=== PATIENT | male | born 1945 | race Caucasian/White ===

== ENCOUNTER 2016-10-10 10:36 | Emergency (ER) | payer OTHER, MEDICARE ==
--- NOTE | 2016-10-10 10:57 | CPEKG ---
Heart Rate: 65 RR Interval: 923 P-R Interval: 152 QRSD Interval: 86 QT Interval: 428 QTC Interval: 445 P [place]: 33 QRS [place]: -43 T Wave [place]: 15 EKG Severity - ABNORMAL ECG - EKG Impression: SINUS RHYTHM EKG Impression: LEFT ANTERIOR FASCICULAR BLOCK Electronically Signed By: Kirk Esparza 10-Oct-2016 15:49:13
--- NOTE | 2016-10-10 11:36 | DX ---
PA and Lateral Chest Clinical Indications: Dyspnea, sleep apnea, history of prostate cancer Comparison: July 08, 2016 January 21, 2014 Findings: There appears to be a destructive lytic process involving the posterior right second rib wh ere there may be a pathological fracture present. This is associated with some localized convex pleur al thickening The lungs are clear, and no lung mass or adenopathy are found. The heart and pulmonary vessels are normal. There are no pneumonia , pleural effusions or pneumothorax. No other lytic bon e lesion is identified. There is possibly some subtle new sclerosis in the T9 vertebral body. EKG chris ds overlie the chest. Impression: 1. Suspicious for bony metastatic disease. Consider chest CT and/or nuclear medicine who le-body bone scan for further evaluation. 2. No pneumonia identified. Results called to Dr. Kirk Esparza.
[2016-10-10 11:38] VITALS: RESP 16
--- NOTE | 2016-10-10 11:46 | UCPHY ---
H & P Patient Type: Established Chief Complaint Nursing Narrative: cough and chest congestion started on monday , chest discomfort with cough, left arm "nerve pain." denies fevers. shortness of breath Time Seen by Provider: 10/10/16 10:59 HPI/ROS: This patient with a history of metastatic prostate cancer presents with a cough and feeling of chest congestion that started over the weekend. He reports 2 days of symptoms. He has associated low-grade subjective fevers and nasal congestion. He also has noticed over the past month some left arm pain that feels like "nerve pain". He notices this primarily around the elbow area but reports that migrates up and down the arm a bit. This seems to be worse with movement of the arm and of the neck. He reports the pain is moderate intensity. ROS: constitutional: No headache Neuro: No numbness tingling or focal weakness Pulmonary: No pleuritic pain cardiovascular: No heart palpitations. No lower extremity swelling. Integumentary: No new skin rash. musculoskeletal: He has chronic neck pain and reports having some radicular symptoms in the past from his neck. 7 point ROS is otherwise negative Source: Patient Exam Limitations: No limitations - Medical/Surgical History Hx Asthma: No Hx Chronic Respiratory Disease: No Hx Diabetes: No Hx Cardiac Disease: No Hx Renal Disease: No Hx Cirrhosis: No Hx Alcoholism: No Hx HIV/AIDS: No Hx Splenectomy or Spleen Trauma: No Other PMH: Prostate cancer - Metastatic including bony Mets., knee replacements - Family History Significant Family History: No pertinent family hx - Social History Smoking Status: Former smoker Alcohol Use: Occasionally Drug Use: None - Physical Exam Exam: General Appearance: Alert, no distress. Eyes: Pupils equal and round no pallor or injection. ENT, Mouth: Mucous membranes moist. Neck: Supple. He has mild left lateral paraspinous muscular tenderness. With lateral flexion of the neck toward the left side seems to have more left arm symptoms Respiratory: Mild rhonchi bilaterally. No significant wheezing. No rales appreciated. Cardiovascular: Regular rate and rhythm. No murmur gallop rub. He has 2+ symmetric radialis pulses bilaterally. No lower extremity calf swelling or tenderness. Gastrointestinal: Abdomen is soft and nontender, no masses, bowel sounds normal. Neurological: alert. Patient maintains normal light touch sensory exam bilateral upper extremities and 5/5 strength bilateral upper extremities. He has weak but symmetric DTRs in biceps, triceps and brachioradialis bilaterally Skin: Warm and dry, no rashes. Extremities are symmetrical, full range of motion. Psychiatric: mood and affect are normal DIFFERENTIAL DIAGNOSIS: After history and physical exam differential diagnosis was considered for viral URI with cough, bronchitis, pneumonia, cervical radiculopathy, doubt cardiac ischemia, new bony Mets Constitutional: Initial Vital Signs Temperature (C) 36.9 C 10/10/16 10:44 Heart Rate 70 10/10/16 10:44 Respiratory Rate 18 10/10/16 10:44 Blood Pressure 133/86 H 10/10/16 10:44 O2 Sat (%) 95 10/10/16 10:44 O2 Delivery Mode Room Air Allergies/Adverse Reactions: morphine Allergy (Intermediate, Verified 10/10/16 11:02) HALLUCINATIONS, AGGRESSION Home Medications: Medication Instructions Recorded Hydrocodone/Acetaminophen 1 each PO Q4H PRN #90 tablet 01/16/16 [Hydrocodon-Acetaminophn 10-325] Doxycycline Hyclate 07/08/16 Effexor 07/08/16 Gabapentin 07/08/16 Lupron 07/08/16 Pravastatin Sodium 07/08/16 Xanax 07/08/16 Xtandi 07/08/16 Zometa 07/08/16 Albuterol Hfa Anes Only [Proair 2 puffs IH Q4 PRN #1 mdi 10/10/16 Hfa Icu (*)] Fluticasone Nasal [Flonase Nasal 2 sprays NASAL DAILY #1 mdi 10/10/16 [facility] (RX)] Gabapentin 200 mg PO BID #60 tablet 10/10/16 Medical Decision Making - Diagnostics EKG Interpretation: 12 lead EKG performed shortly after arrival at 10:55 a.m. reveals normal sinus rhythm at 65 his left anterior fascicular block. No acute ischemic changes. For complete read please see trace master Imaging: chest x-ray: Dr. Paul -radiologist called before I was read this x-ray noting that appears to be metastatic erosion of the right 2nd rib. He also has findings consistent with bronchitis but no focal infiltrates. ED Course/Re-evaluation: patient was initially placed on a monitor remained stable through his stay. I have counseled him regarding his bronchitis. Not think he is having a cardiac event. I think that his left arm pain is musculoskeletal will -likely a cervical radiculopathy without heart neuro deficits verses bony Mets. I counseled him regarding the evidence of any new bony mets to the right 2nd rib. He reports that he had a bone scan a couple weeks ago that was negative for that region at that time. I left a message with Dr. Maldonado regarding this finding -his oncologist. Their office was closed the day of the phone call. Encouraged patient follow up with Dr. Maldonado Despite the patient's bronchitis he appears clinically well without evidence of respiratory compromise or other concerning findings. Departure - Departure Disposition: Home, Routine, Self-Care Clinical Impression: Bronchitis, Left arm pain, Right 2nd rib bony erosion -possible met Condition: Good Instructions: Acute Bronchitis (ED) Additional Instructions: Diagnoses: 1. Bronchitis 2. Left arm pain Plan: humidifier Albuterol inhaler with spacer for cough, wheeze or shortness of breath Flonase steroid nasal spray for nasal congestion Follow up with primary care physician for any ongoing symptoms Good the emergency department for any significant worsening despite treatment plan Referrals: NONE *PRIMARY CARE P,. [Primary Care Provider] - As per Instructions Prescriptions: Fluticasone Nasal [Flonase Nasal [facility] (RX)] 2 sprays NASAL DAILY #1 mdi Gabapentin 200 mg PO BID #60 tablet Albuterol Hfa Anes Only [Proair Hfa Icu (*)] 2 puffs IH Q4 PRN #1 mdi PRN Reason: Wheezing - PQRS PQRS Measurement: 134: Depression screening and followup, PRIME MD-PHQ2 (12 years and older) Over the last 2 weeks, how often have you been bothered by any of the following problems? 1. Feeling down, depressed, or hopeless? 2. Little interest or pleasure in doing things? Patient answered no to both 1 and 2 130: Documentation of medications. Reviewed all patient medications, doses, route and frequency. 226: Do you smoke? [No.] 47: 65 and older: Advanced care planning. Patient designates surrogate decision maker as [Patient has advanced directive.] 51: 18 years old and older with diagnosis of COPD, spirometry performance. NA 52: 18 years old and older with COPD and symptoms of COPD or FEV1<60% predicted prescribed a B Agonist. NA
[2016-10-10 12:00] VITALS: BP 118/73; PULSE 59; TEMP 98.6; O2SAT 91
== END 2016-10-10 12:00 | disposition home or self-care (01) ==
LOC: CED 10:36
DX: J20.9 Acute bronchitis, unspecified (principal); Z85.46 Personal history of malignant neoplasm of prostate; C79.51 Secondary malignant neoplasm of bone; Z87.891 Personal history of nicotine dependence; Z96.653 Presence of artificial knee joint, bilateral
CPT/HCPCS: 71020; 93005; G0463; 87400-PO; 93010-PO; 99214-PO

== ENCOUNTER 2016-10-20 12:18 | Inpatient (IN) | payer OTHER, MEDICARE ==
[2016-10-20] MEDS ORDERED: HYDROmorphONE/DILAUDID 1 MG/ML SYR IVP ONE ×2 (13:21→17:30)
--- NOTE | 2016-10-20 13:28 | EDPHY ---
[id number]/12/17 12:50 HPI/ROS: CHIEF COMPLAINT: Increasing thoracic back pain HISTORY OF PRESENT ILLNESS: The patient has a history of aggressive metastatic prostate cancer. He has a history of known metastases in his thoracolumbar spine. He has undergone spinal radiation. Over the past 3 weeks he has had increasing pain in his thoracic spine without the development of acute lower extremity weakness or numbness. The patient reports his t pain is somewhat left -sided The patient has been taking oral narcotics at home without improvement. The patient contacted his regular oncologist who referred him to the hospital for admission and further evaluation of his back pain. REVIEW OF SYSTEMS: A comprehensive 10 point review of systems is otherwise negative aside from elements mentioned in the history of present illness. Source: Patient Exam Limitations: No limitations - Personal History Current Tetanus/Diphtheria Vaccine: Yes - Medical/Surgical History Hx Asthma: No Hx Chronic Respiratory Disease: No Hx Diabetes: No Hx Cardiac Disease: No Hx Renal Disease: No Hx Cirrhosis: No Hx Alcoholism: No Hx HIV/AIDS: No Hx Splenectomy or Spleen Trauma: No Other PMH: Prostate cancer - Metastatic including bony Mets., knee replacements - Social History Smoking Status: Former smoker - Physical Exam Exam: General Appearance: Alert, mild discomfort Eyes: Pupils equal and round no pallor or injection ENT, Mouth: Mucous membranes moist Respiratory: There are no retractions, lungs are clear to auscultation Cardiovascular: Regular rate and rhythm Gastrointestinal: Abdomen is soft and nontender, no masses, bowel sounds normal Neurological: A&O, normal motor function, normal sensory exam, normal cranial nerves Skin: Warm and dry, no rashes Musculoskeletal: Neck is supple nontender Extremities: symmetrical, full range of motion Constitutional: Initial Vital Signs Temperature (C) 36.6 C 10/20/16 12:24 Heart Rate 76 10/20/16 12:24 Respiratory Rate 18 10/20/16 12:24 Blood Pressure 137/52 H 10/20/16 12:24 O2 Sat (%) 95 10/20/16 12:24 O2 Delivery Mode Room Air Allergies/Adverse Reactions: morphine Allergy (Intermediate, Verified 10/20/16 12:23) HALLUCINATIONS, AGGRESSION Home Medications: Medication Instructions Recorded Hydrocodone/Acetaminophen 1 each PO Q4H PRN #90 tablet 01/16/16 [Hydrocodon-Acetaminophn 10-325] Doxycycline Hyclate 07/08/16 Effexor 07/08/16 Gabapentin 07/08/16 Lupron 07/08/16 Pravastatin Sodium 07/08/16 Xanax 07/08/16 Xtandi 07/08/16 Zometa 07/08/16 Albuterol Hfa Anes Only [Proair 2 puffs IH Q4 PRN #1 mdi 10/10/16 H[facility] (*)] Fluticasone Nasal [Flonase Nasal 2 sprays NASAL DAILY #1 mdi 10/10/16 [facility] (RX)] Gabapentin 200 mg PO BID #60 tablet 10/10/16 Medical Decision Making ED Course/Re-evaluation: The patient presents to the emergency department with intractable pain. The patient will require admission to the hospital. The patient is noted to be neurologically intact. The patient had an IV established. He received IV Dilaudid. The patient will be admitted to the hospital for further evaluation of his thoracic pain which is unmanageable. An MRI of his brain cervical spine and thoracic spine have been ordered at the request of his regular oncologist Dr. Maldonado. Consultation is made with Dr. Sebastián Estrada from the hospitalist service who will admit the patient. Differential Diagnosis: Differential diagnosis worsening spinal metastatic disease, worsening central metastatic disease, thoracic radiculopathy - Data Points Medications Given: Discontinued Medications Hydromorphone HCl (Dilaudid) 1 mg IVP EDNOW ONE Stop: 10/20/16 13:22 Last Admin: 10/20/16 13:27 Dose: 1 mg Departure - Departure Disposition: [facility] In[facility] Acute Clinical Impression: Prostate cancer metastatic to bone, Intractable back pain Condition: Fair
[2016-10-20] MEDS ORDERED: ONDANSETRON 4 MG/2 ML VIAL IVP PRN (14:23)
[2016-10-20] MEDS ORDERED: PROMETHAZINE HCL 25 MG/ML VIAL IVP PRN (14:23)
[2016-10-20] MEDS ORDERED: BISACODYL 10 MG SUPP PR PRN (14:24)
[2016-10-20] MEDS ORDERED: LACTULOSE 20 GM/30 ML UDCUP PO PRN (14:24)
[2016-10-20] MEDS ORDERED: POLYETHYLENE GLYCOL 3350 17 GM PKT PO PRN (14:24)
[2016-10-20] MEDS ORDERED: MAGNESIUM HYDROXIDE 30 ML UDCUP PO PRN (14:24)
[2016-10-20] MEDS ORDERED: HYDROmorphONE/DILAUDID 2 MG TAB ONE (14:31)
[2016-10-20] MEDS: HYDROmorphONE/DILAUDID 2 MG TAB PO PRN ×2 (14:34→18:08)
[2016-10-20] MEDS ORDERED: GADOBUTROL 10 ML VIAL IVP ONE (14:55)
--- NOTE | 2016-10-20 14:56 | GHP ---
[f rep st] HISTORY AND PHYSICAL DATE OF ADMISSION: 10/20/2016 CHIEF COMPLAINT: Back, neck and left arm pain. HISTORY OF PRESENT ILLNESS: This is a 71-year-old male with history of metastatic prostate cancer wi th metastases to bone and liver. He was directly admitted from his oncologist's office today due to worsening back, neck and left arm pain. The patient states that the pain is an 8/10, sharp, constant pain in his left midback, neck and left arm. He states his midthoracic back is numb, but has been s o since he has undergone radiation therapy for metastasis. He has been taking hydrocodone around the clock which decreases his pain to a 2-3, but the pain has been escalating to the point where it has not been as effective. The patient denies any recent trauma. He did notice a correlation with some pain that he described a s a muscle pain in his upper back that occurred at the end of August, early September after shohussain ruiz. PAST MEDICAL HISTORY: 1. Prostate cancer with metastases to liver and bone. 2. Pulmonary embolism on anticoagulation. PAST SURGICAL HISTORY: 1. Bilateral total knee replacements. 2. Appendectomy. 3. Hernia repair. 4. Eye surgery due to a detached retina. 5. Radiation therapy. HOME MEDICATIONS: Reviewed, refer to [facility] for details. ALLERGIES: Morphine has caused hallucinations. SOCIAL HISTORY: The patient is and lives with his . He is a former smoker. He denies a ny alcohol or illicit drug use. FAMILY HISTORY: Reviewed and is significant for coronary artery disease in his father as well as sharyn g cancer. REVIEW OF SYSTEMS: A comprehensive 10-point review of systems was done and is negative except for wh at was mentioned in the HPI and below. CONSTITUTIONAL: The patient reports some hot flashes which h e contributes to his Lupron therapy for which he takes Effexor which helps with the vasomotor symptom s. GI: The patient reports problems with constipation, but did have a bowel movement today. PHYSICAL EXAMINATION: VITAL SIGNS: Blood pressure 137/52, pulse of 76, respiratory rate 18, O2 satu ration 95% on room air, temperature afebrile. GENERAL: In no acute distress. HEAD: Normocephalic, atraumatic. EYES: PERRLA. Sclerae anicteric. MOUTH: Moist mucous membranes. NECK: Supple. No lymphadenopathy. CARDIOVASCULAR: S1, S2 no JVD. No lower extremity edema. PULMONARY: Lungs are clear. No wheezes, rales, or rhonchi. ABDOMEN: Soft, nontender, nondistended. No guarding or rebo und tenderness. Normoactive bowel sounds. EXTREMITIES: No clubbing or cyanosis. NEURO: Cranial n erves 2-12 grossly intact. Muscle strength 5/5 bilateral upper extremity flexion and extension, musc le strength 5/5 mems engineer bilaterally. No gross sensory deficits. BACK: There is tenderness in the midt horacic region in the paraspinal musculature adjacent T7 through T10, with no obvious deformities or step-offs. DIAGNOSTICS: None have been done at the time of my exam. ASSESSMENT AND PLAN: This is a 71-year-old male with history of metastatic prostate cancer presentin g with: 1. Severe intractable thoracic, neck, and left arm pain without any focal neurologic deficits, yokasta rning for a pathologic fracture. Plan: I discussed the case with Dr. Anthony Maldonado who is his [facility] oncologist and will proceed with an MRI of the brain, C-spine, T-spine, and L-spine. For now we will treat his pain supportively with both IV and oral Dilaudid. He will be placed on a bowel tamy col. His home dose of Neurontin will be continued and we may consider up-titrating the dose as indic ated as well as possibly adding a steroid. 2. History of pulmonary embolism. Plan: We will continue his home dose of warfarin and monitor his INR daily. The patient will be admitted to the hospital under observation status at this time pending further w orkup. /[id number]/MODL
[2016-10-20] MEDS ORDERED: WARFARIN SODIUM 5 MG TAB PO SCH (16:00)
[2016-10-20] MEDS ORDERED: LEUPROLIDE ACETATE SQ SCH (16:15)
[2016-10-20] MEDS: HYDROmorphONE/DILAUDID 2 MG/ML SYR IVP PRN (16:34)
[2016-10-20] MEDS ORDERED: HYDROmorphONE/DILAUDID 1 MG/ML SYR ONE (16:36)
--- NOTE | 2016-10-20 17:06 | MR ---
MRI of the Brain (Without and With Contrast) Clinical Indication: Severe brain pain in a 71-year-old male with metastatic prostate cancer; evalua te for intracranial extension. Technique: T1-weighted images were acquired axially and sagittally from the foramen magnum to the ve rtex. Axial T1-weighted, susceptibility-weighted, fast inversion-recovery, fast T2-weighted, and dif fusion-weighted axial images were obtained, without contrast. Following uneventful intravenous admin istration of 10 mL Gadavist contrast, axial T1-weighted images were performed. This contrast dose wa s employed for evaluation of the head, cervical and thoracic spinal regions. Findings: Multiple expansile osseous lesions are identified. There are two in the left parietal and temporoparietal regions. The more superior lesion measures 4 cm AP x 1.5 cm transverse. This tumor impinges on the adjacent subarachnoid space. The left temporal region osseous tumor measures 3 cm A P x 1 cm transverse. This lesion also impinges on subarachnoid space. A 3rd osseous lesion anterior ly in the frontal region measures 3 cm transverse x 1.5 cm AP. This also impinges on subarachnoid sp joseph. There is prominent asymmetric meningeal enhancement on the left side worrisome for carcinomatous involvement versus bland meningitis secondary to the adjacent tumor. No parenchymal mass lesion is identified. No hemorrhage is seen. Midline structures are in normal p ositions. Scattered areas of white matter T2 hyperintensity are seen, which do not demonstrate abnor mal enhancement and presumably are related to small vessel vascular change. Vascular structures appea r normal. Paranasal sinuses are clear. Impression: 1. 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 2. Asymmetric meningeal enhancement is worrisome for carcinomatous involvement versus gland meningiti s. 3. See above report for additional findings.
--- NOTE | 2016-10-20 17:29 | MR ---
MRI Cervical Spine (Without and With Contrast) History: Prostate cancer, with osseous metastasis, neck pain, back pain, and left-sided pain. Technique: Sagittal T1, T2, and axial T1, T2 MR sequences of the cervical spine, without contrast. Postcontrast sagittal and axial T1-weighted sequences obtained, with the uneventful intravenous admin istration of 10 mL Gadavist contrast utilized for the MRI of the brain, cervical spine, and thoracic spine. Findings: Multiple osseous metastases involving the vertebral bodies, most prominent at C5, C6, C7, T1, and T2, as well as the spinous processes of C6, C7, and T1. No pathologic compression fractures. C7 spinous process osseous metastases, with a dorsal epidural extension of metastasis and osseous met astasis, measuring 14 x 6 mm in sagittal dimension and 22 x 6 mm in axial dimension, extending into t he dorsal epidural space resulting in severe central canal stenosis, with cord compression, flattenin g and deformity, as well as cord edema from C6 through C7. Cerebellar tonsils are in normal positio n. C2-C3: Mild bilateral facet arthropathy resulting in mild to moderate right neural foraminal stenosi s, without central canal stenosis. C3-C4: Mild bilateral facet arthropathy resulting in mild to moderate bilateral neural foraminal boris nosis, without central canal stenosis. C4-C5: Moderate degenerative disk disease, with dorsal disk/osteophyte complex, mild bilateral facet arthropathy, and bilateral uncovertebral osteophytes, resulting in moderate central canal stenosis, with slight cord compression, and moderate to severe bilateral neural foraminal stenosis. C5-C6: Moderate degenerative disk disease, with dorsal disk/osteophyte complex, bilateral uncoverteb ral osteophytes, and mild bilateral facet arthropathy, resulting in moderate central canal stenosis, with partial effacement of the subarachnoid space, and moderate to severe bilateral neural foraminal stenosis. C6-C7: Severe degenerative disk disease, with degenerative grade 1 anterolisthesis, dorsal disk/oste ophyte complex, asymmetrically more prominent towards the left, bilateral uncovertebral osteophytes, and dorsal metastasis from the C6-C7 disk space level through C7, resulting in severe central canal s tenosis, with cord compression, flattening, and cord edema. C7-T1: Moderate degenerative disk disease, with dorsal disk/osteophyte complex, bilateral uncoverteb ral osteophytes, resulting in mild central canal stenosis and mild left neural foraminal stenosis. Impressions 1. Severe central canal stenosis and cord compression and deformity at C6-C7 secondary to dorsal epi dural metastasis, with cord edema. Recommend Neurosurgery Consult. 2. Multiple osseous metastases involving the vertebral bodies and posterior elements, most prominen t involving the spinous process of C7 and T1, and vertebral bodies of C5, C7, and T2. 3. Multilevel moderate to severe degenerative disk disease from C4-C5 through C7-T1, with dorsal dis k/osteophyte complexes and bilateral uncovertebral osteophytes, also resulting in moderate central ca nal stenosis at C4-C5 and C5-C6, and moderate to severe bilateral neural foraminal stenosis, as descr ibed above, worse at C4-C5, C5-C6, and C6-C7. 4. Please see above findings at specific disk levels. Findings and recommendations discussed with hospitalist, Dr. Sebastián Estrada, at 1656 hours, on October. A test result has been communicated to licensed care providers and documented in [facility]: 5:40:12 PM, 10/20/2016, Pansieve Message ID [id number]. 5:40:13 PM, 10/20/2016, [facility]ieve Message ID [id number].
--- NOTE | 2016-10-20 17:34 | MR ---
MRI Thoracic Spine Without and With Contrast 1603 hours History: Metastatic prostate carcinoma, worsening back and left pain. Technique: Sagittal T1/T2/STIR and axial T1/T2-weighted and post-contrast sagittal and axial t1-weigh gonzalez MR series of the thoracic spine prior to and following the uneventful intravenous administration of 10 mL of Gadavist contrast for the MRI of the brain, cervical spine thoracic spine. Findings: Multiple osseous metastasis throughout the thoracic vertebral bodies, most prominent at T3, T5, T7, T8, T9, and T12 vertebra with greater than 80% involvement of T9. Mild compression deformity of T9 vertebral body with 10% loss of height and minimal retropulsion. However, no evidence of cord compression. No cord compression or edema. Enhancement of multiple osseous vertebral bodies, especially T2, T5, T8 , T9, and T12. No evidence of enhancing cord lesions. Multilevel mild to moderate degenerative disk disease and mild to moderate bilateral facet arthropath y in the thoracic spine without evidence of thoracic disk herniations. Mild to moderate bilateral khloe ral foraminal stenosis at several levels secondary to degenerative disk disease and facet arthropathy . However, no significant central canal stenosis. Impression: 1. Multiple osseous metastasis involving the thoracic spine most prominent at T8, T9 and T12 vertebra l bodies with mild compression deformity of T9 and minimal retropulsion. 2. However, no evidence of cord compression in the thoracic spine.
[2016-10-20] MEDS ORDERED: NALOXONE HCL 0.4 MG/ML INJ IVP PRN (19:30)
[2016-10-20] MEDS: HYDROmorphONE/DILAUDID 6 MG/30 ML PCA IV PRN (19:52)
[2016-10-20] MEDS: SENNOSIDES/DOCUSATE SODIUM TAB PO SCH (20:09)
[2016-10-20] MEDS: ALPRAZolam 0.5 MG TAB PO SCH (20:09)
[2016-10-20] MEDS: GABAPENTIN 100 MG CAP PO SCH (20:09)
[2016-10-20] MEDS: PRAVASTATIN SODIUM 40 MG TAB PO SCH (20:09)
[2016-10-20] MEDS: DOXYCYCLINE HYCLATE 100 MG CAP/TAB PO SCH (20:10)
--- NOTE | 2016-10-20 23:52 | GCON ---
[f rep st] CONSULTATION NEUROSURGICAL CONSULTATION NOTE. DATE OF CONSULTATION: 10/20/2016 CONSULTING SERVICE: Hospitalist, Medicine, and Medical Oncology, Dr. Maldonado. REASON FOR CONSULTATION: Cervical epidural metastatic deposit with cord compression. HISTORY OF PRESENT ILLNESS: The patient is a pleasant 71-year-old gentleman who was diagnosed with p rostate cancer back in 2011. He has known metastatic disease to the liver and bony skeleton, includi ng the thoracolumbar spine. He has had brachytherapy to his liver mets and has also had radiation tr eatment to his thoracic spinal column, as well as to his calvarium where he has known mets as well. He has just completed calvarial radiation. He is also on maintenance chemotherapy with Dr. Maldonado. His radiation oncologist is Dr. Ben Dowd. 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 The intensity of his symptoms has increased during this time period. He was seen in Dr. Maldonado's office today and MRIs were ordered, and he was found to have a new juliette jessica epidural metastatic deposit at the C7 level, with significant cord compression likely explaining his new symptoms. The patient was admitted to the [facility], and I was consulted fo r surgical considerations. He has been taking hydrocodone and this does help with his pain control, but its effects are short-lived. Of note, he does have a history of pulmonary embolus and is anticoa gulated, and did take his Coumadin dose today. PAST MEDICAL AND SURGICAL HISTORY: As per HPI. Bilateral total knee replacements, appendectomy, her bebo repair, eye surgery due to a detached retina. ALLERGIES: Morphine. FAMILY HISTORY: Significant for coronary artery disease in his father, and lung cancer. SOCIAL HISTORY: Patient is , lives with his . He is a former smoker. He denies alcohol or illicit drug use or abuse. REVIEW OF SYSTEMS: Negative other than HPI. A 10-point review of system was done. PHYSICAL EXAMINATION: VITALS: T current 36.8, blood pressure 140/79, heart rate 70, respiratory rat e 18, saturating 98% on 2 L nasal cannula, saturating 93% on room air. NEUROLOGICAL: The patient is awake, alert, oriented x3, and appears stated age. He is in no acute d istress, but he is in obvious discomfort, and he has to occasionally stand and walk to relieve his ne ck and back pain. He has normal cranial nerve findings. He has a normal neurological exam. He has full strength in his upper extremities, except his left triceps is a 4 out of 5 in terms of power. Lili cm has a normal sensory exam. He has a normal reflex exam. He has a normal gait without balance issu es. He localizes his neck pain to approximately the C7 level posteriorly. LABS: There are no laboratory studies for review at this time. REVIEW OF IMAGING: The patient has an MRI of the brain, cervical and thoracic spine with and without contrast for review. To my read, he has known calvarial metastases, largest on the left side. He h as metastatic disease to his thoracic spinal column, but no epidural component and no obvious progres beata either. He has a dorsal epidural metastatic deposit at C7 with cord compression and neural fora seth narrowing bilaterally. ASSESSMENT AND PLAN: The patient is a 71-year-old male with history of pulmonary embolus, who is ful ly anticoagulated on warfarin, and a history of widely metastatic prostate cancer originally diagnose d in 2011, now with known mets to the liver, bony skeleton, spinal column, and calvarium, who has had 3 weeks of progressive neck and left scapular and left arm symptoms, including pain and numbness ezra n to his hand and some mild triceps weakness, with a C7 dorsal epidural metastatic deposit with cord compression. The patient's neurological exam is surprisingly good, and his main complaint is pain at this time. He is fully anticoagulated for pulmonary embolus, so it is important to hold his anticoa gulation and allow his INR to drift down to normal. I did discuss the case with Dr. Maldonado, his on cologist, and we decided that C6-7 laminectomy for resection of his epidural metastatic lesion is the best course of action at this time. I have discussed the timing of this with the operating room, an d tentatively have it planned for Monday, allowing us enough time for his INR to normalize. In terms of pain control, IV Decadron 4 mg q.6 hours, and also consider the addition of Neurontin and Toradol IV as needed to assist with pain control in the meantime. His neurological exam is being monitored, and I should be contacted with any changes. Following very closely. Thank you for this consult. /[id number]/MODL
[2016-10-21] MEDS: HYDROmorphONE/DILAUDID 6 MG/30 ML PCA IV PRN ×3 (02:45→21:28)
[2016-10-21 05:38] LABS: % IMMATURE GRANULYOCYTES 0.3 % (0.0-1.1); ABSOLUTE IMMATURE GRANULOCYTES 0.01 10^3/uL (0.00-0.10); ADD DIFF? NO; ADD MORPH? NO; ADD SCAN? NO; ATYPICAL LYMPHOCYTE FLAG 40 (0-99); FRAGMENT RBC FLAG 0 (0-99); HEMATOCRIT 37.5 % (40.0-51.0); HEMOGLOBIN 12.9 g/dL (13.7-17.5); LEFT SHIFT FLG 0 (0-99); LIPEMIA HEMOLYSIS FLAG 90 (0-99); MEAN CELL HEMOGLOBIN 33.9 pg (27.9-34.1); MEAN CELL HEMOGLOBIN CONCENTR. 34.4 g/dL (32.4-36.7); MEAN CELL VOLUME 98.7 fL (81.5-99.8); MEAN PLATELET VOLUME 9.2 fL (8.7-11.7); PLATELET CLUMPS FLAG 0 (0-99); PLATELET COUNT 186 10^3/uL (150-400); RED CELL DISTRIBUTION WIDTH 12.2 % (11.5-15.2)
[2016-10-21 05:46] LABS: INR 1.69 (0.83-1.16); PROTIME(PATIENT) 19.9 SEC (12.0-15.0)
[2016-10-21 05:54] LABS: ALANINE AMINOTRANSFERASE 32 IU/L (21-72); ALBUMIN 3.3 g/dL (3.5-5.0); ALKALINE PHOSPHATASE 118 IU/L (38-126); ANION GAP 8 mEq/L (8-16); ASPARTATE AMINOTRANSFERASE 37 IU/L (17-59); BILIRUBIN,TOTAL 0.9 mg/dL (0.1-1.4); CALCIUM 8.2 mg/dL (8.5-10.4); CARBON DIOXIDE 27 mEq/l (22-31); CHLORIDE 104 mEq/L (97-110); CREATININE 0.8 mg/dL (0.7-1.3); GLOMERULAR FILTRATION RATE > 60; GLUCOSE 94 mg/dL (70-100); POTASSIUM 4.6 mEq/L (3.5-5.2); SODIUM 139 mEq/L (134-144)
[2016-10-21] MEDS: HYDROmorphONE/DILAUDID 2 MG TAB PO PRN (06:06)
[2016-10-21] MEDS: DOXYCYCLINE HYCLATE 100 MG CAP/TAB PO SCH ×2 (08:17→21:33)
[2016-10-21] MEDS: SENNOSIDES/DOCUSATE SODIUM TAB PO SCH ×2 (08:17→21:33)
[2016-10-21] MEDS: GABAPENTIN 100 MG CAP PO SCH ×4 (08:17→21:33)
[2016-10-21] MEDS: VENLAFAXINE XR 75 MG CAP PO SCH (08:18)
[2016-10-21] MEDS ORDERED: ENZALUTAMIDE 160 MG PO SCH (09:00)
--- NOTE | 2016-10-21 09:07 | NEUSURGPN ---
Assessment/Plan: 71 yo male with metastatic prostate CA and brachytherapy to liver, radiation to thoracic column and calvarium. 3 weeks of neck, scapular and left arm pain, numbness and dorsal epidural met at C7. Hx PEs and fully anticoagulated on coumadin (now held) Plan: Hold Coumadin and let INR drift down May consider use of Toradol or Gabapentin for additional pain control if needed. C6/7 on Monday10/24/[address] Gabriel Discussed plan with Dr. Rios this AM. Subjective: in bed, pain is getting under better control. 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 He has persistent tingling in left arm Denies LE symptoms Objective: NEURO: CUMMINS, sens decreases in entire left arm strength in left arm limited by pain Alert and oriented x 4, speech clear INR 1.69 today (coumadin is held) Urinary Catheter in Place: No Neurosurgery Physical Exam - Vitals, I&O, Labs I and O 10/20/16 10/21/16 10/22/16 05:59 05:59 05:59 Intake Total 1600 Balance 1600 Weight 111.584 kg Intake: Oral (ml) 300 IV Intake (ml) 300 IV Infused (ml) 1000 Other: Number of Voids Toilet 2 Vital Signs Temp Pulse Resp BP Pulse Ox 36.5 C 75 17 125/74 H 96 10/21/16 08:32 10/21/16 08:32 10/21/16 08:32 10/21/16 08:32 10/21/16 08:32 Laboratory Results 10/21/16 05:02 10/21/16 05:02 ICD10 Worksheet Patient Problems: Problems Problem Status Diagnosed Intractable back pain Acute Prostate cancer metastatic to bone Acute Bronchitis Acute Left arm pain Acute Post procedure discomfort Acute Primary osteoarthritis of left knee Acute Primary osteoarthritis of right knee Acute Prostate cancer metastatic to liver Acute
[2016-10-21] MEDS ORDERED: HYDROmorphONE/DILAUDID 6 MG/30 ML PCA IV STA (10:13)
--- NOTE | 2016-10-21 10:22 | SOAPPROG ---
SOAP Progress Note Assessment/Plan: Assessment: 1.) Metastatic Prostate Carcinoma with newly developing/diagnosed cord compression seen in C-Spine MRI 10/20/16. Appreciate Neurosurgery evaluation and planned Laminectomy. Georgina Score 4+5 = 9 Prostate Carcinoma, diagnosed 2011. First line Tx External beam XRT - finished 10/21+ ADT until 06/2014 ( 2 years) Local (prostate) recurrence early 2014, S/P Prostate Cryotherapy and Biclutamide added to Lupron Liver met ( 9 cm) mass, S/P Docetaxel x 6 cycles, followed by Y90 embolization to Liver met. Complicated by PE- 01/2016. Due to disease progression in RP LN, started on Xtandi mid-2015 Rad TX. to T spine T9-T12 Rad. Tx to local skull lesion Most recent PSA 36. Received Zolendronic acid on 10/18/16. Due for Lupron next week. 2.) PE- see above. 3.) Pain control- will increase Dilaudid in HAIRCUTTER to include basal infusion rate of 2 mg/hour and to allow PRN dosing. Plan: 1.) See above. 2.) Neurosurgery planning C spine laminectomy as soon as feasible. 3.) With INR down, pt. can receive therapeutic enoxaparin which would allow neurosurgery, as planned. 10/21/16 10:22 Subjective: Pain in LUE is most prominent, in addition to upper spine pain when he sits upright. On Dilaudid HAIRCUTTER his pain this AM is 6-7 down from 9-10 last night. No N/V/C/D. No difficulty with Urine output. Objective: Avebrile, VSS as noted here. HEENT- anicteric, no oral thrush, No facial assymetry Neck- supple Chest- clear anteriorly and posteriorly CVS- RSR, no extra HS ABD- soft, NT , no mass or HSM, BS+ EXT- 1+ symmetric leg edema, skin intact Neuro- intact to light touch over chest and UE. Labs as noted here Hgb 12.9, PLT 186. INR 1.69 this AM. Vital Signs Temp Pulse Resp BP Pulse Ox 36.5 C 75 17 125/74 H 96 10/21/16 08:32 10/21/16 08:32 10/21/16 08:32 10/21/16 08:32 10/21/16 08:32 Laboratory Results 10/21/16 05:02 10/21/16 05:02 10/20/16 10/21/16 10/22/16 05:59 05:59 05:59 Intake Total 1600 Balance 1600 PT 19.9 SEC (12.0-15.0) H 10/21/16 05:02 INR 1.69 (0.83-1.16) H 10/21/16 05:02 ICD10 Worksheet Patient Problems: Problems Problem Status Diagnosed Intractable back pain Acute Prostate cancer metastatic to bone Acute Bronchitis Acute Left arm pain Acute Post procedure discomfort Acute Primary osteoarthritis of left knee Acute Primary osteoarthritis of right knee Acute Prostate cancer metastatic to liver Acute
[2016-10-21] MEDS: ENZALUTAMIDE 160 MG PO SCH ×2 (11:18→17:54)
[2016-10-21] MEDS: ENOXAPARIN 120 MG/0.8 ML SYR SC SCH ×2 (11:30→22:56)
[2016-10-21] MEDS: oxyCODONE CR 30 MG TAB PO SCH ×2 (12:33→21:33)
[2016-10-21] MEDS ORDERED: NALOXONE HCL 0.4 MG/ML INJ IVP PRN (14:45)
--- NOTE | 2016-10-21 16:09 | HOSPPROG ---
Hospitalist Progress Note Assessment/Plan: Assessment: 71-year-old male presents with acute pain in the setting of acute spinal cord compression from metastatic prostate cancer Plan: 1. Acute pain. Secondary to osseous metastases and spinal cord compression causing an element of neuropathic pain in his left upper extremity -placed on Dilaudid EMERGENCY CARE ATTENDANT, placed on a basal rate plus p.r.n. boluses -introducing sustained release pain control as outlined below -up titrated on his gabapentin to 200 mg 3 times daily -he will most likely experienced an element of pain control following surgery 2. Acute spinal cord edema and cord compression. Occurring at C6-C7 in the setting of metastatic prostate cancer, resulting in local swelling, edema, vascular congestion in the aforementioned area. -neurologic symptoms currently consist of left upper extremity and left lower extremity paresthesia without any paresis -initiate frequent neuro checks -discussed with Adams Conley from Neurosurgery, Neurosurgery consultation appreciated, I would recommend surgery as soon as the neurosurgical service is comfortable with the patient's INR level -I believe the patient's INR will be nearing 1.3 tomorrow a.m. now that we have held his Coumadin and his INR is demonstrating that it is downtrending -I will make the patient NPO after midnight tonight and hold his bridging dosage of Lovenox tonight so that he is able to be a surgical candidate if this is determined to be safe by the neurosurgical service (last dosage early afternoon 10/21) -he is an RCRI score of 0, conferring 0.5% perioperative cardiovascular risk of morbidity and mortality -consequently he is low risk patient for a high risk surgery, achieving good METs prior to this hospitalization 3. Pulmonary embolism. Chronic, the patient has been systemically anticoagulated with Coumadin and he is not currently demonstrating any evidence of bleeding on his MRIs -discussed with Dr. Rios, he has recommended bridging Lovenox therapy, 1 milligram/kg q.12 hours perioperatively -continue to hold Coumadin -continue to monitor INR -as mentioned above, will hold tonight's dosage so that he would be appropriate for surgery tomorrow -recommend we initiating Lovenox bridging therapy if it is determined that he will not receive surgery tomorrow 4. Chronic pain with continuous opiate dependency. Patient reports that he has been taking hydrocodone at home with a daily requirement of approximately 90 mg -utilizing EMERGENCY CARE ATTENDANT for breakthrough pain at this time -introducing oxycodone sustained release 30 mg twice daily beginning today -bowel regimen ordered 5. Metastatic prostate cancer. Patient is currently receiving Lupron and most recent PSA is 36 -appreciate ongoing oncology consultation -evidence of brain metastases as well as osseous metastases and those in the spinal cord Diet. Regular diet, NPO after midnight Prophylaxis. High risk patient, Lovenox bridging therapy Code. Full Disposition. Anticipated discharge is uncertain this time, anticipated length stay is greater than 48 hours warranting inpatient admission status for acute spinal cord edema and cord compression from metastatic prostate cancer requiring urgent neurosurgery, complicated by chronic pulmonary embolism requiring systemic anti coagulation. The patient's original inpatient admission date should be 10/20/2016 as he met all requirements for inpatient level of care. Subjective: Patient is ongoing pain, is amenable to initiating oxycodone sustained release Objective: Vital Signs Temp Pulse Resp BP Pulse Ox 36.8 C 69 12 132/77 H 93 10/21/16 12:16 10/21/16 12:16 10/21/16 12:16 10/21/16 12:16 10/21/16 12:16 Laboratory Results 10/21/16 05:02 10/21/16 05:02 10/20/16 10/21/16 10/22/16 05:59 05:59 05:59 Intake Total 1600 Balance 1600 PT 19.9 SEC (12.0-15.0) H 10/21/16 05:02 INR 1.69 (0.83-1.16) H 10/21/16 05:02 - Time Spent With Patient Time Spent with Patient: greater than 35 minutes Time Spent with Patient: Greater than 35 minutes spent on this patients care, greater than 50% of time spent counseling, educating, and coordinating care regarding the above mentioned plan. - Physical Exam Constitutional: uncomfortable, No not in pain Eyes: other (Left pupillary defect secondary to previous eye surgery) Cardiovascular: regular rate and rhythym, no murmur, rub, or gallop Respiratory: no respiratory distress, no rales or rhonchi, clear to auscultation Gastrointestinal: normoactive bowel sounds, soft, non-tender abdomen, no palpable masses Neurologic: AAOx3, CN II-XII Intact, No sensation intact bilaterally ( Paresthesias in the left upper and left lower extremity), No weakness (Motor strength 5/5 bilateral upper and lower extremities) Psychiatric: interacting appropriately, not anxious, not encephalopathic, thought process linear ICD10 Worksheet Patient Problems: Problems Problem Status Diagnosed Intractable back pain Acute Prostate cancer metastatic to bone Acute Bronchitis Acute Left arm pain Acute Post procedure discomfort Acute Primary osteoarthritis of left knee Acute Primary osteoarthritis of right knee Acute Prostate cancer metastatic to liver Acute
[2016-10-21] MEDS: DEXAMETHASONE 4 MG TAB PO SCH (17:56)
[2016-10-21] MEDS: PRAVASTATIN SODIUM 40 MG TAB PO SCH (21:33)
[2016-10-21] MEDS: ALPRAZolam 0.5 MG TAB PO SCH (21:33)
[2016-10-22] MEDS: DEXAMETHASONE 4 MG TAB PO SCH ×4 (00:13→17:51)
[2016-10-22] MEDS: HYDROmorphONE/DILAUDID 6 MG/30 ML PCA IV PRN ×5 (02:43→23:12)
[2016-10-22 05:41] LABS: % IMMATURE GRANULYOCYTES 0.4 % (0.0-1.1); ABSOLUTE IMMATURE GRANULOCYTES 0.02 10^3/uL (0.00-0.10); ADD DIFF? NO; ADD MORPH? NO; ADD SCAN? NO; ATYPICAL LYMPHOCYTE FLAG 0 (0-99); FRAGMENT RBC FLAG 0 (0-99); HEMATOCRIT 38.7 % (40.0-51.0); LEFT SHIFT FLG 0 (0-99); LIPEMIA HEMOLYSIS FLAG 80 (0-99); MEAN CELL HEMOGLOBIN 33.7 pg (27.9-34.1); MEAN CELL HEMOGLOBIN CONCENTR. 33.6 g/dL (32.4-36.7); MEAN CELL VOLUME 100.3 fL (81.5-99.8); MEAN PLATELET VOLUME 9.3 fL (8.7-11.7); PLATELET CLUMPS FLAG 0 (0-99); PLATELET COUNT 212 10^3/uL (150-400); RED BLOOD CELL COUNT 3.86 10^6/uL (4.40-6.38)
[2016-10-22 05:58] LABS: INR 1.78 (0.83-1.16); PROTIME(PATIENT) 20.8 SEC (12.0-15.0)
[2016-10-22 05:59] LABS: ANION GAP 7 mEq/L (8-16); CALCIUM 8.2 mg/dL (8.5-10.4); CARBON DIOXIDE 27 mEq/l (22-31); CHLORIDE 103 mEq/L (97-110); CREATININE 0.7 mg/dL (0.7-1.3); GLOMERULAR FILTRATION RATE > 60; GLUCOSE 106 mg/dL (70-100); POTASSIUM 5.6 mEq/L (3.5-5.2); SODIUM 137 mEq/L (134-144)
--- NOTE | 2016-10-22 08:53 | NEUSURGPN ---
Assessment/Plan: 71 yo male with metastatic prostate CA and brachytherapy to liver, radiation to thoracic column and calvarium. 3 weeks of neck, scapular and left arm pain, numbness and dorsal epidural met at C7. Hx PEs and fully anticoagulated on coumadin (now held) Plan: Hold Coumadin and let INR drift down, elevated this morning at 1.78 from 1.69 yesterday Possibly surgery tomorrow Monday10/23/[address] Gabriel with posterior C6/7 laminectomy if INR normalized. Could give 5mg of Vit K to lower INR, will defer to medicine. Will make NPO after midnight in case. If unable to do surgery Monday will proceed on Monday10/24/[address] Gabriel this AM. Subjective: Feeling better this morning with pain control. Pain at neck to left UE associated with numbness/tingling. No right UE symptoms. Objective: Awake. Alert. PERRL. EOMI Following commands Strength full Sensation intact - Physician Discussed Patient with Dr.: Other (Dr. Gabriel) Neurosurgery Physical Exam - Vitals, I&O, Labs I and O 10/21/16 10/22/16 10/23/16 05:59 05:59 05:59 Intake Total 1600 1500 Balance 1600 1500 Weight 111.584 kg 113.4 kg Intake: Oral (ml) 300 1500 IV Intake (ml) 300 IV Infused (ml) 1000 Other: Intake Quantity Yes Sufficient Number of Voids Toilet 2 1 Vital Signs Temp Pulse Resp BP Pulse Ox 36.8 C 66 16 109/53 L 97 10/22/16 07:46 10/22/16 07:46 10/22/16 07:46 10/22/16 07:46 10/22/16 07:46 Laboratory Results 10/22/16 04:43 10/22/16 04:43 ICD10 Worksheet Patient Problems: Problems Problem Status Diagnosed Intractable back pain Acute Prostate cancer metastatic to bone Acute Bronchitis Acute Left arm pain Acute Post procedure discomfort Acute Primary osteoarthritis of left knee Acute Primary osteoarthritis of right knee Acute Prostate cancer metastatic to liver Acute
[2016-10-22] MEDS: DOXYCYCLINE HYCLATE 100 MG CAP/TAB PO SCH ×2 (09:03→22:39)
[2016-10-22] MEDS: GABAPENTIN 100 MG CAP PO SCH ×3 (09:03→22:39)
[2016-10-22] MEDS: VENLAFAXINE XR 75 MG CAP PO SCH (09:03)
[2016-10-22] MEDS: oxyCODONE CR 30 MG TAB PO SCH ×2 (09:03→22:40)
[2016-10-22] MEDS: SENNOSIDES/DOCUSATE SODIUM TAB PO SCH ×2 (09:03→22:39)
[2016-10-22] MEDS: ENZALUTAMIDE 160 MG PO SCH (09:05)
[2016-10-22] MEDS ORDERED: PHYTONADIONE 2.5 MG/2.5 ML ORAL UDL PO ONE (09:26)
--- NOTE | 2016-10-22 09:29 | SOAPPROG ---
SOAP Progress Note Assessment/Plan: Assessment: 1. Castrate-resistant prostate cancer 2. Bone mets, progressive on Xtandi 3. C7 cord compression 4. h/o PE Plan: - will give vit K to lower INR in case he can go to OR tomorrow - hold lovenox prior to procedure; resume lovenox and coumadin afterwards when safe - after he has recovered from surgery, he will need a change in his therapy. We discussed Xofigo (radium 223) and Zytiga (antiandrogen) 10/22/16 09:27 Subjective: pain well controlled. Objective: exam: chronically ill, NAD Lungs: CTAB CV RRR no MGR Abd: +BS NT ND Ext: no edema Neuro; a+ox3. pain upon raising L arm. strength and sensation intact. Vital Signs Temp Pulse Resp BP Pulse Ox 36.8 C 66 16 109/53 L 97 10/22/16 07:46 10/22/16 07:46 10/22/16 07:46 10/22/16 07:46 10/22/16 07:46 Laboratory Results 10/22/16 04:43 10/22/16 04:43 10/21/16 10/22/16 10/23/16 05:59 05:59 05:59 Intake Total 1600 1500 Balance 1600 1500 PT 20.8 SEC (12.0-15.0) H 10/22/16 04:43 INR 1.78 (0.83-1.16) H 10/22/16 04:43 ICD10 Worksheet Patient Problems: Problems Problem Status Diagnosed Intractable back pain Acute Prostate cancer metastatic to bone Acute Bronchitis Acute Left arm pain Acute Post procedure discomfort Acute Primary osteoarthritis of left knee Acute Primary osteoarthritis of right knee Acute Prostate cancer metastatic to liver Acute
--- NOTE | 2016-10-22 15:28 | HOSPPROG ---
Hospitalist Progress Note Assessment/Plan: 71-year-old male admitted with acute left arm and neck pain. He was found to have a C7 dorsal epidural compression on the spinal: Secondary to metastatic lesion. Today's pain is in better control. Neurosurgery has evaluated and is planning surgery in 1-2 days when the INR falls to a therapeutic range. -C7 epidural compression secondary to metastatic lesion. Plan is for surgical decompression in 1-2 days when the INR is within a therapeutic range - anticoagulation with Coumadin secondary to a pulmonary embolus in February 2016. We are now holding the Coumadin and he has received vitamin K 5 mg p.o. today. The INR will be recheck in the a.m. and if it is therapeutic it is possible to do surgery tomorrow or in 1 more day. - Chronic pain with continuous opioid dependency. Pain at this time is well controlled. -metastatic prostatic cancer. 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 He is being followed by Oncology -medical clearance for surgery: Patient is currently medically cleared for surgery. Plan: Vitamin K 5 mg p. O. today and follow the INR when the INR is therapeutic neurosurgery will perform a C7 laminectomy and decompression. -Diet. Regular diet, NPO after midnight -Prophylaxis. High risk patient. Coumadin is being held in preparation for surgery. Anticoagulation will be restarted post surgery when it is safe probably within 1-2 days post surgery. -Code. Full Subjective: Patient reports his pain is in good control now. Denies chest pain shortness of breath orthopnea PND or sore throat. He is currently eating well. I have advised him to be NPO after midnight in preparation for possible surgery. Objective: Vital Signs Temp Pulse Resp BP Pulse Ox 36.9 C 68 18 134/67 H 96 10/22/16 12:04 10/22/16 12:04 10/22/16 12:04 10/22/16 12:04 10/22/16 12:04 Laboratory Results 10/22/16 04:43 10/22/16 04:43 10/21/16 10/22/16 10/23/16 05:59 05:59 05:59 Intake Total 1600 1500 Balance 1600 1500 PT 20.8 SEC (12.0-15.0) H 10/22/16 04:43 INR 1.78 (0.83-1.16) H 10/22/16 04:43 - Time Spent With Patient Time Spent with Patient: greater than 35 minutes Time Spent with Patient: Greater than 35 minutes spent on this patients care, greater than 50% of time spent counseling, educating, and coordinating care regarding the above mentioned plan. - Physical Exam Constitutional: no apparent distress Eyes: PERRL, anicteric sclera Ears, Nose, Mouth, Throat: moist mucous membranes, hearing normal Cardiovascular: regular rate and rhythym, no murmur, rub, or gallop Respiratory: no respiratory distress, no rales or rhonchi, reduced air movement Gastrointestinal: normoactive bowel sounds, soft, non-tender abdomen Skin: warm, normal color Musculoskeletal: other (Left hand shows that there is some abnormal sensation and ache in the for little finger and about the left elbow. Patient reports this is this is improved from yesterday.) Neurologic: AAOx3, CN II-XII Intact Psychiatric: interacting appropriately ICD10 Worksheet Patient Problems: Problems Problem Status Diagnosed Intractable back pain Acute Prostate cancer metastatic to bone Acute Bronchitis Acute Left arm pain Acute Post procedure discomfort Acute Primary osteoarthritis of left knee Acute Primary osteoarthritis of right knee Acute Prostate cancer metastatic to liver Acute
[2016-10-22 15:38] LABS: INR 1.56 (0.83-1.16); PROTIME(PATIENT) 18.7 SEC (12.0-15.0)
[2016-10-22 15:53] LABS: POTASSIUM 4.7 mEq/L (3.5-5.2)
[2016-10-22] MEDS: PRAVASTATIN SODIUM 40 MG TAB PO SCH (22:39)
[2016-10-22] MEDS: ALPRAZolam 0.5 MG TAB PO SCH (22:39)
[2016-10-23] MEDS: DEXAMETHASONE 4 MG TAB PO SCH ×3 (00:31→17:31)
[2016-10-23] MEDS: HYDROmorphONE/DILAUDID 2 MG TAB PO PRN ×3 (02:20→19:32)
[2016-10-23] MEDS: HYDROmorphONE/DILAUDID 6 MG/30 ML PCA IV PRN ×3 (03:29→21:31)
[2016-10-23 05:13] LABS: % IMMATURE GRANULYOCYTES 0.2 % (0.0-1.1); ABSOLUTE IMMATURE GRANULOCYTES 0.01 10^3/uL (0.00-0.10); ADD DIFF? NO; ADD MORPH? NO; ADD SCAN? NO; ATYPICAL LYMPHOCYTE FLAG 10 (0-99); FRAGMENT RBC FLAG 0 (0-99); HEMOGLOBIN 11.9 g/dL (13.7-17.5); LEFT SHIFT FLG 0 (0-99); LIPEMIA HEMOLYSIS FLAG 90 (0-99); MEAN CELL HEMOGLOBIN 34.3 pg (27.9-34.1); MEAN PLATELET VOLUME 9.4 fL (8.7-11.7); PLATELET CLUMPS FLAG 0 (0-99); PLATELET COUNT 199 10^3/uL (150-400); RED BLOOD CELL COUNT 3.47 10^6/uL (4.40-6.38); RED CELL DISTRIBUTION WIDTH 11.8 % (11.5-15.2)
[2016-10-23 05:25] LABS: ANION GAP 8 mEq/L (8-16); CALCIUM 8.5 mg/dL (8.5-10.4); CARBON DIOXIDE 27 mEq/l (22-31); CHLORIDE 103 mEq/L (97-110); CREATININE 0.7 mg/dL (0.7-1.3); GLOMERULAR FILTRATION RATE > 60; GLUCOSE 120 mg/dL (70-100); POTASSIUM 4.4 mEq/L (3.5-5.2); SODIUM 138 mEq/L (134-144)
[2016-10-23 05:33] LABS: INR 1.25 (0.83-1.16); PROTIME(PATIENT) 15.7 SEC (12.0-15.0)
--- NOTE | 2016-10-23 10:53 | NEUSURGPN ---
Assessment/Plan: 71 yo male with metastatic prostate CA and brachytherapy to liver, radiation to thoracic column and calvarium. 3 weeks of neck, scapular and left arm pain, numbness and dorsal epidural met at C7. Hx PEs and fully anticoagulated on coumadin (now held) Plan: Hold Coumadin and let INR drift down, given 5 mg of Vit K yesterday morning. INR now 1.25 Plan for surgery today Monday10/23/[address] Gabriel with posterior C6/7 laminectomy Consents signed NPO Discussed plan with Dr. Gabriel this AM. Subjective: Continues to have right scapular pain to right posterior arm pain. Objective: Awake. Alert. PERRL. EOMI Following commands Left triceps weakness at 4+/5 - Physician Discussed Patient with Dr.: Other (Nery) Neurosurgery Physical Exam - Vitals, I&O, Labs I and O 10/22/16 10/23/16 10/24/16 05:59 05:59 05:59 Intake Total 1500 863 Balance 1500 863 Weight 113.4 kg Intake: Oral (ml) 1500 400 IV Intake (ml) 450 IV Infused (ml) 13 HYDROmorphone HCL 6 mg ( 13 See Protocol) IV PRN PRN Rx#:[id number] Other: Intake Quantity Yes Yes Sufficient Number of Voids Toilet 1 3 1 Vital Signs Temp Pulse Resp BP Pulse Ox 36.4 C 70 18 145/85 H 96 10/23/16 10:00 10/23/16 10:00 10/23/16 10:00 10/23/16 10:00 10/23/16 10:00 Laboratory Results 10/23/16 04:37 10/23/16 04:37 ICD10 Worksheet Patient Problems: Problems Problem Status Diagnosed Intractable back pain Acute Prostate cancer metastatic to bone Acute Bronchitis Acute Left arm pain Acute Post procedure discomfort Acute Primary osteoarthritis of left knee Acute Primary osteoarthritis of right knee Acute Prostate cancer metastatic to liver Acute
[2016-10-23] MEDS ORDERED: ceFAZolin 2 GM/DEXTROSE 100 ML IV ONE (10:54)
[2016-10-23] MEDS ORDERED: SURGIFLO MATRIX KIT WITH THROMBIN TP ONE (11:00)
[2016-10-23] MEDS ORDERED: TRIAMCINOLONE ACETONIDE 40 MG/ML VIAL ONE (11:01)
[2016-10-23] MEDS ORDERED: BUPIVACAINE/EPI 0.25% 30 ML SDV ONE (11:01)
[2016-10-23] MEDS ORDERED: THROMBIN (RECOMBINANT) 5,000 UNIT VIAL TP ONE (11:01)
[2016-10-23] MEDS ORDERED: SKIN ADHESIVE (DERMABOND) 1 EACH TP ONE (11:01)
[2016-10-23] MEDS: DOXYCYCLINE HYCLATE 100 MG CAP/TAB PO SCH ×2 (11:02→19:35)
[2016-10-23] MEDS ORDERED: BACITRACIN 50,000 UNITS/10 ML SYR IRR ONE (11:02)
[2016-10-23] MEDS: ENZALUTAMIDE 160 MG PO SCH (11:03)
[2016-10-23] MEDS: VENLAFAXINE XR 75 MG CAP PO SCH (11:03)
[2016-10-23] MEDS: SENNOSIDES/DOCUSATE SODIUM TAB PO SCH ×2 (11:03→20:30)
[2016-10-23] MEDS: GABAPENTIN 100 MG CAP PO SCH ×3 (11:03→20:31)
[2016-10-23] MEDS: oxyCODONE CR 30 MG TAB PO SCH ×2 (11:03→19:32)
--- NOTE | 2016-10-23 11:16 | SOAPPROG ---
SOAP Progress Note Assessment/Plan: Assessment: 1. Castrate-resistant prostate cancer 2. Bone mets, progressive on Xtandi 3. C7 cord compression 4. h/o PE Plan: - to OR this afternoon - resume anticoagulation when feasible after surgery - after pt has recovered from surgery, will discuss next steps in cancer treatment (eg Zytiga, Xofigo) Subjective: pain well controlled. Objective: exam unchanged Vital Signs Temp Pulse Resp BP Pulse Ox 36.4 C 70 18 145/85 H 96 10/23/16 10:00 10/23/16 10:00 10/23/16 10:00 10/23/16 10:00 10/23/16 10:00 Laboratory Results 10/23/16 04:37 10/23/16 04:37 10/22/16 10/23/16 10/24/16 05:59 05:59 05:59 Intake Total 1500 863 Balance 1500 863 PT 15.7 SEC (12.0-15.0) H 10/23/16 04:37 INR 1.25 (0.83-1.16) H 10/23/16 04:37 ICD10 Worksheet Patient Problems: Problems Problem Status Diagnosed Intractable back pain Acute Prostate cancer metastatic to bone Acute Bronchitis Acute Left arm pain Acute Post procedure discomfort Acute Primary osteoarthritis of left knee Acute Primary osteoarthritis of right knee Acute Prostate cancer metastatic to liver Acute
[2016-10-23] MEDS ORDERED: HYDROmorphONE/DILAUDID 1 MG/ML SYR IVP ONE (12:00)
[2016-10-23] MEDS ORDERED: MIDAZOLAM 2 MG/2 ML VIAL ONE (12:05)
[2016-10-23] MEDS ORDERED: CEFAZOLIN 2 GM/DEXTROSE/100 ML BAG IV ONE (12:09)
[2016-10-23] MEDS ORDERED: fentaNYL 100 MCG/2 ML INJ ONE (12:13)
[2016-10-23] MEDS ORDERED: PROPOFOL 200 MG/20 ML VIAL ONE (12:14)
[2016-10-23] MEDS ORDERED: ROCURONIUM 50 MG/5 ML VIAL ONE (12:15)
[2016-10-23] MEDS ORDERED: METOCLOPRAMIDE 10 MG/2 ML VIAL ONE (12:15)
[2016-10-23] MEDS ORDERED: ONDANSETRON 4 MG/2 ML VIAL ONE (12:15)
[2016-10-23] MEDS ORDERED: DIAZEPAM 10 MG/2 ML SYR IVP PRN (15:18)
[2016-10-23] MEDS ORDERED: ACETAMINOPHEN 325 MG TAB PO PRN (15:18)
[2016-10-23] MEDS ORDERED: DIAZEPAM 5 MG TAB PO PRN (15:18)
--- NOTE | 2016-10-23 15:27 | POSTOPPROG ---
Post Op Note Date of Operation: 10/23/16 Surgeon: Celestine Gabriel Air Grinder: Radha Marcus PA-C Pre-op Diagnosis: Cervical stenosis, epidural tumor Post-op Diagnosis: Cervical stenosis, epidural tumor Procedure: Posterior C6/7 laminectomy Inf/Abcess present in the surg proc area at time of surgery?: No EBL: 50-100 Drains: Marlon Larsen Specimen(s): C7 epidural tumor sent to pathology A/P Assessment: 71 yo male s/p C6/7 laminectomy for epidural tumor Plan: - neuro checks - pain control - MAYANK x 1 - soft collar as needed for comfort - start DVT prophylactic dose of Lovenox on POD#1 - may resume Coumadin possibly POD#3-5 pending drain output - PT/OT - decadron taper ordered for 1 week Exam Awake. Following commands, Moving all ext Incision with dressing c/d/i
[2016-10-23] MEDS ORDERED: *MD ORDERING ONLY-DEXAMETHASONE TAPER IVP/PO SCH (15:30)
--- NOTE | 2016-10-23 15:35 | DX ---
Intraoperative Fluoroscopy of the Cervical Spine Clinical History: 71-year-old male with a history of metastatic prostate cancer. A high-grade canal s tenosis with cord compression at C6-C7 secondary to dorsal epidural metastases, presenting for a C7 l aminectomy. Findings: Dr. Remberto Gabriel used 34.4 seconds of fluoroscopy time with an exposure dose of 15.4 mGy. AP and lateral views of the cervical spine were obtained. On the AP image at 1:14 p.m., a needle has be en positioned along the central superior C7 level and on the lateral view, there are some forceps pro jected over the soft tissues of the upper back. There is osseous superimposition precluding evaluatio n of the cervicothoracic junction on this view. Impression: Intraoperative fluoroscopy of the cervical spine.
[2016-10-23] MEDS ORDERED: HYDROmorphONE/DILAUDID 2 MG/ML SYR ONE (15:54)
--- NOTE | 2016-10-23 16:40 | HOSPPROG ---
Hospitalist Progress Note Assessment/Plan: 71-year-old male admitted with acute left arm and neck pain. He was found to have a C7 dorsal epidural compression on the spinal: Secondary to metastatic lesion. Today patient had epidural decompression. He is currently post op, doing well. Reports no pain in left arm, -C7 epidural compression secondary to metastatic lesion. s/p decompression by neurosurgery. doing well - anticoagulation with Coumadin secondary to a pulmonary embolus in February 2016. We are now holding the Coumadin and he has received vitamin K 5 mg p.o. today. Will restart coumadin in 2 days if no bleeding or complications from surgery. Will need lovenox bridging - Chronic pain with continuous opioid dependency. Pain at this time is well controlled. -metastatic prostatic cancer. 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 He is being followed by Oncology Plan: post op care, watch for bleeding, restart anticoag in 1-2 days if no post op bleeding issues. Check with neurosurgery before starting anticoag -Prophylaxis. High risk patient. Anticoagulation will be restarted post surgery when it is safe probably within 1-2 days post surgery. -Code. Full Subjective: sleepy and drowsy. Reports no pain in left arm. Objective: Vital Signs Temp Pulse Resp BP Pulse Ox 36.3 C 94 16 130/72 H 97 10/23/16 15:26 10/23/16 15:26 10/23/16 15:26 10/23/16 16:16 10/23/16 16:24 Laboratory Results 10/23/16 04:37 10/23/16 04:37 10/22/16 10/23/16 10/24/16 05:59 05:59 05:59 Intake Total 0728 041 5641.8 Output Total 230 Balance 4467 600 7670.8 PT 15.7 SEC (12.0-15.0) H 10/23/16 04:37 INR 1.25 (0.83-1.16) H 10/23/16 04:37 - Time Spent With Patient Time Spent with Patient: greater than 25 minutes Time Spent with Patient: Greater than 25 minutes spent on this patients care, greater than 50% of time spent counseling, educating, and coordinating care regarding the above mentioned plan. - Physical Exam Constitutional: no apparent distress Eyes: PERRL Ears, Nose, Mouth, Throat: moist mucous membranes Cardiovascular: regular rate and rhythym, no murmur, rub, or gallop Respiratory: no respiratory distress, no rales or rhonchi, clear to auscultation Gastrointestinal: normoactive bowel sounds, soft, non-tender abdomen, no palpable masses Neurologic: other (drowsy post op) ICD10 Worksheet Patient Problems: Problems Problem Status Diagnosed Intractable back pain Acute Prostate cancer metastatic to bone Acute Bronchitis Acute Left arm pain Acute Post procedure discomfort Acute Primary osteoarthritis of left knee Acute Primary osteoarthritis of right knee Acute Prostate cancer metastatic to liver Acute
[2016-10-23] MEDS: DEXAMETHASONE VARIABLE DOSE IVP/PO SCH (17:13)
[2016-10-23] MEDS: ALPRAZolam 0.5 MG TAB PO SCH (20:30)
[2016-10-23] MEDS: PRAVASTATIN SODIUM 40 MG TAB PO SCH (20:31)
[2016-10-23] MEDS: METHOCARBAMOL 750 MG TAB PO PRN (20:33)
[2016-10-23] MEDS: FAMOTIDINE 20 MG/NACL 50 ML IV SCH (21:21)
[2016-10-24] MEDS: DEXAMETHASONE VARIABLE DOSE IVP/PO SCH ×2 (00:17→09:11)
[2016-10-24 05:18] LABS: % IMMATURE GRANULYOCYTES 0.3 % (0.0-1.1); ABSOLUTE IMMATURE GRANULOCYTES 0.02 10^3/uL (0.00-0.10); ADD DIFF? NO; ADD MORPH? NO; ADD SCAN? NO; ATYPICAL LYMPHOCYTE FLAG 0 (0-99); FRAGMENT RBC FLAG 0 (0-99); HEMOGLOBIN 11.3 g/dL (13.7-17.5); LEFT SHIFT FLG 0 (0-99); LIPEMIA HEMOLYSIS FLAG 90 (0-99); MEAN CELL HEMOGLOBIN 34.1 pg (27.9-34.1); MEAN CELL HEMOGLOBIN CONCENTR. 34.2 g/dL (32.4-36.7); MEAN CELL VOLUME 99.7 fL (81.5-99.8); MEAN PLATELET VOLUME 9.4 fL (8.7-11.7); PLATELET CLUMPS FLAG 0 (0-99); PLATELET COUNT 190 10^3/uL (150-400); RED BLOOD CELL COUNT 3.31 10^6/uL (4.40-6.38)
[2016-10-24 05:24] LABS: INR 1.14 (0.83-1.16); PROTIME(PATIENT) 14.5 SEC (12.0-15.0)
[2016-10-24 05:38] LABS: ANION GAP 7 mEq/L (8-16); CALCIUM 7.8 mg/dL (8.5-10.4); CARBON DIOXIDE 28 mEq/l (22-31); CHLORIDE 105 mEq/L (97-110); CREATININE 0.6 mg/dL (0.7-1.3); GLOMERULAR FILTRATION RATE > 60; GLUCOSE 99 mg/dL (70-100); POTASSIUM 4.5 mEq/L (3.5-5.2); SODIUM 140 mEq/L (134-144)
--- NOTE | 2016-10-24 07:19 | NEUSURGPN ---
Date of Surgery: 10/23/16 Post Op Day: 1 Assessment/Plan: Assessment: 71 yo male s/p C6/7 laminectomy for epidural tumor resection POD #1 Plan: -neuro checks -continue with current pain control -MAYANK x 1-continue -soft collar as needed for comfort -ok to start DVT prophylactic dose of Lovenox on POD #[address] Gabriel -may resume Coumadin possibly POD #3-5 pending drain output -PT/OT -decadron taper ordered for 1 week -call NS with any changes or issues -will continue to follow -plan for dc from NS standpoint in next 1-2 days Subjective: No new complaints or concerns. Pt with some continued neck pain. No new events overnight. No cp/sob/abd or gu complaints. Objective: Awake. Alert. PERRL. EOMI Following commands SAUNDRA x 4 = except left triceps weakness at 4+/5 CDI Neuro Check Frequency: per routine Urinary Catheter in Place: No Catheter Insertion Date: 10/23/16 - Physician Discussed Patient with Dr.: Other (Nery) Neurosurgery Physical Exam - Vitals, I&O, Labs I and O 10/23/16 10/24/16 10/25/16 05:59 05:59 05:59 Intake Total 863 2674.8 400 Output Total 1552 1 Balance 863 1122.8 399 Intake: Oral (ml) 400 500 400 IV Intake (ml) 450 1568 IV Infused (ml) 13 606.8 HYDROmorphone HCL 6 mg ( 13 6.8 See Protocol) IV PRN PRN Rx#:[id number] ceFAZolin 1 GM/DEXTROSE 100 50 ml @ 200 mls/hr IV Q8H GERALD Rx#:[id number] Famotidine 20 mg/NaCl 50 50 ml @ 200 mls/hr IV Q12HRS GERALD Rx#:[id number] NS W/ 20 KCl/L 1,000 ml @ 450 75 mls/hr IV CONT GERALD Rx #:[id number] Output: Urine (ml) 1450 1 Toilet 1 Urinal 1450 Estimated Blood Loss (ml) 20 Wound Drainage (ml) 82 Right Neck Marlon Larsen 82 Other: Intake Quantity Yes Sufficient Number of Voids Toilet 3 2 Number of Stools Toilet 1 1 Vital Signs Temp Pulse Resp BP Pulse Ox 36.6 C 73 16 123/63 H 96 10/24/16 04:02 10/24/16 04:02 10/24/16 04:02 10/24/16 04:02 10/24/16 04:02 Laboratory Results 10/24/16 04:31 10/24/16 04:31 ICD10 Worksheet Patient Problems: Problems Problem Status Diagnosed Intractable back pain Acute Prostate cancer metastatic to bone Acute Bronchitis Acute Left arm pain Acute Post procedure discomfort Acute Primary osteoarthritis of left knee Acute Primary osteoarthritis of right knee Acute Prostate cancer metastatic to liver Acute
[2016-10-24] MEDS: FAMOTIDINE 20 MG/NACL 50 ML IV SCH (08:24)
[2016-10-24] MEDS: ENZALUTAMIDE 160 MG PO SCH (08:24)
[2016-10-24] MEDS: SENNOSIDES/DOCUSATE SODIUM TAB PO SCH ×2 (08:29→21:20)
[2016-10-24] MEDS: DOXYCYCLINE HYCLATE 100 MG CAP/TAB PO SCH ×2 (08:29→21:18)
[2016-10-24] MEDS: oxyCODONE CR 30 MG TAB PO SCH ×2 (08:29→21:20)
[2016-10-24] MEDS: VENLAFAXINE XR 75 MG CAP PO SCH (08:29)
[2016-10-24] MEDS: GABAPENTIN 100 MG CAP PO SCH ×3 (08:29→21:19)
[2016-10-24] MEDS: NS W/ 20 KCl/L 1,000 ML IV SCH ×2 (11:47→23:33)
[2016-10-24] MEDS: HYDROmorphONE/DILAUDID 6 MG/30 ML PCA IV PRN ×2 (14:03→22:35)
--- NOTE | 2016-10-24 14:18 | SOAPPROG ---
SOAP Progress Note Assessment/Plan: Assessment: - Castrate-resistant prostate cancer - Bone mets, progressive on Xtandi - C7 cord compression - s/p decompression. Pain in arm markedly improved. He is ambulating with a walker. - Path pending - h/o PE - can resume anticoag per neurosurgery. - Pain - still requiring GENERAL MAINTENANCE TECHNICIAN Plan: - resume anticoagulation - check path when available - He will need a change in therapy. Lupron will continue (due this week but can be given next week). Xtandi will be discontinued. Choice is Zytiga vs. Xofigo vs. Clinical trial if he is eligible Subjective: Still having some pain and needs GENERAL MAINTENANCE TECHNICIAN. He is wondering when he will be allowed to drive again (he will take this up with neurosurgery). Objective: Vital Signs Temp Pulse Resp BP Pulse Ox 37.1 C 80 16 166/86 H 97 10/24/16 12:00 10/24/16 12:00 10/24/16 12:00 10/24/16 12:00 10/24/16 12:00 Laboratory Results 10/24/16 04:31 10/24/16 04:31 10/22/16 10/23/16 10/24/16 23:59 23:59 23:59 Intake Total 13 2523.8 1401 Output Total 1332 221 Balance 13 1191.8 1180 PT 14.5 SEC (12.0-15.0) 10/24/16 04:31 INR 1.14 (0.83-1.16) 10/24/16 04:31 Physical Exam - Physical Exam General Appearance: alert, mild distress Neuro/Psych: alert, oriented x 3, No cognition abnormalities ICD10 Worksheet Patient Problems: Problems Problem Status Diagnosed Intractable back pain Acute Prostate cancer metastatic to bone Acute Bronchitis Acute Left arm pain Acute Post procedure discomfort Acute Primary osteoarthritis of left knee Acute Primary osteoarthritis of right knee Acute Prostate cancer metastatic to liver Acute
--- NOTE | 2016-10-24 15:00 | HOSPPROG ---
Hospitalist Progress Note Assessment/Plan: 71-year-old male admitted with acute left arm and neck pain. He was found to have a C7 dorsal epidural compression on the spinal Secondary to metastatic lesion. Today is postop day 1. From a cord decompression by Neurosurgery and he is doing well. -C7 epidural compression secondary to metastatic lesion. s/p decompression by neurosurgery. doing well - anticoagulation with Coumadin secondary to a pulmonary embolus in February 2016. We are now holding the Coumadin and he has received vitamin K 5 mg p.o. today. Will restart coumadin in 2 days if no bleeding or complications from surgery. Will need lovenox bridging - Chronic pain with continuous opioid dependency. Pain at this time is well controlled. -metastatic prostatic cancer. 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 He is being followed by Oncology Plan: post op care, watch for bleeding, restart anticoag in 1-2 days if no post op bleeding issues. Check with neurosurgery before starting anticoag -Prophylaxis. High risk patient. Anticoagulation will be restarted post surgery when it is safe probably within 1-2 days post surgery. -Code. Full Subjective: Patient drowsy secondary to pain relief yet reports that the pain and discomfort in his left hand resolved. He says he has only postop pain in the back of his neck. Objective: Vital Signs Temp Pulse Resp BP Pulse Ox 37.1 C 80 16 166/86 H 97 10/24/16 12:00 10/24/16 12:00 10/24/16 12:00 10/24/16 12:00 10/24/16 12:00 Laboratory Results 10/24/16 04:31 10/24/16 04:31 10/23/16 10/24/16 10/25/16 05:59 05:59 05:59 Intake Total 863 2674.8 400 Output Total 1552 1 Balance 863 1122.8 399 PT 14.5 SEC (12.0-15.0) 10/24/16 04:31 INR 1.14 (0.83-1.16) 10/24/16 04:31 - Time Spent With Patient Time Spent with Patient: greater than 35 minutes Time Spent with Patient: Greater than 35 minutes spent on this patients care, greater than 50% of time spent counseling, educating, and coordinating care regarding the above mentioned plan. - Physical Exam Eyes: PERRL, anicteric sclera Ears, Nose, Mouth, Throat: moist mucous membranes, hearing normal, other (The back of the neck shows a surgical wound with some serous drainage without significant inflammation. The area is minimally tender.) Cardiovascular: regular rate and rhythym, no murmur, rub, or gallop, systolic murmur Respiratory: no respiratory distress, no rales or rhonchi, clear to auscultation Gastrointestinal: normoactive bowel sounds, soft, non-tender abdomen, no palpable masses Musculoskeletal: generalized weakness Neurologic: AAOx3, CN II-XII Intact Psychiatric: interacting appropriately ICD10 Worksheet Patient Problems: Problems Problem Status Diagnosed Intractable back pain Acute Prostate cancer metastatic to bone Acute Bronchitis Acute Left arm pain Acute Post procedure discomfort Acute Primary osteoarthritis of left knee Acute Primary osteoarthritis of right knee Acute Prostate cancer metastatic to liver Acute
[2016-10-24] MEDS: ENOXAPARIN 40 MG/0.4 ML SYR SC SCH (17:35)
[2016-10-24] MEDS: DEXAMETHASONE 4 MG TAB PO SCH ×2 (17:35→23:30)
[2016-10-24] MEDS: ALPRAZolam 0.5 MG TAB PO SCH (21:17)
[2016-10-24] MEDS: FAMOTIDINE 20 MG TAB PO SCH (21:19)
[2016-10-24] MEDS: PRAVASTATIN SODIUM 40 MG TAB PO SCH (21:20)
--- NOTE | 2016-10-24 22:45 | GOP ---
[f rep st] OPERATIVE REPORT DATE OF OPERATION: 10/23/2016 SURGEON: Celestine Gabriel MD MOTOR VEHICLE COMPLIANCE ANALYST: Radha Marcus PA-C ANESTHESIA: GETA. PREOPERATIVE DIAGNOSIS: Widely metastatic prostate cancer with a dorsal epidural metastatic deposit at C7 level with spinal cord compression. Intractable neck, left arm, and left scapular pain. POSTOPERATIVE DIAGNOSIS: Widely metastatic prostate cancer with a dorsal epidural metastatic deposit at C7 level with spinal cord compression. Intractable neck, left arm, and left scapular pain. PROCEDURE PERFORMED: Cervical-7 laminectomy for resection of a dorsal epidural metastatic deposit an d use of fluoroscopy. FINDINGS: Well decompressed spinal cord at the C7 level at the end of the procedure. SPECIMENS: Epidural tumor to Pathology for permanent section. ESTIMATED BLOOD LOSS: 300 cc. INDICATIONS: The patient is a very pleasant 71-year-old gentleman with an approximately 5-year histo ry of prostate cancer with mets to his bones, liver, spinal column. He is a patient of Dr. Maldonado and Dr. Dowd and he came to the hospital after a clinic visit with Dr. Maldonado resulted in the dis covery of an epidural met at C7 likely responsible for his preoperative complaints of neck, left arm pain, numbness and weakness, and left-sided scapular pain. The patient has a history of pulmonary em bolus and was therapeutically anticoagulated on Coumadin. It took 3 days for his INR to normalize at this point in time we discussed proceeding to the operating room for a cervical laminectomy for rese ction of his epidural met that was too sizable to treat with radiation or systemic chemotherapy. The patient was counseled in detail, as was his . The risks and benefits were discussed and all que stions were answered. The patient signed informed consent and we proceed to the operating room. DESCRIPTION OF PROCEDURE: The patient was brought to the operating room and a surgical time-out was performed. Antibiotic prophylaxis was infused for infection. The patient was induced under general anesthesia and an endotracheal tube was placed. MILAN hose and SCDs were placed for DVT prophylaxis. Appropriate IV access was obtained. The patient's head was pinned in a 3-point Maldonado cathead operator and he was turned into a prone position on an open Marlon table and the Reading cathead operator was sec ured to the bed. The patient's arms were placed at his side and pressure points were padded, and his arms were secured to his side with sheets clamped with penetrating towel clamps. The shoulders were retracted downward with 3-inch surgical tape. The posterior neck was cleansed with chlorhexidine sh ampoo, rubbing alcohol, and ChloraPrep solution. A midline posterior cervical incision was planned b y palpating the spinous prostheses and tracing the planned incision with a marking pen. The sterile field was draped with blue towels and Ioban and a sterile surgical drape. The fluoroscopy machine wa s draped sterilely and brought onto the field. A spinal needle was inserted into a prominent ventral location where there was a prominent spinal spinous process felt to be consistent with the C7 level. This was confirmed with AP and lateral x-rays multiple times. An approximately 3 cm incision was p lanned Spanning from the lower half of C6 all the way down through C7 and the upper half of T1. A ramirez rgical time was performed. 10 cc of a 0.25% Marcaine with 1:200,000 parts epinephrine solution was i njected along the planned incision line. Several minutes were allowed for this to take effect for he mostatic purposes. A #15 scalpel was used to make an incision through the epidermis and dermal layer s and into the subcutaneous fat layer. Weitlaner retractor was used to retract the tissues and the m idline dissection was continued with the Bovie electrocautery down through the posterior cervical juliette jessica raphe. A prominent spinous process was palpated and the paraspinal musculature was dissected sli ghtly bilaterally off the spinous process. A Ron clamp was placed on the spinous process, and the fluoroscopy machine was brought back onto the operating field, and this was confirmed to be the C7 c ervical vertebra. Now that we knew our correct level, dissection of the paraspinal musculature off t he spinous process and lamina of C7 was continued bilaterally. I was careful not to expose too much of the lateral mass and C6-7 or C7-T1 joint space on either side. Retraction was maintained with a c urved cerebellar retractor. A Leksell rongeur was used to remove the interspinous ligament from C6-7 and C7-T1 and the spinous process of C7. A laminectomy was then performed with use of a high-speed drill with a match stick bur until the ligamentum flavum was exposed. At this point, the ligamentum flavum was difficult to distinguish due to discoloration from the epidural tumor and blunt instrument s were used to create a plane between the ligament and the tumor itself. Once this plane was identif ied, the ligament was easily resected with Kerrison rongeurs. At this point, it was obvious that the re was slightly hemorrhagic, holbrook-appearing tumor in the epidural space. A large chunk of this tissu e was placed in formalin and sent for permanent section. The remainder of the epidural mass was rese cted without difficulty. At this point in time, it was apparent that the cervical cord at this level had been adequately decompressed. The laminectomy essentially spanned the entire C7 segment, but di d not require us to include C6 or T1. The wound was irrigated copiously with antibiotic solution and hemostasis of the epidural space was obtained quite easily. At this point in time, a #7 MAYANK drain wa s placed into the operative bed. The paraspinal musculature was closed with 0 pop-off Vicryl suture and the cervical dorsal fascia was also closed with 0 pop-off Vicryl suture. The suprafascial compar tment was irrigated with copious antibiotic solution. The dermal layer was closed with interrupted i nverted 2-0 pop-off Vicryl sutures. The drainage tube was secured with 2-0 Vicryl suture and the bul b was placed to full compress suction. The wound edges were approximated well. The wound was cleans ed and dried and a layer of glue was applied. This was allowed to dry and the drapes were taken down . The wound and the drain site were dressed sterilely. The patient was removed from his Reading he ad vital and returned to a supine position on a gurney. He was reversed from the effects of anesthe leighton and extubated. All counts were correct and there were no immediate surgical or postoperative com plications. The patient was taken to the postanesthetic recovery unit and was found to be in stable neurological condition. His was updated as to the events of the procedure. He was sent to a stsurgical floor for recovery with instructions for MAYANK drainage and postoperative pain control. IMPLANTS: None. COMPLICATIONS: None. /[id number]/MODL
[2016-10-25 05:36] LABS: % IMMATURE GRANULYOCYTES 0.6 % (0.0-1.1); ABSOLUTE IMMATURE GRANULOCYTES 0.03 10^3/uL (0.00-0.10); ADD DIFF? NO; ADD MORPH? NO; ADD SCAN? NO; ATYPICAL LYMPHOCYTE FLAG 0 (0-99); FRAGMENT RBC FLAG 0 (0-99); HEMATOCRIT 32.7 % (40.0-51.0); HEMOGLOBIN 11.4 g/dL (13.7-17.5); LEFT SHIFT FLG 0 (0-99); LIPEMIA HEMOLYSIS FLAG 90 (0-99); MEAN CELL HEMOGLOBIN 33.7 pg (27.9-34.1); MEAN CELL HEMOGLOBIN CONCENTR. 34.9 g/dL (32.4-36.7); MEAN CELL VOLUME 96.7 fL (81.5-99.8); MEAN PLATELET VOLUME 9.5 fL (8.7-11.7); PLATELET CLUMPS FLAG 20 (0-99); PLATELET COUNT 178 10^3/uL (150-400); RED BLOOD CELL COUNT 3.38 10^6/uL (4.40-6.38); RED CELL DISTRIBUTION WIDTH 11.8 % (11.5-15.2)
[2016-10-25 05:43] LABS: INR 1.08 (0.83-1.16); PROTIME(PATIENT) 13.9 SEC (12.0-15.0)
[2016-10-25 06:00] LABS: ANION GAP 6 mEq/L (8-16); CALCIUM 8.2 mg/dL (8.5-10.4); CARBON DIOXIDE 30 mEq/l (22-31); CHLORIDE 101 mEq/L (97-110); CREATININE 0.6 mg/dL (0.7-1.3); GLOMERULAR FILTRATION RATE > 60; GLUCOSE 105 mg/dL (70-100); POTASSIUM 4.6 mEq/L (3.5-5.2); SODIUM 137 mEq/L (134-144)
--- NOTE | 2016-10-25 07:30 | NEUSURGPN ---
Assessment/Plan: Assessment: 71 yo male s/p C6/7 laminectomy for epidural tumor resection POD #2 Plan: -neuro checks -continue with current pain control -MAYANK x 1-continue this am, may d/c later today -soft collar as needed for comfort -ok to start DVT prophylactic dose of Lovenox on POD #[address] Gabriel -may resume Coumadin possibly POD #3-5 pending drain output -PT/OT -decadron taper ordered for 1 week -call NS with any changes or issues -will continue to follow -plan for dc from NS standpoint in next 1-2 days, after MAYANK drain d/c and pain management optimized. Subjective: Arm pain 80% improved. Objective: NAD A&Ox3 MAEx4 left tricep 4/5. Incision c/d/i. MAYANK drain serosanguineous Catheter Insertion Date: 10/23/16 - Physician Discussed Patient with Dr.: Other (Nery) Neurosurgery Physical Exam - Vitals, I&O, Labs I and O 10/24/16 10/25/16 10/26/16 05:59 05:59 05:59 Intake Total 2674.8 1330 Output Total 1552 71 10 Balance 1122.8 1259 -10 Intake: Oral (ml) 500 700 IV Intake (ml) 1568 IV Infused (ml) 606.8 630 HYDROmorphone HCL 6 mg ( 6.8 30 See Protocol) IV PRN PRN Rx#:[id number] ceFAZolin 1 GM/DEXTROSE 100 50 ml @ 200 mls/hr IV Q8H GERALD Rx#:[id number] Famotidine 20 mg/NaCl 50 50 ml @ 200 mls/hr IV Q12HRS GERALD Rx#:[id number] NS W/ 20 KCl/L 1,000 ml @ 450 600 75 mls/hr IV CONT GERALD Rx #:[id number] Output: Urine (ml) 1450 1 Toilet 1 Urinal 1450 Estimated Blood Loss (ml) 20 Wound Drainage (ml) 82 70 10 Right Neck Marlon Larsen 82 70 10 Other: Intake Quantity Yes Sufficient Number of Voids Toilet 2 3 1 Number of Stools Toilet 1 Vital Signs Temp Pulse Resp BP Pulse Ox 36.5 C 67 16 153/89 H 98 10/25/16 06:18 10/25/16 06:18 10/25/16 06:18 10/25/16 06:18 10/25/16 06:18 Laboratory Results 10/25/16 05:15 10/25/16 05:15 ICD10 Worksheet Patient Problems: Problems Problem Status Diagnosed Intractable back pain Acute Prostate cancer metastatic to bone Acute Bronchitis Acute Left arm pain Acute Post procedure discomfort Acute Primary osteoarthritis of left knee Acute Primary osteoarthritis of right knee Acute Prostate cancer metastatic to liver Acute
[2016-10-25] MEDS: FAMOTIDINE 20 MG TAB PO SCH ×2 (08:19→20:16)
[2016-10-25] MEDS: GABAPENTIN 100 MG CAP PO SCH ×3 (08:19→21:09)
[2016-10-25] MEDS: oxyCODONE CR 30 MG TAB PO SCH ×2 (08:19→20:17)
[2016-10-25] MEDS: VENLAFAXINE XR 75 MG CAP PO SCH (08:19)
[2016-10-25] MEDS: SENNOSIDES/DOCUSATE SODIUM TAB PO SCH ×2 (08:20→20:17)
[2016-10-25] MEDS: DEXAMETHASONE 4 MG TAB PO SCH ×2 (08:21→20:16)
[2016-10-25] MEDS: ENOXAPARIN 40 MG/0.4 ML SYR SC SCH (08:21)
[2016-10-25] MEDS: DOXYCYCLINE HYCLATE 100 MG CAP/TAB PO SCH ×2 (09:52→20:15)
[2016-10-25] MEDS: ENZALUTAMIDE 160 MG PO SCH (09:52)
--- NOTE | 2016-10-25 10:28 | SOAPPROG ---
SOAP Progress Note Assessment/Plan: Assessment: - Castrate-resistant prostate cancer - Bone mets, progressive on Xtandi - C7 cord compression - s/p decompression. Pain in L arm markedly improved. He is ambulating with a walker. - Path pending - h/o PE - can resume anticoag per neurosurgery. - Pain - Changing to orals Plan: - resume anticoagulation - check path when available - He will need a change in therapy. Lupron will continue (due this week but can be given next week). Xtandi will be discontinued. Choice is Zytiga vs. Xofigo vs. Clinical trial if he is eligible. Options can be discussed as an outpatient. OK for D/C from hospital when cleared by NS/hospitalists Subjective: L arm pain is significantly improved Objective: Vital Signs Temp Pulse Resp BP Pulse Ox 36.5 C 63 16 134/89 H 93 10/25/16 08:00 10/25/16 08:00 10/25/16 08:00 10/25/16 08:00 10/25/16 08:00 Laboratory Results 10/25/16 05:15 10/25/16 05:15 10/23/16 10/24/16 10/25/16 23:59 23:59 23:59 Intake Total 2523.8 1431 900 Output Total 1332 221 80 Balance 1191.8 1210 820 PT 13.9 SEC (12.0-15.0) 10/25/16 05:15 INR 1.08 (0.83-1.16) 10/25/16 05:15 Physical Exam - Physical Exam General Appearance: alert, no apparent distress Respiratory: lungs clear Cardiac/Chest: regular rate, rhythm Abdomen: normal bowel sounds ICD10 Worksheet Patient Problems: Problems Problem Status Diagnosed Intractable back pain Acute Prostate cancer metastatic to bone Acute Bronchitis Acute Left arm pain Acute Post procedure discomfort Acute Primary osteoarthritis of left knee Acute Primary osteoarthritis of right knee Acute Prostate cancer metastatic to liver Acute
[2016-10-25] MEDS: HYDROmorphONE/DILAUDID 2 MG TAB PO PRN (14:32)
--- NOTE | 2016-10-25 14:47 | HOSPPROG ---
Hospitalist Progress Note Assessment/Plan: # C7 cord compression s/p laminectomy - MAYANK drain in place - likely dc tomorrow per nsg - dex taper per nsg - pain control on PO meds # LUE weakness/neck pain - better post-op # metastatic prostate cancer - planning change in tx per onc # PE 02/2016 - start AC possibly tomorrow per nsg - will bridge # chronic pain on continuous narcotics - controlled # vte ppx - lovenox per nsg # FCFT ## new pt to me chart reviewed MRI's reviewed Subjective: pain well controlled; no weakness Objective: Vital Signs Temp Pulse Resp BP Pulse Ox 36.4 C 87 16 125/82 H 95 10/25/16 13:06 10/25/16 13:06 10/25/16 13:06 10/25/16 13:06 10/25/16 13:06 Laboratory Results 10/25/16 05:15 10/25/16 05:15 10/24/16 10/25/16 10/26/16 05:59 05:59 05:59 Intake Total 2674.8 1330 Output Total 1552 71 10 Balance 1122.8 1259 -10 PT 13.9 SEC (12.0-15.0) 10/25/16 05:15 INR 1.08 (0.83-1.16) 10/25/16 05:15 - Physical Exam Constitutional: no apparent distress, appears nourished Cardiovascular: regular rate and rhythym, no murmur, rub, or gallop Respiratory: no respiratory distress, no rales or rhonchi, clear to auscultation Gastrointestinal: normoactive bowel sounds, soft, non-tender abdomen ICD10 Worksheet Patient Problems: Problems Problem Status Diagnosed Intractable back pain Acute Prostate cancer metastatic to bone Acute Bronchitis Acute Left arm pain Acute Post procedure discomfort Acute Primary osteoarthritis of left knee Acute Primary osteoarthritis of right knee Acute Prostate cancer metastatic to liver Acute
[2016-10-25] MEDS: HYDROmorphONE/DILAUDID 2 MG/ML SYR IVP PRN (17:15)
[2016-10-25] MEDS ORDERED: DEXAMETHASONE VARIABLE DOSE IVP/PO SCH (20:00)
[2016-10-25] MEDS: PRAVASTATIN SODIUM 40 MG TAB PO SCH (20:17)
[2016-10-25] MEDS: ALPRAZolam 0.5 MG TAB PO SCH (21:09)
[2016-10-26] MEDS: HYDROmorphONE/DILAUDID 2 MG/ML SYR IVP PRN (01:29)
[2016-10-26] MEDS: DEXAMETHASONE 4 MG TAB PO SCH (08:00)
[2016-10-26] MEDS: ENOXAPARIN 40 MG/0.4 ML SYR SC SCH (08:00)
[2016-10-26] MEDS: GABAPENTIN 100 MG CAP PO SCH (08:01)
[2016-10-26] MEDS: VENLAFAXINE XR 75 MG CAP PO SCH (08:01)
[2016-10-26] MEDS: FAMOTIDINE 20 MG TAB PO SCH (08:01)
[2016-10-26] MEDS: METHOCARBAMOL 750 MG TAB PO PRN (08:02)
[2016-10-26] MEDS: DOXYCYCLINE HYCLATE 100 MG CAP/TAB PO SCH (08:02)
[2016-10-26] MEDS: SENNOSIDES/DOCUSATE SODIUM TAB PO SCH (08:02)
[2016-10-26] MEDS: oxyCODONE CR 30 MG TAB PO SCH (08:03)
[2016-10-26] MEDS: HYDROmorphONE/DILAUDID 2 MG TAB PO PRN ×2 (08:03→14:41)
--- NOTE | 2016-10-26 08:35 | SOAPPROG ---
SOAP Progress Note Assessment/Plan: Assessment: 71 yo M POD #3 C7 laminectomy for resection of lesion Plan: stable and doing well post op MAYANK x 1 and will keep for now and likley discharge home with MAYANK in, patient can see Dr Gabriel at [facility] on Monday to remove path pending scd/gonzalez/lovenox for dvt prophylaxis ok to start coumadin today per Dr Gabriel PT/OT ok to discharge from Neurosurgery standpoint if cleared by IM/Oncology please call with neuro changes discussed with Dr Gabriel 10/26/16 08:31 10/26/16 08:33 Subjective: minimal neck pain, arm pain improving. No weakness. Objective: Vital Signs Temp Pulse Resp BP Pulse Ox 37.1 C 68 16 141/79 H 99 10/26/16 00:00 10/26/16 08:00 10/26/16 08:00 10/26/16 08:00 10/26/16 08:00 Laboratory Results 10/25/16 05:15 10/25/16 05:15 10/25/16 10/26/16 10/27/16 05:59 05:59 05:59 Intake Total 1330 2350 Output Total 71 65 Balance 1259 2285 PT 13.9 SEC (12.0-15.0) 10/25/16 05:15 INR 1.08 (0.83-1.16) 10/25/16 05:15 AAOX4, +FC PERRL, EOMI, no facial droop 5/5 + light touch C/D/I ICD10 Worksheet Patient Problems: Problems Problem Status Diagnosed Intractable back pain Acute Prostate cancer metastatic to bone Acute Bronchitis Acute Left arm pain Acute Post procedure discomfort Acute Primary osteoarthritis of left knee Acute Primary osteoarthritis of right knee Acute Prostate cancer metastatic to liver Acute
[2016-10-26] MEDS: ENZALUTAMIDE 160 MG PO SCH (09:59)
[2016-10-26] MEDS ORDERED: HYDROCODONE/APAP 5/325 TAB ONE (11:29)
[2016-10-26] MEDS ORDERED: HYDROCODONE/APAP 5/325 TAB PO PRN (11:32)
[2016-10-26 13:08] VITALS: BP 111/88; PULSE 76; RESP 14; TEMP 98.2; O2SAT 95
--- NOTE | 2016-10-26 14:04 | SOAPPROG ---
RONALDO Progress Note Assessment/Plan: Assessment: - Castrate-resistant prostate cancer - Bone mets, progressive on Xtandi - C7 cord compression - s/p decompression. Pain in L arm markedly improved. He is ambulating with a walker. - Path pending - h/o PE - anticoagulation resumed - Pain - ok on orals Plan: - check path when available - He will need a change in therapy. Lupron will continue (due this week but can be given next week). Xtandi will be discontinued. Choice is Zytiga vs. Xofigo vs. Clinical trial if he is eligible. Options can be discussed as an outpatient. OK for D/C from hospital from oncology service point of view. I'll sign off for now. Please call with questions. He should follow up with Dr. Maldonado as an outpatient within the week. Subjective: No new problems. Wants to go home. Objective: Vital Signs Temp Pulse Resp BP Pulse Ox 36.8 C 76 14 111/88 H 95 10/26/16 13:07 10/26/16 13:07 10/26/16 13:07 10/26/16 13:07 10/26/16 13:07 Laboratory Results 10/25/16 05:15 10/25/16 05:15 10/24/16 10/25/16 10/26/16 23:59 23:59 23:59 Intake Total 1431 3000 450 Output Total 221 110 25 Balance 1210 2890 425 PT 13.9 SEC (12.0-15.0) 10/25/16 05:15 INR 1.08 (0.83-1.16) 10/25/16 05:15 Physical Exam - Physical Exam General Appearance: alert, no apparent distress Skin: pallor Neuro/Psych: normal mood/affect, oriented x 3 ICD10 Worksheet Patient Problems: Problems Problem Status Diagnosed Intractable back pain Acute Prostate cancer metastatic to bone Acute Bronchitis Acute Left arm pain Acute Post procedure discomfort Acute Primary osteoarthritis of left knee Acute Primary osteoarthritis of right knee Acute Prostate cancer metastatic to liver Acute
--- NOTE | 2016-10-26 15:21 | PDIAF ---
- Diagnosis Diagnosis: cervical fusion Code Status: Full Code - Medication Management Discharge Medications: Medications to Continue on Transfer Hydrocodone/Acetaminophen [Hydrocodon-Acetaminophn 10-325] 1 each PO Q4H PRN # 90 tablet 01/16/16 [Last Taken Unknown] ALPRAZolam [Xanax 0.5 MG (*)] 0.5 mg PO HS 07/08/16 [Last Taken Unknown] Doxycycline Hyclate [Vibramycin 100 MG (*)] 100 mg PO BID 07/08/16 [Last Taken 10/20/16] Enzalutamide [Xtandi] 160 mg PO DAILY 07/08/16 [Last Taken Unknown] Leuprolide Acetate [Lupron] 1 mg SQ Q90D 07/08/16 [Last Taken 07/27/16] Pravastatin Sodium 40 mg PO HS 07/08/16 [Last Taken 10/19/16] Venlafaxine Xr [Effexor Xr 75MG (*)] 75 mg PO DAILY 07/08/16 [Last Taken ] Zometa 1 ea SQ Q30D 07/08/16 [Last Taken Unknown] Gabapentin [Neurontin 100 MG (*)] 100 mg PO TID 10/20/16 [Last Taken Unknown] Warfarin Sodium [Coumadin 5MG (*)] 5 mg PO DAILY16 10/20/16 [Last Taken 10/19/16 ] Acetaminophen [Tylenol 325mg (*)] 325 - 650 mg PO Q4HRS PRN #0 tab 10/26/16 [ Last Taken Unknown] Dexamethasone [Decadron 2 MG (*)] 2 mg PO DAILY 1 Days 10/26/16 [Last Taken Unknown] Sennosides/Docusate Sodium [Senokot-S] 1 - 2 tab PO BID tab 10/26/16 [Last Taken Unknown] oxyCODONE CR [Oxycontin] 30 mg PO BID #60 tab 10/26/16 [Last Taken Unknown] Discharge Medications: Refer to the Discharge Home Medication list for PRN reason. - Orders Services needed: Home Care, Physical Therapy, Occupational Therapy Home Care Face to Face: I certify that this patient was under my care and that I had the required [id number] encounter meeting the encounter requirements on the discharge day. My findings support the fact that the patient is homebound as defined in CMS Chapter 7 Medicare Benefits Manual 30.1.1, The condition of the patient is such that there exists a normal inability to leave home and consequently, leaving home would require a considerable and taxing effort. - Follow Up Care Current Providers and Referrals: Osiel Chino DO [Primary Care Provider] - As per Instructions
--- NOTE | 2016-10-26 16:33 | GDS ---
[f rep st] DISCHARGE SUMMARY DIAGNOSES: 1. C7 cord compression status post laminectomy. 2. Left upper extremity weakness and neck pain due to C7 cord compression. 3. Metastatic prostate cancer. 4. Pulmonary embolism in February of 2016. 5. Chronic pain, on continuous narcotics. HOSPITAL COURSE: This is a 71-year-old man who was sent in by his primary oncologist for worsening back pain in the setting of metastatic prostate cancer. An MRI obtained here showed C7 cord compression due to metastatic disease. He was seen by Neurosurgery, who recommended operative fixation. This was somewhat slightly complicated by him being on warfarin for history of PE. He received 5 mg of vitamin K to reverse his INR. He underwent surgery on 10/23/2016. This was a posterior C6-7 laminectomy. A MAYANK drain was placed. He has done well postoperatively. His MAYANK has continued to put out, however. I have discussed his anticoagulation with Neurosurgery. Neurosurgery recommends restarting Coumadin today. I have recommended this to the patient. Initially, we had considered bridging him with Lovenox. However, he will be discharged with a MAYANK drain, and I feel that the risks and benefits favor starting Coumadin without bridging. I have discussed this with the patient as well as his friend , Buck. He will follow up with Dr. Gabriel on Monday, 4 days after discharge to pull his MAYANK drain. He has been given home care PT and OT to assist him postoperatively. He has been given a prescription for OxyContin for 30 days. He has been given a prescription for a short Decadron taper. He is discharged in stable condition. BILLING: I spent more than 30 minutes on the day of discharge coordinating care. /[id number]/MODL MTDD
[2016-10-27] MEDS ORDERED: LEUPROLIDE ACETATE SQ SCH (09:00)
[2016-10-27] MEDS ORDERED: DEXAMETHASONE VARIABLE DOSE IVP/PO SCH (20:00)
[2016-10-27] MEDS ORDERED: DEXAMETHASONE 2 MG TAB PO SCH (20:00)
[2016-10-30] MEDS ORDERED: DEXAMETHASONE VARIABLE DOSE IVP/PO SCH (08:00)
[2016-10-30] MEDS ORDERED: DEXAMETHASONE 2 MG TAB PO SCH (08:00)
== END 2016-10-26 16:31 | disposition home health service (06) | DRG 29 ==
LOC: F1N 16:57 → F3N 10-23 15:05
PROVIDERS: ADMIT Family Medicine; ATTEND Family Medicine
PROC: 00NW0ZZ Release Cervical Spinal Cord, Open Approach (ICD-10-PCS; principal; 2016-10-23 09:00)
PROC: 00BW0ZZ Excision of Cervical Spinal Cord, Open Approach (ICD-10-PCS; principal; 2016-10-23 09:00)
DX: C79.49 Secondary malignant neoplasm of other parts of nervous system (principal); M50.023 Cervical disc disorder at C6-C7 level with myelopathy; C79.51 Secondary malignant neoplasm of bone; C78.7 Secondary malignant neoplasm of liver and intrahepatic bile duct; F11.20 Opioid dependence, uncomplicated; C61 Malignant neoplasm of prostate; Z86.711 Personal history of pulmonary embolism; G89.29 Other chronic pain; Z79.01 Long term (current) use of anticoagulants; Z96.653 Presence of artificial knee joint, bilateral; Z87.891 Personal history of nicotine dependence; E87.5 Hyperkalemia
CPT/HCPCS: 96374; 97116-GP; 97162-GP; 97165-GO; 97535-GO; A9585; G8978-GP-CL; G8979-GP-CI; G8987-GO-CK; G8988-GO-CI; G8989-GO-CI; J0690; J1170; J1650; J2250; J2405; J2550; J2704; J2765; J3010; J3301

== ENCOUNTER → 2017-02-17 | Outpatient (CLI) | payer OTHER | LOC: FIMAGING 11:08 | PROVIDERS: ATTEND Internal Medicine Hematology & Oncology | DX: C79.51 Secondary malignant neoplasm of bone (principal); C61 Malignant neoplasm of prostate; C78.7 Secondary malignant neoplasm of liver and intrahepatic bile duct | CPT/HCPCS: 78306; A9503 ==

== ENCOUNTER 2017-03-25 13:43 | Inpatient (IN) | payer OTHER, MEDICARE ==
--- NOTE | 2017-03-25 14:11 | CPEKG ---
Heart Rate: 62 RR Interval: 968 P-R Interval: 160 QRSD Interval: 88 QT Interval: 424 QTC Interval: 431 P Randolph: 33 QRS Randolph: -38 T Wave Randolph: 25 EKG Severity - BORDERLINE ECG - EKG Impression: SINUS RHYTHM EKG Impression: PROBABLE LEFT ATRIAL ABNORMALITY EKG Impression: LEFT AXIS DEVIATION Electronically Signed By: Kayode Lee 25-Mar-2017 14:15:23
--- NOTE | 2017-03-25 14:27 | EDPHY ---
H & P Time Seen by Provider: 03/25/17 14:13 HPI/ROS: CHIEF COMPLAINT: Dizziness HISTORY OF PRESENT ILLNESS: The patient is a history of metastatic prostate cancer and is getting a new chemotherapy as of March 16. This is Cabezitaxel, or Jevtana. Starting this past Monday he had 2 episodes of syncope in 2 days. On this past Monday was getting out of a car and walking over the curb and his eyes rolled back and he passed out and was caught by his . The next day on 2 days ago he was walking up stairs and got to the top of the stairs and going into the bedroom turned around and again passed out. His caught him but he abraded his left arm on the door. Monday he was having multiple dizzy spells but only when standing. Today he has not been dizzy but his is not really l leading him sit up or stand. Symptoms never were vertigo or spinning always syncope or near syncope. Moderate to severe in the last [address] Sears took him off dexamethasone yesterday and restarted him on prednisone. REVIEW OF SYSTEMS: Eye: no change in vision ENT: no sore throat Cardiac: No chest pain Pulmonary: no cough or SOB Abdomen: no vomiting, diarrhea, abdominal pain, no black or bloody stools Musculoskeletal: no back pain Skin: Left forearm abrasion Neuro: Has chronic headaches which persists today. Constitutional: no fever : no urinary symptoms A comprehensive 10 point review of systems is otherwise negative aside from elements mentioned in the history of present illness. PAST MEDICAL HISTORY: Includes metastatic prostate cancer and bilateral knee replacements Social history: General Appearance: Alert and conversant, cooperative. Eyes: No scleral icterus. ENT, Mouth: Normal mucous membranes. No external head evidence of trauma, no tongue laceration or abrasion. Respiratory: Normal respiratory effort, breath sounds equal, lungs are clear to auscultation. Cardiovascular: Regular rate and rhythm. Gastrointestinal: Abdomen is soft and non tender. Neurological: Alert and oriented x3. Normally conversant. Face symmetric, normal movement and sensation in all extremities. Skin: Left forearm abrasion Musculoskeletal: No peripheral edema and no joint swelling. No extremity bony tenderness. Psychiatric: Not agitated. Emergency Department course/MDM: EKG does not show high risk features for malignant dysrhythmia. Plan for CBC chemistries and protime, then discussion with his oncologist. Noncontrast head CT for fall and trauma on warfarin. 1455: Hematocrit stable from previous, sodium 132 previous is 135. Head CT per Nitesh shows left subdural with some shift. 1456: Discussed with Renu Maldonado. 1508: Discussed with Harley, he personally reviewed the CT scan, wants MRI brain to evaluate for metastatic or other. His personal request for anticoagulation reversal is 10 mg IV vitamin K, Kcentra if INR is greater than 3 otherwise fresh frozen plasma. 1515: INR 3.7, K Centra ordered. Discussed with the patient potential risks including DVT or PE or other life threatening thrombosis, potential benefit of reversing anticoagulation, and consented. Smoking Status: Former smoker Constitutional: Initial Vital Signs Temperature (C) 36.6 C 03/25/17 13:53 Heart Rate 65 03/25/17 13:53 Respiratory Rate 18 03/25/17 13:53 Blood Pressure 107/64 03/25/17 13:53 O2 Sat (%) 97 03/25/17 13:53 O2 Delivery Mode Room Air Allergies/Adverse Reactions: morphine Allergy (Intermediate, Verified 10/20/16 12:23) HALLUCINATIONS, AGGRESSION Home Medications: Medication Instructions Recorded Hydrocodone/Acetaminophen 1 each PO Q4H PRN #90 tablet 01/16/16 [Hydrocodon-Acetaminophn 10-325] ALPRAZolam [Xanax 0.5 MG (*)] 0.5 mg PO HS 07/08/16 Doxycycline Hyclate [Vibramycin 100 mg PO BID 07/08/16 100 MG (*)] Leuprolide Acetate [Lupron] 1 mg SQ Q90D 07/08/16 Pravastatin Sodium 40 mg PO HS 07/08/16 Venlafaxine Xr [Effexor Xr 75MG 75 mg PO DAILY 07/08/16 (*)] Zometa 1 ea SQ Q30D 07/08/16 Warfarin Sodium [Coumadin 5MG (*)] 5 mg PO DAILY16 10/20/16 Acetaminophen [Tylenol 325mg (*)] 325 - 650 mg PO Q4HRS PRN #0 tab 10/26/16 Sennosides/Docusate Sodium 1 - 2 tab PO BID tab 10/26/16 [Senokot-S] oxyCODONE CR [Oxycontin] 30 mg PO BID #60 tab 10/26/16 Cabezitaxel 03/25/17 Prednisone 03/25/17 Medical Decision Making - Diagnostics EKG Interpretation: 12-lead EKG interpreted by me; official reading is in trace master. My interpretation is sinus rhythm with left atrial abnormality and left axis deviation. Imaging Results: Imaging Impressions Head CT 03/25/17 14:24 Impression: 1. Left frontal/temporal extraaxial hemorrhage, likely subdural, measuring 2.7 cm over the left frontal lobe, with edema in the adjacent left frontal lobe and 6 mm left to right midline shift. 2. Grossly stable calvarial metastases. 3. Additional findings as above. Findings discussed with Kayode Lee, 03/25/2017, at 1454 hours. Differential Diagnosis: Differential diagnosis considered for syncope including but not limited to vasovagal syncope, arrhythmia, dehydration, and blood loss. Consult/Admit Bed Type: [facility] 1500, [facility] 1505 Critical Care Time: Critical care time spent by me, Dr. Lee, exclusively with the care of this patient was 35 minutes, exclusive of PA or [employer] time and exclusive of separate procedures. The organ system at risk was neurologic and I ordered multiple diagnostic studies, intravenous vitamin K and prothrombin complex concentrate, discussion with hospitalist and neurosurgeon; to stabilize the patient and prevent worsening of the patient's condition. - Data Points Laboratory Results: Laboratory Results 03/25/17 14:20 03/25/17 14:20 03/25/17 03/25/17 03/25/17 14:20 14:20 14:20 WBC 5.73 10^3/uL 10^3/uL (3.80-9.50) RBC 3.45 10^6/uL L 10^6/uL (4.40-6.38) Hgb 11.6 g/dL L g/dL (13.7-17.5) Hct 35.0 % L % (40.0-51.0) MCV 101.4 fL H fL (81.5-99.8) MCH 33.6 pg pg (27.9-34.1) MCHC 33.1 g/dL g/dL (32.4-36.7) RDW 13.8 % % (11.5-15.2) Plt Count 129 10^3/uL L 10^3/uL (150-400) MPV 9.5 fL fL (8.7-11.7) Neut % (Auto) 79.7 % H % (39.3-74.2) Lymph % (Auto) 10.5 % L % (15.0-45.0) [place] % (Auto) 8.4 % % (4.5-13.0) Eos % (Auto) 0.2 % L % (0.6-7.6) Baso % (Auto) 0.2 % L % (0.3-1.7) Nucleat RBC Rel Count 0.3 % H % (0.0-0.2) Absolute Neuts (auto) 4.57 10^3/uL 10^3/uL (1.70-6.50) Absolute Lymphs (auto) 0.60 10^3/uL L 10^3/uL (1.00-3.00) Absolute Monos (auto) 0.48 10^3/uL 10^3/uL (0.30-0.80) Absolute Eos (auto) 0.01 10^3/uL L 10^3/uL (0.03-0.40) Absolute Basos (auto) 0.01 10^3/uL L 10^3/uL (0.02-0.10) Absolute Nucleated RBC 0.02 10^3/uL H 10^3/uL (0-0.01) Immature Gran % 1.0 % % (0.0-1.1) Immature Gran # 0.06 10^3/uL 10^3/uL (0.00-0.10) PT 37.5 SEC H SEC (12.0-15.0) INR 3.72 H (0.83-1.16) Sodium 132 mEq/L L mEq/L (134-144) Potassium 4.1 mEq/L mEq/L (3.5-5.2) Chloride 100 mEq/L mEq/L (97-110) Carbon Dioxide 25 mEq/l mEq/l (22-31) Anion Gap 7 mEq/L L mEq/L (8-16) BUN 28 mg/dL H mg/dL (7-23) Creatinine 0.8 mg/dL mg/dL (0.7-1.3) Estimated GFR > 60 Glucose 89 mg/dL mg/dL (70-100) Calcium 8.1 mg/dL L mg/dL (8.5-10.4) Medications Given: Discontinued Medications Phytonadione 10 mg/ Sodium (Chloride) 51 mls @ 102 mls/hr IV ONCE ONE Stop: 03/25/17 15:39 Last Admin: 03/25/17 15:39 Dose: 51 mls Prothrombin Complex Concent ( Human) 2,500 unit/ IV Miscellaneous Supplies 100 mls @ 0 mls/hr IV ONCE ONE; Per Protocol PRN Reason: Protocol Stop: 03/25/17 16:01 Last Admin: 03/25/17 16:18 Dose: 100 mls Departure - Departure Disposition: [facility] Inpatient Acute Clinical Impression: Syncope, Subdural hematoma Condition: Serious
[2017-03-25 14:33] LABS: ABSOLUTE IMMATURE GRANULOCYTES 0.06 10^3/uL (0.00-0.10); ABSOLUTE NRBC COUNT 0.02 10^3/uL (0-0.01); ADD DIFF? NO; ADD MORPH? NO; ADD SCAN? NO; ATYPICAL LYMPHOCYTE FLAG 0 (0-99); FRAGMENT RBC FLAG 0 (0-99); HEMOGLOBIN 11.6 g/dL (13.7-17.5); LEFT SHIFT FLG 10 (0-99); LIPEMIA HEMOLYSIS FLAG 80 (0-99); MEAN CELL HEMOGLOBIN 33.6 pg (27.9-34.1); MEAN CELL HEMOGLOBIN CONCENTR. 33.1 g/dL (32.4-36.7); MEAN CELL VOLUME 101.4 fL (81.5-99.8); MEAN PLATELET VOLUME 9.5 fL (8.7-11.7); NRBC-AUTO% 0.3 % (0.0-0.2); PLATELET CLUMPS FLAG 10 (0-99); PLATELET COUNT 129 10^3/uL (150-400); RED BLOOD CELL COUNT 3.45 10^6/uL (4.40-6.38); RED CELL DISTRIBUTION WIDTH 13.8 % (11.5-15.2)
[2017-03-25 14:50] LABS: ANION GAP 7 mEq/L (8-16); CALCIUM 8.1 mg/dL (8.5-10.4); CARBON DIOXIDE 25 mEq/l (22-31); CHLORIDE 100 mEq/L (97-110); CREATININE 0.8 mg/dL (0.7-1.3); GLOMERULAR FILTRATION RATE > 60; GLUCOSE 89 mg/dL (70-100); POTASSIUM 4.1 mEq/L (3.5-5.2); SODIUM 132 mEq/L (134-144)
[2017-03-25] MEDS ORDERED: PHYTONADIONE 10 MG in NS 50 ML IV ONE (15:10)
[2017-03-25 15:11] LABS: INR 3.72 (0.83-1.16); PROTIME(PATIENT) 37.5 SEC (12.0-15.0)
[2017-03-25] MEDS ORDERED: *PHM DO NOT USE-KCENTRA IV 25 UNITS/KG (INR 2-3.9) PTD MISC SCH (15:15)
--- NOTE | 2017-03-25 15:21 | SOAPPROG ---
SOAP Progress Note Assessment/Plan: Assessment: 71M with known metastatic Prostate cancer. Consulted for left frontal subdural hematoma, but after review of the imaging and his MRI from October, I think this is much more likely to represent metastatic disease. He has 3 separate skull tumors on the MRI from in the left frontal region that correlate with this. Plan: - full consult to follow - MRI brain with and without contrast - may need restaging of his cancer and oncology consult - would give vitamin K 10mg, KCentra if INR supratherapeutic, but I'm not convinced yet that there is bleeding. This may all be metastatic disease. - syncopal workup, if these are indeed brain metastases, these may play a role but unlikly to make him light-headed. 03/25/17 15:16 Objective: Vital Signs Temp Pulse Resp BP Pulse Ox 36.6 C 65 18 107/64 97 03/25/17 13:53 03/25/17 13:53 03/25/17 13:53 03/25/17 13:53 03/25/17 13:53 PT 37.5 SEC (12.0-15.0) H 03/25/17 14:20 INR 3.72 (0.83-1.16) H 03/25/17 14:20 full consult to follow ICD10 Worksheet Patient Problems: Problems Problem Status Onset Subdural hematoma Acute Syncope Acute Bronchitis Acute Intractable back pain Acute Left arm pain Acute Post procedure discomfort Acute Primary osteoarthritis of left knee Acute Primary osteoarthritis of right knee Acute Prostate cancer metastatic to bone Acute Prostate cancer metastatic to liver Acute
[2017-03-25] MEDS ORDERED: HUMAN PROTHROMBIN COMPLX IV ONE (16:00)
[2017-03-25] MEDS ORDERED: ACETAMINOPHEN 325 MG TAB PO PRN (16:46)
[2017-03-25] MEDS ORDERED: LORazepam 0.5 MG TAB PO PRN (16:46)
[2017-03-25] MEDS ORDERED: NS 1,000 ML IV SCH (17:00)
[2017-03-25] MEDS ORDERED: GADOBUTROL 10 ML VIAL IVP ONE (17:07)
--- NOTE | 2017-03-25 18:44 | PDGENHP ---
History and Physical - Chief Complaint recurrent syncope - History of Present Illness 71 yo M with PMH of metastatic prostate cancer (to liver and bone, including skull) on chronic anticoagulation for PE as well as newly on cabazitaxel chemotherapy, presenting with recurrent syncopal events over the last several day and found to have SDH on the left on imaging. Patient and note that he has had 2 true syncopal events, both of which she caught him on as he was going down, without any injury and without hitting his head. He has otherwise not felt particularly poor recently. He has had headache and some decreased po intake since starting chemo but no other real changes. He denies new onset numbness or weakness other than his chronic neuropathic issues. He has not had confusion, changes in vision or hearing. He has not had chest pain or palpitations. He has not had issues with fainting in the past. History Information - Allergies/Home Medication List Allergies/Adverse Reactions: morphine Allergy (Intermediate, Verified 10/20/16 12:23) HALLUCINATIONS, AGGRESSION Home Medications: ALPRAZolam [Xanax 0.5 MG (*)] 1 mg PO HS 07/08/16 [Last Taken 03/24/17] Doxycycline Hyclate [Vibramycin 100 MG (*)] 100 mg PO BID 07/08/16 [Last Taken 03/25/17 08:00] Leuprolide Acetate [Lupron] 1 mg SQ Q90D 07/08/16 [Last Taken 2 Months Ago] Pravastatin Sodium 40 mg PO HS 07/08/16 [Last Taken 03/24/17] Venlafaxine Xr [Effexor Xr 75MG (*)] 75 mg PO DAILY@12 07/08/16 [Last Taken 12:00] Zoledronic Acid [Zometa] 1 ea IV Q30D #0 07/08/16 [Last Taken 03/16/17] Warfarin Sodium [Coumadin 5MG (*)] 5 mg PO DAILY16 10/20/16 [Last Taken 03/24/17 ] Cabazitaxel [Jevtana 60 mg (*)] 1 ea IV Q21D 03/25/17 [Last Taken 03/16/17] Omeprazole [Prilosec 20 mg] 20 mg PO DAILY@12 03/25/17 [Last Taken 03/25/17 12: 00] Sennosides/Docusate Sodium [Senokot-S] 2 tab PO HS 03/25/17 [Last Taken 03/24/17 ] predniSONE 5 mg PO BID 03/25/17 [Last Taken 03/25/17 09:00] I have personally reviewed and updated: family history, medical history, social history, surgical history - Past Medical History cancer (metastatic prostate cancer: to bone/liver s/p xrt, surgery, chemo), DVT , pulmonary embolism Additional medical history: CALVIN on cpap. pathologic rib fractures recently. epidural mets with associated cord compression. 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 B TKA. hernia repair. appy. radioembolization of liver tumor. retinal surgerys. recent cataract surgery. c6-c7 lami/epidural met resection - Family History Positive for: non-pertinent - Social History Smoking Status: Former smoker Alcohol Use: Occasionally Drug Use: None Additional social history: Review of Systems ROS: 10pt was reviewed & negative except for what was stated in HPI & below Physical Exam Temp Pulse Resp BP Pulse Ox 36.8 C 62 15 111/68 97 03/25/17 16:00 03/25/17 16:00 03/25/17 16:00 03/25/17 16:00 03/25/17 16:00 Constitutional: no apparent distress, chronically ill appearing, obese Eyes: PERRL, scleral injection Ears, Nose, Mouth, Throat: moist mucous membranes, hearing normal Cardiovascular: regular rate and rhythym, no murmur, rub, or gallop, edema Respiratory: no respiratory distress, no rales or rhonchi, clear to auscultation Gastrointestinal: normoactive bowel sounds, soft, non-tender abdomen, no palpable masses Genitourinary: no bladder fullness Skin: warm, normal color Musculoskeletal: full muscle strength, no muscle tenderness, normal joint ROM Neurologic: AAOx3, sensation intact bilaterally, CN II-XII Intact Psychiatric: interacting appropriately, not anxious, not encephalopathic Lab Data & Imaging Review 03/25/17 14:20 03/25/17 14:20 WBC 5.73 10^3/uL (3.80-9.50) 03/25/17 14:20 RBC 3.45 10^6/uL (4.40-6.38) L 03/25/17 14:20 Hgb 11.6 g/dL (13.7-17.5) L 03/25/17 14:20 Hct 35.0 % (40.0-51.0) L 03/25/17 14:20 MCV 101.4 fL (81.5-99.8) H 03/25/17 14:20 MCH 33.6 pg (27.9-34.1) 03/25/17 14:20 MCHC 33.1 g/dL (32.4-36.7) 03/25/17 14:20 RDW 13.8 % (11.5-15.2) 03/25/17 14:20 Plt Count 129 10^3/uL (150-400) L 03/25/17 14:20 MPV 9.5 fL (8.7-11.7) 03/25/17 14:20 Neut % (Auto) 79.7 % (39.3-74.2) H 03/25/17 14:20 Lymph % (Auto) 10.5 % (15.0-45.0) L 03/25/17 14:20 [place] % (Auto) 8.4 % (4.5-13.0) 03/25/17 14:20 Eos % (Auto) 0.2 % (0.6-7.6) L 03/25/17 14:20 Baso % (Auto) 0.2 % (0.3-1.7) L 03/25/17 14:20 Nucleat RBC Rel Count 0.3 % (0.0-0.2) H 03/25/17 14:20 Absolute Neuts (auto) 4.57 10^3/uL (1.70-6.50) 03/25/17 14:20 Absolute Lymphs (auto) 0.60 10^3/uL (1.00-3.00) L 03/25/17 14:20 Absolute Monos (auto) 0.48 10^3/uL (0.30-0.80) 03/25/17 14:20 Absolute Eos (auto) 0.01 10^3/uL (0.03-0.40) L 03/25/17 14:20 Absolute Basos (auto) 0.01 10^3/uL (0.02-0.10) L 03/25/17 14:20 Absolute Nucleated RBC 0.02 10^3/uL (0-0.01) H 03/25/17 14:20 Immature Gran % 1.0 % (0.0-1.1) 03/25/17 14:20 Immature Gran # 0.06 10^3/uL (0.00-0.10) 03/25/17 14:20 PT 37.5 SEC (12.0-15.0) H 03/25/17 14:20 INR 3.72 (0.83-1.16) H 03/25/17 14:20 Sodium 132 mEq/L (134-144) L 03/25/17 14:20 Potassium 4.1 mEq/L (3.5-5.2) 03/25/17 14:20 Chloride 100 mEq/L (97-110) 03/25/17 14:20 Carbon Dioxide 25 mEq/l (22-31) 03/25/17 14:20 Anion Gap 7 mEq/L (8-16) L 03/25/17 14:20 BUN 28 mg/dL (7-23) H 03/25/17 14:20 Creatinine 0.8 mg/dL (0.7-1.3) 03/25/17 14:20 Estimated GFR > 60 03/25/17 14:20 Glucose 89 mg/dL (70-100) 03/25/17 14:20 Calcium 8.1 mg/dL (8.5-10.4) L 03/25/17 14:20 Patient ABO/Rh A POSITIVE 03/25/17 15:10 Antibody Screen NEGATIVE 03/25/17 15:10 Visualized and Interpreted imaging results: Yes Interpretation: head CT with left SDH. brain MRI: left sided metastatic lesion with hemorrhage EKG Interpretation: Positive for: normal sinsus rhythm EKG additional interpertation: LAD Assessment & Plan Assessment: Syncope (Acute) Subdural hematoma (Acute) 71 yo M with hx of metastatic prostate cancer presenting s/p recurrent syncopal events with new left sided hemorrhage within soft tissue component of skull metastasis # brain metastasis with associated hemorrhage and small associated intraparenchymal bleed: by MRI, what initially appeared to be SDH now appears to be more likely bleeding within soft tissue metastasis to the skull, there is associated left to right shift in the setting of being on AC. This area has previously undergone XRT as well. He appears to be neurologically intact. NSG has been consulted and is following, oncology also consulted. Monitoring overnight in ICU with serial neuro checks. INR has been reversed with vitamin K and plan to dc AC as below # syncope: recurrent syncopal and near syncopal events preceding admission that per NSG are unlikely to be related to above. Will monitor on tele with serial trops and ecg (initial were wnl), will obtain echo in am as well as carotid US. # hx of PE: this occurred 2 years ago in the post op setting, he was continued on AC given his underlying malignancy and high risk for recurrent clot however now with bleed and intracranial mets, risk outweighs benefit and will dc AC, has been reversed as above # metastatic prostate cancer: with associated pathologic fractures, prior cord compression from epidural mets and liver mets requiring radioembolization. Onc following. # chronic pain with continuous opiate use and dependence: will continue op regimen, pain controlled currently # calvin: continue cpap # dispo: IP status, high risk requiring ICU care Patient new to my care. Old records reviewed and summarized as above. Care plan reviewed with ER doc including plans for ICU admission. Further hx obtained from patients present at bedside.
--- NOTE | 2017-03-25 19:24 | GCON ---
[f rep st] CONSULTATION ONCOLOGY INITIAL VISIT PRIMARY ONCOLOGIST: Dr. Anthony Maldonado. REASON FOR VISIT: Evaluation and management of metastatic prostate cancer. HISTORY OF PRESENT ILLNESS: The patient is a 71-year-old gentleman who was initially diagnosed in 2011 with a stage IIB prostate cancer, [place] 9. He was treated with androgen deprivation therapy and radiation, which the radiation completed October 2012, and hormone therapy June 2014. He then had a rising PSA, and a re-biopsy of his prostate showed that he still had residual disease. In January 2015, he was seen by Dr. Edwards at [facility], who recommended cryotherapy, which was done on February 12, 2015. He then had rising PSA again, and a bone scan was normal, but CT scan showed a 9 cm tumor that was biopsy-confirmed prostate cancer. He was treated with 6 cycles of Taxotere from June 2015 through October 2015 with a partial response. In January 2016, he underwent Y-90 embolization, and a few days after that, he developed acute chest pain and shortness of breath, and diagnosed with a pulmonary embolism. Once he recovered from the Y-90 in February, he was shown to have progressive disease in lymph nodes, so he was started on enzalutamide, and also underwent radiation to T9 through T12 in May 2016. October 2016, he had left shoulder pain from a C7 lesion cord compression and a mass pushing against his brain on the left side. The mass in the neck was resected, and he had radiation to the neck and to the skull. He was switched to abiraterone, and was also treated with Xofigo. However, four months after that, his PSA began to rise, and showed clear evidence of progression. On March 16, 2017, he was started on a cabazitaxel with Neulasta support. He tolerated it reasonably well. He called yesterday with some lightheadedness. He was not having vertigo. It was recommended to come to the office for a check and get some fluids, but he did not want to. He was encouraged to drink more fluids, and to be careful with standing. I talked to his last night, and he seemed to be at least stable. He has a mild chronic headache which did not seem any worse. We cut his dexamethasone, put him back on his lower dose of prednisone, encouraged him to drink fluids, but if he was not getting better, recommend that he go to the emergency room. Today, he was still doing about the same, not getting any better, so she brought him to the emergency room, and while here, a CT scan was performed, which revealed a left frontotemporal extra-axial hemorrhage, likely subdural, with edema in the adjacent left frontal lobe, and some mild midline shift. He is actually still awake and alert, and only minimal headache. He has been evaluated by Neurosurgery, is going to get an MRI brain. He has been started on Kcentra for his elevated INR, and going to go to the intensive care unit for close monitoring. ALLERGIES: He is allergic to morphine. HOME MEDICATIONS: Include Prilosec, alprazolam as needed, Lupron, [place] as needed, doxycycline 100 mg twice daily, Senokot, pravastatin, zoledronic acid every month, warfarin, Effexor, OxyContin 30 mg twice daily, and prednisone 5 mg twice daily. PAST MEDICAL HISTORY: Chronic illnesses include: 1. Prostate cancer, as described above. 2. Pulmonary embolism, January 2016, currently on warfarin. SURGICAL HISTORY: Includes bilateral knee replacement, appendectomy, hernia, eye surgery for detached retina, recent cataract surgery, and a cord compression surgery. SOCIAL HISTORY: He is . Lives with his . Previous smoker. Denies alcohol. FAMILY HISTORY: Only positive for malignancy in his father. REVIEW OF SYSTEMS: Ten-point review of systems performed. Pertinent positives HPI, otherwise negative. PHYSICAL EXAM: VITAL SIGNS: Temperature is 36.8, pulse is 62, blood pressure is 111/68. GENERAL: He is actually a comfortable, well-appearing man in no distress. HEENT: He has some injection of the left eye from his postop cataract surgery, but his extraocular muscles are intact. Pupils equally round. Oral mucosa is unremarkable. LUNGS: Clear. CARDIAC: Regular without murmur. ABDOMEN: Soft, nontender. NEUROLOGICAL: Nonfocal. LABORATORY DATA: CBC: White count is 5700, with an ANC of 4400, hemoglobin is 11.6, platelet count 129,000. INR is 3.7. Chemistries unremarkable. CT as per HPI. MRI is pending. IMPRESSION: 1. Metastatic prostate cancer. 2. Subdural bleed not due to trauma. 3. History of pulmonary embolism, January 2016, on warfarin. PLAN: 1. I agree with reversing the warfarin to stop the bleeding. Since the PE was over a year ago, I do not think we need to emergently put in a filter, but we will need to monitor him. Hopefully, by keeping off blood thinners for awhile, this will stop bleeding, and then we can reassess down the road. If he develops a DVT, then he will have to have a filter placed until the neuro issues have completely resolved. 2. As for the prostate cancer, he has widely metastatic disease, and just started on a new therapy on March 16. He is only about day 9, so he is right about his delmer, but he received Neulasta, and his blood counts currently are fine. We will continue to monitor this while he is in the hospital. 3. As for the cause of the bleed, it is in the area where he had a previous tumor, was irradiated earlier this year. It is possible that he has had a malignancy in there that has bled spontaneously. I agree with the MRI, and we will determine further recommendations based on that information. I appreciate Neurosurgery's assistance. /[id number]/MODL MTDD
[2017-03-25 20:17] LABS: INR 1.15 (0.83-1.16); PROTIME(PATIENT) 14.6 SEC (12.0-15.0)
[2017-03-25] MEDS: HYDROCODONE/APAP 10/325 TAB PO PRN (20:32)
[2017-03-25] MEDS: oxyCODONE CR 30 MG TAB PO SCH (20:33)
[2017-03-25] MEDS ORDERED: ALPRAZolam 0.5 MG TAB PO SCH (21:00)
[2017-03-25] MEDS ORDERED: predniSONE 5 MG TAB PO SCH (21:00)
[2017-03-25] MEDS ORDERED: SENNOSIDES/DOCUSATE SODIUM TAB PO SCH (21:00)
[2017-03-25] MEDS ORDERED: PRAVASTATIN SODIUM 40 MG TAB PO SCH (21:00)
[2017-03-25 21:04] LABS: COLOR YELLOW; LEUKOCYTE ESTERASE,URINE NEGATIVE (NEGATIVE); NITRITE,URINE NEGATIVE (NEGATIVE)
[2017-03-25 21:10] LABS: MUCUS TRACE /lpf (NONE-1+)
--- NOTE | 2017-03-26 00:50 | GCON ---
[f rep st] CONSULTATION NEUROSURGERY CONSULT NOTE DATE OF CONSULTATION: 03/25/2017 The patient was seen evaluated in the ICU at [facility] approximately 7 p.m. on 03/09. HISTORY OF PRESENT ILLNESS: The patient is a 71-year-old male with known widely metastatic prostate cancer who presented after having several near syncopal episodes. He has been on chronic anticoagu lation for pulmonary emboli and about 9 days ago started a new type of chemotherapy drug. He has nova d several intermittent episodes were he has felt a bit lightheaded and had to be helped down because he felt like he was passing out. He has not fallen and has not hit his head, but given the frequen cy of these events, which have just been over the past couple of days, his brought him into the emergency department. In the emergency department, a CT scan of the head was done which reportedly showed a left frontal s ubdural hematoma, and we were called. After my review of the films, I did suggest MRI of the brain, as this did not look like a typical subdural hematoma but looked more like a soft tissue mass in th e epidural space and the left frontal lobe. His MRI was done which does indeed show a soft tissue m ass extending both extracranially and intracranially through the bone on the left frontal region. O n comparison of his MRI scan in October of 2016, this mass is gotten a lot larger but was present in that same location previously. He has had radiation in the area as well. There is some scattered hemorrhage within the mass and there is some spha-mo-nzmhqoxc mass effect and a bit of shift. There is a mild amount of surrounding vasogenic edema within the brain beneath the mass. He really does not have any other symptoms at this time. He denies any headaches, shortness of breath, chest pain, abdominal pain, or other significant symptoms at the moment. REVIEW OF SYSTEMS: A 10-point review is review of systems is negative other than that described abo ve in the HPI. ALLERGIES: Morphine. MEDICATIONS: 1. Xanax. 2. Vibramycin. 3. Lupron. 4. Pravastatin. 5. Effexor. 6. Zometa. 7. Warfarin. 8. Cabazitaxel. 9. Prilosec. 10. Docusate senna. 11. Prednisone. PAST MEDICAL HISTORY: 1. Metastatic prostate cancer. 2. DVT. 3. Pulmonary emboli. 4. Obstructive sleep apnea. 5. Surgery by Dr. Gabriel in October for a spinal metastasis causing radiculopathy. 6. Prostatectomy. 7. Bilateral total knee arthroplasty. 8. Hernia repair. 9. Appendectomy. 10. Recent cataract surgeries. FAMILY HISTORY: Negative for brain tumors. SOCIAL HISTORY: The patient is a former smoker. He drinks occasional social alcohol and is accompa nied in the room with his . PHYSICAL EXAM: VITAL SIGNS: Currently, he has stable and normal vital signs. He is awake, alert, and oriented x3. His pupils are equal, round, reactive to light. His extraocular movements are int act. His face is symmetric. Tongue is midline. Palate is symmetric. NEUROLOGIC: His speech is c lear and fluent with easy repetition and no obvious word-finding difficulties. He has full 5/5 stre ngth of all muscle groups in the upper and lower extremities and no pronator drift. His sensation a ppears to be intact although he does have some residual numbness in the left upper extremity related to his prior spinal surgery and radiculopathy. His deep tendon reflexes are normal. IMAGING REVIEW: See HPI. LABORATORY REVIEW: The white count is 5.7, hemoglobin is 11.6, hematocrit 35.0. Platelet count is 129,000. His INR was initially 3.72 but after KCENTRA and vitamin K is 1.15. His sodium is 132, po tassium 4.1. BUN is 28. Creatinine 0.8. Calcium 8.1. ASSESSMENT AND PLAN: The patient is a 71-year-old man who presented with a few episodes of near syn cope. CT reveals a soft tissue mass in the left frontal region which appears consistent with a bony metastasis from his prostate cancer which was seen on previous imaging in October but is now much l arger. First, I doubt that this lesion has anything to do with his near syncopal events which seem to be more likely related to his chemotherapy or other medications. I did speak with him about this new finding of this mass, and overall he seems to be relatively asymptomatic from this at this poin t. I did discuss the options of surgical resection versus the possibility of repeat radiation or pa lliation. At this moment, I think he would benefit most from surgical resection. However, we will need to get Oncology's opinion regarding his overall disease state and what other options they may h ave. If he were to know that his cancer was spreading and untreatable, he may not wish to have surg payal. We discussed the fact that we will discuss this further over the next day or so. If he should choose for surgery, we likely would plan this toward the middle to end of next week. It would be f ine if he were to be discharged home in the meantime, and we can make plans to do surgery as an outp atient. I will speak with them again tomorrow, and we will see what oncology's thoughts are regardi ng his overall picture and if he needs to be re-staged. I answered all the patient's questions to t he best of my ability and he is happy with this plan. /[id number]/MODL
[2017-03-26 04:24] LABS: % IMMATURE GRANULYOCYTES 1.2 % (0.0-1.1); ABSOLUTE IMMATURE GRANULOCYTES 0.04 10^3/uL (0.00-0.10); ADD DIFF? NO; ADD MORPH? NO; ADD SCAN? NO; ATYPICAL LYMPHOCYTE FLAG 0 (0-99); FRAGMENT RBC FLAG 20 (0-99); HEMATOCRIT 32.5 % (40.0-51.0); HEMOGLOBIN 10.9 g/dL (13.7-17.5); LEFT SHIFT FLG 10 (0-99); LIPEMIA HEMOLYSIS FLAG 80 (0-99); MEAN CELL HEMOGLOBIN CONCENTR. 33.5 g/dL (32.4-36.7); MEAN CELL VOLUME 101.2 fL (81.5-99.8); MEAN PLATELET VOLUME 9.5 fL (8.7-11.7); PLATELET CLUMPS FLAG 10 (0-99); PLATELET COUNT 126 10^3/uL (150-400); RED BLOOD CELL COUNT 3.21 10^6/uL (4.40-6.38)
[2017-03-26] MEDS: HYDROCODONE/APAP 10/325 TAB PO PRN ×2 (04:30→11:14)
[2017-03-26 04:31] LABS: INR 1.07 (0.83-1.16); PROTIME(PATIENT) 13.8 SEC (12.0-15.0)
[2017-03-26 04:38] LABS: ANION GAP 4 mEq/L (8-16); CALCIUM 7.8 mg/dL (8.5-10.4); CARBON DIOXIDE 26 mEq/l (22-31); CHLORIDE 103 mEq/L (97-110); CREATININE 0.8 mg/dL (0.7-1.3); GLOMERULAR FILTRATION RATE > 60; GLUCOSE 83 mg/dL (70-100); MAGNESIUM 2.3 mg/dL (1.6-2.3); POTASSIUM 4.8 mEq/L (3.5-5.2); SODIUM 133 mEq/L (134-144)
[2017-03-26] MEDS ORDERED: predniSONE 5 MG TAB PO SCH (07:00)
[2017-03-26] MEDS: oxyCODONE CR 30 MG TAB PO SCH (08:55)
[2017-03-26] MEDS ORDERED: PANTOPRAZOLE SODIUM 40 MG TAB PO SCH (09:00)
[2017-03-26 09:02] VITALS: TEMP 97.3
--- NOTE | 2017-03-26 09:29 | SOAPPROG ---
SOAP Progress Note Assessment/Plan: Assessment: 71M with known metastatic Prostate cancer. several skull mets known. Left frontal one has now grown with a large intracranial component with some brain compression and mild shift. He is largely asymptomatic from this. Plan: - INR has been fully reversed - will start keppra 750 BID for seizure ppx - syncopal workup, I don't think this is likely related to the intracranial tumor but more likely related to his meds or chemotherapy - I spoke to him about surgery, but we will want to get oncology opinion regarding radiation and what options they have going forward for his systemic disease. - I think it is fine for him to discharge home once oncology satisfied with workup. Depending on their recommendations, I can followup with him in clinic later this week to further discuss surgery and we could schedule this sometime in the next week or two. 03/25/17 15:16 03/26/17 09:26 Subjective: no complaints this morning Objective: Vital Signs Temp Pulse Resp BP Pulse Ox 36.3 C 89 16 116/62 99 03/26/17 08:00 03/26/17 08:00 03/26/17 08:00 03/26/17 08:00 03/26/17 08:00 Laboratory Results 03/26/17 04:11 03/26/17 04:11 03/25/17 03/26/17 03/27/17 05:59 05:59 05:59 Intake Total 790 Output Total 1000 Balance -210 PT 13.8 SEC (12.0-15.0) 03/26/17 04:11 INR 1.07 (0.83-1.16) 03/26/17 04:11 AAOx3, speech clear and fluent, Full strength/sensation, no drift - Pending Discharge Pending Discharge Within 24 Hours: Yes Pending Discharge Within 48 Hours: Yes Pending Discharge Date: 03/27/17 Pending Discharge Time: 11:00 ICD10 Worksheet Patient Problems: Problems Problem Status Onset Subdural hematoma Acute Syncope Acute Bronchitis Acute Intractable back pain Acute Left arm pain Acute Post procedure discomfort Acute Primary osteoarthritis of left knee Acute Primary osteoarthritis of right knee Acute Prostate cancer metastatic to bone Acute Prostate cancer metastatic to liver Acute
--- NOTE | 2017-03-26 10:42 | HOSPPROG ---
Hospitalist Progress Note Assessment/Plan: #Syncope: suspect due to chemo vs. intracranial mass. -negative trop/EKG. No e/o arrhythmia #Metastatic prostate cancer: FU with oncology #Intracranial hemorrhage: coumadin reversed. No neuro deficits. Seizure ppx with Keppra. G #Disp: DC today. See DC summary for full details Subjective: no dizziness with PT today Objective: Vital Signs Temp Pulse Resp BP Pulse Ox 36.3 C 89 16 116/62 99 03/26/17 08:00 03/26/17 08:00 03/26/17 08:00 03/26/17 08:00 03/26/17 08:00 Laboratory Results 03/26/17 04:11 03/26/17 04:11 03/25/17 03/26/17 03/27/17 05:59 05:59 05:59 Intake Total 790 Output Total 1000 Balance -210 PT 13.8 SEC (12.0-15.0) 03/26/17 04:11 INR 1.07 (0.83-1.16) 03/26/17 04:11 - Physical Exam Constitutional: no apparent distress Eyes: PERRL Ears, Nose, Mouth, Throat: moist mucous membranes Cardiovascular: regular rate and rhythym, no murmur, rub, or gallop Respiratory: no respiratory distress, no rales or rhonchi Gastrointestinal: normoactive bowel sounds, soft, non-tender abdomen Genitourinary: no bladder fullness Skin: warm Musculoskeletal: full muscle strength Neurologic: AAOx3, CN II-XII Intact Psychiatric: interacting appropriately ICD10 Worksheet Patient Problems: Problems Problem Status Onset Bronchitis Acute Intractable back pain Acute Left arm pain Acute Post procedure discomfort Acute Primary osteoarthritis of left knee Acute Primary osteoarthritis of right knee Acute Prostate cancer metastatic to bone Acute Prostate cancer metastatic to liver Acute Subdural hematoma Acute Syncope Acute
[2017-03-26] MEDS ORDERED: NON-FORMULARY NEW DRUG (Omeprazole [Prilosec 20 Mg] 20 MG) PO SCH (12:00)
[2017-03-26] MEDS ORDERED: PRAVASTATIN SODIUM 40 MG TAB PO SCH (12:00)
[2017-03-26] MEDS ORDERED: VENLAFAXINE XR 75 MG CAP PO SCH (12:00)
[2017-03-26 12:05] VITALS: BP 124/65; PULSE 77; RESP 17; O2SAT 95
--- NOTE | 2017-03-26 12:59 | SOAPPROG ---
SOAP Progress Note Assessment/Plan: E&M for prostate cancer * Widely metastatic prostate cancer: Day 10 cycle 1 of cabazitaxel with neulasta support. Too early to tell for sure if he is responding. I explained to him and his that his disease is not curable. If cabazitaxel works, it might extend his life for months. If it doesn't work or he stops therapy, his life expectancy would be measured more in weeks. * Intracranial hemorrhage: Due to large met. Will ask xrt to evaluate but may be in same region already irradiated. Dr. Souza is considering surgery. He seems stable off warfarin. * H/O PE 01/2016: Now off warfarin. I didn't not have IVC filter placed but will watch him closely. Will keep him off anticoagulation for now. * Disposition: if cleared by NSGY, ok to go home from oncology standpoint. He is to keep his appt with Dr. Maldonado for tomorrow if he goes home. Subjective: Feeling fine today. Was able to get up with nursing/PT without lightheadedness. No significant headache and no n/v. Objective: Vital Signs Temp Pulse Resp BP Pulse Ox 36.3 C 77 17 124/65 H 95 03/26/17 08:00 03/26/17 12:00 03/26/17 12:00 03/26/17 12:00 03/26/17 12:00 Laboratory Results 03/26/17 04:11 03/26/17 04:11 03/25/17 03/26/17 03/27/17 05:59 05:59 05:59 Intake Total 790 Output Total 1000 Balance -210 PT 13.8 SEC (12.0-15.0) 03/26/17 04:11 INR 1.07 (0.83-1.16) 03/26/17 04:11 MRI Brain Without and With Contrast History: Trauma. On Coumadin therapy. Metastatic prostate cancer. Comparison: CT performed earlier today and MRI from October 2016. Technique: MRI is performed of the brain using a 3 Flores MRI system. Sagittal and axial imaging was obtained pre- and postintravenous contrast, 10 mL Gadavist. Multiplanar reformation was performed on the postcontrast imaging. Findings: There is significant enlargement of the metastatic bone lesion in the left frontal skull which extends into the temporal bone. There is a large soft tissue mass component now intracranially in extraaxial location and superficially along the scalp. This is where the dominant portion of hemorrhage is seen on the CT examination, as hemorrhage is within the soft tissue component. There is heterogeneous enhancement of this mass and involvement of the calvarium. This measures 5.6 x 3.7 cm. There is adjacent mass effect and vasogenic edema in the left frontal lobe. There appears to be a 1 cm foci of intraparenchymal hemorrhage in the adjacent left frontal lobe. There is also extension of the extraaxial soft tissue mass component inferiorly in the anterior left temporal fossa, contiguous with the abnormal temporal bone. The other skull lesions have not significantly changed. The thick dural enhancement, more predominant on the left than the right is similar to the comparison exam. No other evidence of abnormal enhancement. The mass effect in the left frontal lobe is causing mild midline shift, subfalcine anteriorly of 4 mm. Impression: The extraaxial hemorrhage seen on the CT performed earlier today appears to be hemorrhage within a soft tissue mass component of the metastatic lesion to the skull, which has significantly increased in size over the interval. There is a dominant soft tissue component extraaxial in the left frontal lobe, extending into the anterior left temporal fossa. There is adjacent increased abnormal signal and enhancement in the skull and a soft tissue component extracranially along the scalp. This is causing significant mass effect with adjacent vasogenic edema in the left frontal lobe with small amount of midline shift, subfalcine of left to right. There is also probable small foci of intraparenchymal hemorrhage in the adjacent left frontal lobe. Results called and discussed with Osiel Ruano MD on March 25, 2017 at 1822 hours. Dictated By: Cliff Jeffries MD Physical Exam - Physical Exam General Appearance: no apparent distress EENT: PERRL/EOMI Cardiac/Chest: regular rate, rhythm Neuro/Psych: No motor weakness ICD10 Worksheet Patient Problems: Problems Problem Status Onset Subdural hematoma Acute Syncope Acute Bronchitis Acute Intractable back pain Acute Left arm pain Acute Post procedure discomfort Acute Primary osteoarthritis of left knee Acute Primary osteoarthritis of right knee Acute Prostate cancer metastatic to bone Acute Prostate cancer metastatic to liver Acute
--- NOTE | 2017-03-26 14:21 | PDIAF ---
- Diagnosis Diagnosis: intracranial hemorrhage Code Status: Full Code - Medication Management Discharge Medications: Medications to Continue on Transfer Hydrocodone/Acetaminophen [Hydrocodon-Acetaminophn 10-325] 1 each PO Q4H PRN # 90 tablet 01/16/16 [Last Taken 03/25/17 13:30] ALPRAZolam [Xanax 0.5 MG (*)] 1 mg PO HS 07/08/16 [Last Taken 03/24/17] Doxycycline Hyclate [Vibramycin 100 MG (*)] 100 mg PO BID 07/08/16 [Last Taken 03/25/17 08:00] Leuprolide Acetate [Lupron] 1 mg SQ Q90D 07/08/16 [Last Taken 2 Months Ago] Pravastatin Sodium 40 mg PO HS 07/08/16 [Last Taken 03/24/17] Venlafaxine Xr [Effexor Xr 75MG (*)] 75 mg PO DAILY@12 07/08/16 [Last Taken 12:00] Zoledronic Acid [Zometa] 1 ea IV Q30D #0 07/08/16 [Last Taken 03/16/17] oxyCODONE CR [Oxycontin] 30 mg PO BID #60 tab 10/26/16 [Last Taken 03/25/17 08: 00] Cabazitaxel [Jevtana 60 mg (*)] 1 ea IV Q21D 03/25/17 [Last Taken 03/16/17] Omeprazole [Prilosec 20 mg] 20 mg PO DAILY@12 03/25/17 [Last Taken 03/25/17 12: 00] Sennosides/Docusate Sodium [Senokot-S] 2 tab PO HS 03/25/17 [Last Taken 03/24/17 ] predniSONE 5 mg PO BID 03/25/17 [Last Taken 03/25/17 09:00] LEVETIRACETAM [Keppra 750 mg] 750 mg PO BID #60 tab 03/26/17 [Last Taken Unknown ] Discharge Medications: Refer to the Discharge Home Medication list for PRN reason. - Orders Services needed: Home Care, Physical Therapy Home Care Face to Face: I certify that this patient was under my care and that I had the required [id number] encounter meeting the encounter requirements on the discharge day. My findings support the fact that the patient is homebound as defined in CMS Chapter 7 Medicare Benefits Manual 30.1.1, The condition of the patient is such that there exists a normal inability to leave home and consequently, leaving home would require a considerable and taxing effort. Diet Recommendation: no restrictions on diet Diet Texture: Regular Texture Diet - Follow Up Care Current Providers and Referrals: Anthony Maldonado MD [Medical Doctor] - As per Instructions Osiel Chino DO [Primary Care Provider] - As per Instructions
--- NOTE | 2017-03-26 15:02 | GDS ---
[f rep st] DISCHARGE SUMMARY DISCHARGE DIAGNOSES: 1. Syncope. 2. Dizziness. 3. Metastatic prostate cancer. 4. Intracranial hemorrhage. 5. History of pulmonary embolism. Presenting with recurrent syncopal events over the last several days. CT revealed subdural hematoma . Per his , he has had 2 true syncopal episodes lasting a few seconds, one in which she caught him as he was going down. He has had a headache and some decreased p.o. intake since starting chemo therapy but no other changes. He denies any chest pain, shortness of breath, dizziness, or palpitat ions prior to syncopal episodes. HOSPITAL COURSE BY PROBLEMS: 1. Syncope. Differential includes dehydration, new chemotherapy versus cardiac. There is no evide nce of ischemia on EKG or troponin. No evidence of arrhythmia. The patient denied any prodromal sy mptoms. Carotid Dopplers were negative for stenosis. 2. Intracranial hemorrhage. MRI showed enlargement of a metastatic bone lesion in the left frontal skull which extends into the temporal bone. There was a large soft tissue mass component that is n ow intracranial. The hemorrhage appears to be within the soft tissue mass. The patient's INR was r eversed, given he was on anticoagulation for a pulmonary embolism. He has no neurologic deficits. Dr. Souza with Neurosurgery saw the patient, and the patient can consider surgical resection of this mass. Oncology will speak with Radiation Oncology. Given this is an area that was previously irra diated, could consider this as an option. Patient started on Keppra for seizure prophylaxis. Couma din discontinued. 3. History of pulmonary embolism. This was provoked in the setting of perioperatively. His antico agulation was continued, given his underlying malignancy and recurrent clot. Given new mass and ble ed, this will be discontinued. Still considered high risk, so consider IVC filter placement. We wi ll defer to the primary oncologist. 4. Metastatic prostate cancer. Extensive pathologic fractures, prior cord compression, and liver m etastases. The patient will follow up with his primary oncologist, Dr. Maldonado, tomorrow. Per Dr. Sears today, patient to continue his prednisone rather than dexamethasone. 5. Chronic pain with chronic opioid dependence. Resume home medications. Per patient and family, no evidence of opioid toxicity. Recommend a bowel regimen. 6. CALVIN. Continue CPAP. DISPOSITION: The patient is stable for discharge. FOLLOWUP: 1. Dr. Maldonado. 2. Dr. Souza. /[id number]/MODL
[2017-03-26] MEDS ORDERED: levETIRAcetam 500 MG TAB PO SCH (21:00)
== END 2017-03-26 14:42 | disposition home health service (06) | DRG 54 ==
LOC: F2N 17:38
PROVIDERS: ADMIT Neurological Surgery; ATTEND Internal Medicine
PROC: 30283B1 Transfusion of Nonautologous 4-Factor Prothrombin Complex Concentrate into Vein, Percutaneous Approach (ICD-10-PCS; principal; 2017-03-25)
DX: C79.31 Secondary malignant neoplasm of brain (principal); I62.00 Nontraumatic subdural hemorrhage, unspecified; C78.7 Secondary malignant neoplasm of liver and intrahepatic bile duct; C79.51 Secondary malignant neoplasm of bone; R55 Syncope and collapse; G89.29 Other chronic pain; F11.20 Opioid dependence, uncomplicated; G47.33 Obstructive sleep apnea (adult) (pediatric); Z86.711 Personal history of pulmonary embolism; Z85.46 Personal history of malignant neoplasm of prostate
CPT/HCPCS: 92523-GN; 96365; 97162-GP; 97166-GO; A9585; C9132; J3430

== ENCOUNTER 2017-04-04 11:15 | Inpatient (IN) | payer OTHER, MEDICARE ==
[2017-04-04 12:43] LABS: % IMMATURE GRANULYOCYTES 2.8 % (0.0-1.1); ABSOLUTE NRBC COUNT 0.02 10^3/uL (0-0.01); ADD DIFF? NO; ADD MORPH? NO; ADD SCAN? NO; ATYPICAL LYMPHOCYTE FLAG 10 (0-99); FRAGMENT RBC FLAG 0 (0-99); HEMOGLOBIN 12.8 g/dL (13.7-17.5); LEFT SHIFT FLG 40 (0-99); LIPEMIA HEMOLYSIS FLAG 80 (0-99); MEAN CELL HEMOGLOBIN 34.1 pg (27.9-34.1); MEAN CELL HEMOGLOBIN CONCENTR. 33.7 g/dL (32.4-36.7); MEAN CELL VOLUME 101.3 fL (81.5-99.8); MEAN PLATELET VOLUME 8.7 fL (8.7-11.7); NRBC-AUTO% 0.3 % (0.0-0.2); PLATELET CLUMPS FLAG 0 (0-99); PLATELET COUNT 110 10^3/uL (150-400); RED BLOOD CELL COUNT 3.75 10^6/uL (4.40-6.38); RED CELL DISTRIBUTION WIDTH 14.1 % (11.5-15.2)
[2017-04-04 12:51] LABS: ANION GAP 7 mEq/L (8-16); CALCIUM 8.7 mg/dL (8.5-10.4); CARBON DIOXIDE 29 mEq/l (22-31); CHLORIDE 95 mEq/L (97-110); CREATININE 0.9 mg/dL (0.7-1.3); GLOMERULAR FILTRATION RATE > 60; GLUCOSE 108 mg/dL (70-100); POTASSIUM 4.6 mEq/L (3.5-5.2); SODIUM 131 mEq/L (134-144)
[2017-04-04 13:02] LABS: TROPONIN I < 0.012 ng/mL (0-0.034)
[2017-04-04 13:04] LABS: INR 0.92 (0.83-1.16); PROTIME(PATIENT) 12.3 SEC (12.0-15.0)
[2017-04-04 13:05] LABS: APTT 24.5 SEC (23.0-38.0)
--- NOTE | 2017-04-04 13:15 | CPEKG ---
Heart Rate: 63 RR Interval: 952 P-R Interval: 156 QRSD Interval: 88 QT Interval: 424 QTC Interval: 435 P Ericson: 34 QRS Ericson: -36 T Wave Ericson: 35 EKG Severity - BORDERLINE ECG - EKG Impression: SINUS RHYTHM EKG Impression: PROBABLE LEFT ATRIAL ABNORMALITY EKG Impression: LEFT AXIS DEVIATION Electronically Signed By: Dev Amado 04-Apr-2017 20:46:08
--- NOTE | 2017-04-04 13:54 | EDPHY ---
H & P Stated Complaint: seizure today HPI/ROS: CHIEF COMPLAINT: Seizure versus syncope HISTORY OF PRESENT ILLNESS: Patient presents today with family with reports of seizure versus syncope. He has a history of metastatic prostate cancer. He was here March 25 and admitted with diagnosis of left temporal mass and surrounding x-ray actual hemorrhage. He was taken off his Coumadin at that time and discharged home on seizure prophylaxis. He has been seen by Oncology with the plan for chemotherapy to start this Monday and then radiation therapy next week. He has had multiple bouts of syncope with home health. However today, home health nurse reported that he had an episode where he became unconscious, his eyes deviated to the right. The home health nurse lowered him to the ground. He was unconscious for nearly 2 minutes without any description of any convulsions, movement, incontinence or injury to the mouth or tongue. It is uncertain exactly what happened as the family members here were not present for the event. He does complain of a mild headache that is not unusual for him. He also complains of left shoulder pain that is new for him. No chest pain. No other associated complaints or modifying factors. REVIEW OF SYSTEMS: Ten systems reviewed and are negative unless otherwise noted in the HPI PAST MEDICAL HISTORY: Significant medical history as reviewed. Of note is the metastatic prostate cancer SOCIAL HISTORY: Lives at home with his family and currently has home health nurse FAMILY HISTORY: Noncontributory EXAMINATION General Appearance: Alert, no distress Head: normocephalic, atraumatic. No Damon sign. No raccoon eyes. Eyes: Pupils equal and round, no conjunctival pallor or injection. There is mild conjunctivae edema to the left. No nystagmus or dysconjugate gaze. ENT, Mouth: Mucous membranes moist. Uvula midline. Neck: Normal inspection, supple, non-tender Respiratory: Lungs are clear to auscultation Cardiovascular: Regular rate and rhythm. No murmur. Pulses intact distally. Gastrointestinal: Abdomen is soft and nontender Back: non-tender, no bony abnormalities Neurological: GCS 15. A&O, strength is 5/5 in all 4 limbs. Dysmetria noted bilaterally. No pronator drift. Skin: Warm and dry, no rash Extremities: Nontender, no pedal edema Psychiatric: Mood and affect normal DIFFERENTIAL DIAGNOSES: Including but not limited to intracranial mass, hemorrhage, edema, seizure, syncope, ACS, dehydration MDM: 11:55 a.m. Syncope versus seizure in a patient with metastatic prostate cancer. He has had syncopal episodes of late, but today was longer in duration more worrisome to the family. He has no complaints of chest pain. He does have left shoulder pain. I have ordered EKG, chest x-ray. I have requested the CT scan of the head be performed stat, as soon as possible given his scenario. 12:30 p.m. Still awaiting the CT scan of the head. He remains comfortable in no acute distress without seizure-like activity. 1:00 p.m. Laboratory studies thus far unremarkable given the patient's scenario without significant change from baseline. CT scan of the head is still pending. 1:40 p.m. Case discussed with radiologist Dr. Healy. He notes that the mass in the left temporal lobe may have enlarged since previous scan on March 25. There may be more edema but the midline shift is the same. There is some blood around the mass. No other acute findings. I have re-evaluated the patient. He remains comfortable in no acute distress. No seizure-like activity here. I suspect this more likely syncope than seizure. I will proceed with admission to the hospital for further care 1:55 p.m. I have discussed case with Dr. Levin. he will admit the patient to SDU bed. He is admitted in stable condition. I have seen no seizure-like activity thus far in the emergency department. SUPERVISION: Shared visit with Dr. Ruano Source: Patient, Family, Old records Exam Limitations: No limitations - Personal History Current Tetanus Diphtheria and Acellular Pertussis (TDAP): Yes - Medical/Surgical History Hx Asthma: No Hx Chronic Respiratory Disease: No Hx Diabetes: No Hx Cardiac Disease: No Hx Renal Disease: No Hx Cirrhosis: No Hx Alcoholism: No Hx HIV/AIDS: No Hx Splenectomy or Spleen Trauma: No Other PMH: Prostate cancer - Metastatic including bony Mets and liver mets., knee replacements - Social History Smoking Status: Former smoker Constitutional: Initial Vital Signs Temperature (C) 98.4 F 04/04/17 11:20 Heart Rate 65 04/04/17 11:20 Respiratory Rate 14 04/04/17 11:20 Blood Pressure 127/79 H 04/04/17 11:20 O2 Sat (%) 97 04/04/17 11:20 O2 Delivery Mode Room Air Allergies/Adverse Reactions: morphine Allergy (Intermediate, Verified 10/20/16 12:23) HALLUCINATIONS, AGGRESSION Home Medications: Medication Instructions Recorded Hydrocodone/Acetaminophen 1 each PO Q4H PRN #90 tablet 01/16/16 [Hydrocodon-Acetaminophn 10-325] ALPRAZolam [Xanax 0.5 MG (*)] 1 mg PO HS 07/08/16 Doxycycline Hyclate [Vibramycin 100 mg PO BID 07/08/16 100 MG (*)] Leuprolide Acetate [Lupron] 1 mg SQ Q90D 07/08/16 Pravastatin Sodium 40 mg PO HS 07/08/16 Venlafaxine Xr [Effexor Xr 75MG 75 mg PO DAILY@12 07/08/16 (*)] Zoledronic Acid [Zometa] 1 ea IV Q30D #0 07/08/16 oxyCODONE CR [Oxycontin] 30 mg PO BID #60 tab 10/26/16 Cabazitaxel [Jevtana 60 mg (*)] 1 ea IV Q21D 03/25/17 Omeprazole [Prilosec 20 mg] 20 mg PO DAILY@12 03/25/17 Sennosides/Docusate Sodium 2 tab PO HS 03/25/17 [Senokot-S] predniSONE 5 mg PO BID 03/25/17 LEVETIRACETAM [Keppra 750 mg] 750 mg PO BID #60 tab 03/26/17 Keppra 04/04/17 Medical Decision Making - Diagnostics Imaging Results: Imaging Impressions Chest X-Ray 04/04/17 11:53 Impression: Negative for fracture. Portable AP Upright Chest on April 04, 2017 at 1216 hours Clinical Indications: Trauma; the patient had a syncopal episode earlier today. Comparison: Comparison was made to prior whole body bone scan of February 17, 2017. Findings: Heart size and pulmonary vascularity are normal allowing for the portable technique. No focal pulmonary consolidation is identified. Minimal left basilar opacity is suspected. There appears to be sclerosis and the expansile osseous lesion of the left fourth rib and there is also sclerosis of several lower left ribs. The bone scan demonstrated extensive osseous metastatic disease involving ribs bilaterally. Also, there is sclerosis and degenerative change noted involving the right shoulder, which may be a combination of degeneration and metastatic disease. Impression: 1. Chest negative for acute cardiopulmonary abnormality. 2. Osseous metastatic disease was more fully detailed on the recent bone scan. Shoulder X-Ray 04/04/17 11:54 Impression: Negative for fracture. Portable AP Upright Chest on April 04, 2017 at 1216 hours Clinical Indications: Trauma; the patient had a syncopal episode earlier today. Comparison: Comparison was made to prior whole body bone scan of February 17, 2017. Findings: Heart size and pulmonary vascularity are normal allowing for the portable technique. No focal pulmonary consolidation is identified. Minimal left basilar opacity is suspected. There appears to be sclerosis and the expansile osseous lesion of the left fourth rib and there is also sclerosis of several lower left ribs. The bone scan demonstrated extensive osseous metastatic disease involving ribs bilaterally. Also, there is sclerosis and degenerative change noted involving the right shoulder, which may be a combination of degeneration and metastatic disease. Impression: 1. Chest negative for acute cardiopulmonary abnormality. 2. Osseous metastatic disease was more fully detailed on the recent bone scan. - Data Points Laboratory Results: Laboratory Results 04/04/17 12:35 04/04/17 12:35 04/04/17 04/04/17 04/04/17 12:35 12:35 12:35 WBC 7.14 10^3/uL 10^3/uL (3.80-9.50) RBC 3.75 10^6/uL L 10^6/uL (4.40-6.38) Hgb 12.8 g/dL L g/dL (13.7-17.5) Hct 38.0 % L % (40.0-51.0) MCV 101.3 fL H fL (81.5-99.8) MCH 34.1 pg pg (27.9-34.1) MCHC 33.7 g/dL g/dL (32.4-36.7) RDW 14.1 % % (11.5-15.2) Plt Count 110 10^3/uL L 10^3/uL (150-400) MPV 8.7 fL fL (8.7-11.7) Neut % (Auto) 83.3 % H % (39.3-74.2) Lymph % (Auto) 6.7 % L % (15.0-45.0) [place] % (Auto) 7.1 % % (4.5-13.0) Eos % (Auto) 0.0 % L % (0.6-7.6) Baso % (Auto) 0.1 % L % (0.3-1.7) Nucleat RBC Rel Count 0.3 % H % (0.0-0.2) Absolute Neuts (auto) 5.94 10^3/uL 10^3/uL (1.70-6.50) Absolute Lymphs (auto) 0.48 10^3/uL L 10^3/uL (1.00-3.00) Absolute Monos (auto) 0.51 10^3/uL 10^3/uL (0.30-0.80) Absolute Eos (auto) 0.00 10^3/uL L 10^3/uL (0.03-0.40) Absolute Basos (auto) 0.01 10^3/uL L 10^3/uL (0.02-0.10) Absolute Nucleated RBC 0.02 10^3/uL H 10^3/uL (0-0.01) Immature Gran % 2.8 % H % (0.0-1.1) Immature Gran # 0.20 10^3/uL H 10^3/uL (0.00-0.10) PT 12.3 SEC SEC (12.0-15.0) INR 0.92 (0.83-1.16) APTT 24.5 SEC SEC (23.0-38.0) Sodium 131 mEq/L L mEq/L (134-144) Potassium 4.6 mEq/L mEq/L (3.5-5.2) Chloride 95 mEq/L L mEq/L (97-110) Carbon Dioxide 29 mEq/l mEq/l (22-31) Anion Gap 7 mEq/L L mEq/L (8-16) BUN 32 mg/dL H mg/dL (7-23) Creatinine 0.9 mg/dL mg/dL (0.7-1.3) Estimated GFR > 60 Glucose 108 mg/dL H mg/dL (70-100) Calcium 8.7 mg/dL mg/dL (8.5-10.4) Troponin I < 0.012 ng/mL ng/mL (0-0.034) Departure - Departure Disposition: [facility] Clinical Impression: Mass of left temporal lobe, Cerebral edema Syncope Qualifiers: Syncope type: unspecified Qualified Code(s): R55 - Syncope and collapse Condition: Good Referrals: Osiel Chino DO [Primary Care Provider] - As per Instructions
[2017-04-04] MEDS ORDERED: ACETAMINOPHEN 325 MG TAB PO PRN (14:36)
[2017-04-04] MEDS ORDERED: ONDANSETRON 4 MG/2 ML VIAL IVP PRN (14:36)
[2017-04-04] MEDS ORDERED: ONDANSETRON DISINTEGRATING 4 MG TAB PO PRN (14:36)
[2017-04-04 15:35] LABS: MAGNESIUM 2.3 mg/dL (1.6-2.3)
--- NOTE | 2017-04-04 16:01 | GHP ---
[f rep st] HISTORY AND PHYSICAL DATE OF ADMISSION: 04/04/2017 CHIEF COMPLAINT: Syncope. HISTORY OF PRESENT ILLNESS: This is a 71-year-old male with a history of prostate cancer with osseo us as well as brain metastatic disease, who presents with syncope. Notably, he was admitted here, d ischarged about 9 days ago for the same. At that point, it was unclear exactly what the etiology of his syncope was. Seizures were considered. He was placed on Keppra. Carotid ultrasound was negat layo for any stenosis. He was monitored on telemetry without any evidence of arrhythmias. EKG was n onischemic. Troponins were negative. It was felt to be potentially cardiac in nature versus primar y neurologic in nature. He was discharged, has had 4 episodes of syncope, today lasted the longest. He was with his home nurse at the time, who caught him. He had no prodrome, no chest pain, shortn ess of breath, palpitations. He completely lost consciousness. Per his nurse, his eyes rolled back and deviated to the right. There were no tonic or clonic movements. He had no tongue biting or lo ss of bowel or bladder. He was maybe slightly confused after this event. PAST MEDICAL/SURGICAL HISTORY: 1. Metastatic prostate cancer. 2. Recent intracranial hemorrhage due to intracranial and osseous metastatic disease. 3. PE in February of 2016, currently off anticoagulation after most recent intracranial hemorrhage. 4. Chronic pain, on continuous narcotics. 5. Obstructive sleep apnea. MEDICATIONS: Please see medication reconciliation. ALLERGIES: Morphine. SOCIAL HISTORY: He is a former smoker. He occasionally drinks alcohol. He is . FAMILY HISTORY: Non-pertinent. REVIEW OF SYSTEMS: 10-point review of systems is conducted and is negative except per HPI. PHYSICAL EXAMINATION: VITAL SIGNS: Blood pressure 127/79, heart rate 65, respiration rate 14, satu rating 97% on room air. Temperature is 36.9. GENERAL: The patient is a pleasant man who is restin g comfortably, in no acute distress. HEENT: Shows him to have mild right-sided conjunctival inject ion. CARDIOVASCULAR: Regular rate and rhythm. No murmurs, rubs, or gallops. PULMONARY: Lungs cl ear to auscultation bilaterally. ABDOMEN: Soft, nontender, nondistended. SKIN: No rash. : No Lucio. NEUROLOGIC: Shows him to be alert and oriented x3. He is moving all extremities. PSYCHIA TRIC: Normal mood and affect. LABORATORIES: CBC shows hemoglobin 12.8, platelets of 110. INR is 0.92. Sodium is 131. DATA: 1. I discussed this with Eric Gilbert in the emergency department. We will admit to step-down unit . 2. I reviewed his shoulder x-ray. This is negative for any acute abnormality. 3. His head CT shows osseous metastatic disease, left frontal cortical hemorrhagic metastases, stab le midline shift at 7 mm, small petechial hemorrhages. 4. Chest x-ray, which I personally viewed and interpreted, shows normal heart size, nothing acute. 5. EKG shows left axis deviation, sinus rhythm, nothing acutely ischemic. IMPRESSION AND PLAN: A 71-year-old man with recurrent syncope. 1. Syncope: Differential includes primary neurologic (seizure, intracranial pressure), cardiac, me tabolic. I have asked Neurology as well as Neurosurgery to see him regarding these episodes, as wel l as his intracranial disease. We will perform basic cardiac workup for now, including telemetry mo nitoring, trend troponins, check echocardiogram. I will get a full metabolic panel. He is mildly h yponatremic, though I do not think this accounts for his syncope. 2. Metastatic prostate cancer with intracranial metastases: He is currently on cabazitaxel. We wi ll consult Oncology. Plan was chemotherapy and radiation for now. We will consult Dr. Guo given mild increase in the hemorrhagic size. 3. Pulmonary embolism in February of 2016: Currently off anticoagulation. I do not think recurrent pul monary emboli account for syncope as he is not hypoxic, not tachycardic, and recovers quickly from t hese. There was some consideration to an inferior vena cava filter given his high risk of a recurre nt clot. This has been deferred to his primary oncologist. 4. Chronic pain on continuous narcotics: Narcotics certainly may be part of the issue here. We wi ll continue these for now. 5. Obstructive sleep apnea. /[id number]/MODL
--- NOTE | 2017-04-04 16:08 | ECHO ---
[id number] + + [address] : : [place] [address] : : [phone] + + Adult Echocardiographic Report + --------+ :Name: MARIANELA QUEZADA Date: 04/04/2017 03:27 PM : : Hospital Admission Number: [id number] Locjuany tion: ER: :: 1945 Gender: Male Height: 70 i n : :Age: 71 yrs Race: WH Weight: 236 lb : :Reason For Study: Syncope : : BSA: 2.2 met ers2 : + --------+ MMode/2D Measurements \T\ Calculations IVSd: 1.3 cm LVIDd: 4.4 cm FS: 34.9 % Ao root diam: LVPWd: 1.1 cm LVIDs: 2.8 cm EDV(Teich): 3.8 cm 85.8 ml LA dimension: ESV(Teich): 4.5 cm 30.6 ml EF(Teich): 64.3 % LVLd ap4: 8.6 cm SV(MOD-sp4): EDV(MOD-sp4): 67.0 ml 88.0 ml LVLs ap4: 6.4 cm ESV(MOD-sp4): 21.0 ml EF(MOD-sp4): 76.1 % Normal Measurement Values: + + :LVIDd (3.5-5.7cm) IVSd (0.6-1.1cm) LVPWd (0.6-1.1cm) Aortic Root (2.0-3.7cm)Left Atrium (1.5-4.0cm): :LV Vol(d) (76-115ml) LV Vol(s) (29-48ml) Ejec Fraction (50-65%)PV Paulo (0.6- 1.2m/s) TV Paulo (0.4-1.0m/s) : :MV E Paulo (0.8-1.0m/s)MV A Paulo (0.3-1.0m/s)LVOT Paulo (0.7-1.2m/s) Asc Ao Paulo ( 0.9-1.8m/s) : + + Doppler Measurements \T\ Calculations MV E max paulo: 45.4 cm/sec Ao V2 max: 147.0 cm/sec MV A max paulo: 78.5 cm/sec Ao max P.6 mmHg MV E/A: 0.58 Left Ventricle The left ventricle is normal in size. There is normal left ventricular wall thickness. Left ventricular systolic function is normal. Ejection Fraction = 70-75%. There is Doppler evidence for diastolic dysfunction. No regional wall motion abnormalities noted. Right Ventricle The right ventricle is normal in size and function. Atria The left atrial size is normal. Right atrial size is normal. The interatrial septum is intact with no evidence for an atrial septal defect. Mitral Valve The mitral valve is normal in structure and function. There is no evidence of mitral valve prolapse. There is no mitral valve stenosis. There is trace mitral regurgitation. Tricuspid Valve Normal tricuspid valve. There is mild tricuspid regurgitation. Aortic Valve The aortic valve is trileaflet. The aortic valve opens well. There is no aortic stenosis. There is no aortic insufficiency. Pulmonic Valve The pulmonic valve is normal in structure and function. There is no pulmonic valvular regurgitation. Great Vessels The aortic root is normal size. Pericardium/Pleural There is no pericardial effusion. Conclusion A complete two-dimensional transthoracic echocardiogram was performed (2D, M-mode, Doppler and color flow Doppler). Left ventricular systolic function is normal. Ejection Fraction = 70-75%. There is trace mitral regurgitation. There is mild tricuspid regurgitation. There is Doppler evidence for diastolic dysfunction. Final Reading Physician: Nely Hill signed on 04/04/2017 04:07 PM Ordering Physician: Kevin Levin Performed By: Nathalie Copeland RDCS
[2017-04-04 19:08] LABS: TROPONIN I < 0.012 ng/mL (0-0.034)
[2017-04-04] MEDS: ALPRAZolam 0.5 MG TAB PO SCH (20:55)
[2017-04-04] MEDS: PRAVASTATIN SODIUM 40 MG TAB PO SCH (20:55)
[2017-04-04] MEDS: levETIRAcetam 250 MG TAB PO SCH (20:55)
[2017-04-04] MEDS: DOXYCYCLINE HYCLATE 100 MG CAP/TAB PO SCH (20:55)
[2017-04-04] MEDS: oxyCODONE CR 30 MG TAB PO SCH (20:55)
[2017-04-04] MEDS: HYDROCODONE/APAP 10/325 TAB PO PRN (20:56)
[2017-04-04] MEDS: SENNOSIDES/DOCUSATE SODIUM TAB PO SCH (20:56)
[2017-04-04] MEDS ORDERED: LEVETIRACETAM 750 MG PO SCH (21:00)
[2017-04-05] MEDS: HYDROCODONE/APAP 10/325 TAB PO PRN ×4 (02:57→15:02)
[2017-04-05 05:47] LABS: ABSOLUTE IMMATURE GRANULOCYTES 0.15 10^3/uL (0.00-0.10); ABSOLUTE NRBC COUNT 0.02 10^3/uL (0-0.01); ADD DIFF? NO; ADD MORPH? NO; ADD SCAN? NO; ATYPICAL LYMPHOCYTE FLAG 0 (0-99); FRAGMENT RBC FLAG 0 (0-99); HEMOGLOBIN 11.6 g/dL (13.7-17.5); LEFT SHIFT FLG 30 (0-99); LIPEMIA HEMOLYSIS FLAG 90 (0-99); MEAN CELL HEMOGLOBIN CONCENTR. 34.1 g/dL (32.4-36.7); MEAN CELL VOLUME 99.7 fL (81.5-99.8); MEAN PLATELET VOLUME 9.2 fL (8.7-11.7); NRBC-AUTO% 0.4 % (0.0-0.2); PLATELET CLUMPS FLAG 0 (0-99); PLATELET COUNT 101 10^3/uL (150-400); RED BLOOD CELL COUNT 3.41 10^6/uL (4.40-6.38); RED CELL DISTRIBUTION WIDTH 14.3 % (11.5-15.2)
[2017-04-05 06:05] LABS: ALANINE AMINOTRANSFERASE 58 IU/L (21-72); ALBUMIN 3.1 g/dL (3.5-5.0); ALKALINE PHOSPHATASE 62 IU/L (38-126); ANION GAP 5 mEq/L (8-16); ASPARTATE AMINOTRANSFERASE 75 IU/L (17-59); BILIRUBIN,TOTAL 0.8 mg/dL (0.1-1.4); CALCIUM 8.2 mg/dL (8.5-10.4); CARBON DIOXIDE 25 mEq/l (22-31); CHLORIDE 100 mEq/L (97-110); CREATININE 0.8 mg/dL (0.7-1.3); GLOMERULAR FILTRATION RATE > 60; GLUCOSE 85 mg/dL (70-100); POTASSIUM 4.5 mEq/L (3.5-5.2); SODIUM 130 mEq/L (134-144); TOTAL PROTEIN 5.2 g/dL (6.3-8.2)
[2017-04-05] MEDS ORDERED: NON-FORMULARY NEW DRUG (Omeprazole [Omeprazole] 20 MG) PO SCH (09:00)
[2017-04-05] MEDS: oxyCODONE CR 30 MG TAB PO SCH ×2 (09:25→21:50)
[2017-04-05] MEDS: PANTOPRAZOLE SODIUM 40 MG TAB PO SCH (09:25)
[2017-04-05] MEDS: levETIRAcetam 250 MG TAB PO SCH ×2 (09:25→21:45)
--- NOTE | 2017-04-05 10:55 | PDCONSULT ---
[facility] Note: HOSPITAL NEUROLOGY CONSULT REQUESTING: Kevin Levin MD REASON: syncope HPI: This is a 71 year old man with a history of metastatic prostate cancer who was admitted for recurrent syncope. He has a known left frontal calvarial metastatic lesion with intracranial extension and hemorrhage resulting in mass effect. He is currently being followed by oncology and neurosurgery. He was admitted 03/25-03/26 with syncope/presyncope, which is when his intracranial disease was found. He had cardiac screening, which was unremarkable. He is now here again for a syncopal episode. He states on the day of admission he was sitting in his living room. His home health aide was present. He got up from his chair to go chart picker his dog. He took a couple steps after getting up and abruptly loss consciousness. His health aide reported he lost postural tone , and the aide was able to catch him. He reports being unconscious for 1-2 minutes. He regained awareness and had his faculties about him, that is to say , he had no postictal confusion. No adventitial movements, tongue bite or incontinence with this episode. He notes the episode occurred abruptly without warning or prodrome, though, in the past he has experienced episodic lightheadedness. He has had a low grade headache for several weeks, but no change this past week. No nausea/vomiting. No visual disturbances, including diplopia or vision loss. He has no change in headache or any new symptoms with Valsalva-like maneuvers. Between syncopal episodes, he is not having any change in his LOC. No speech/language changes. ROS: As per the HPI, otherwise a complete 12 point ROS was performed and is negative ALLERGIES AND MEDS: As recorded in the EMR - reviewed and reconciled PFSH: As per the intake H&P by Dr. Levin from yesterday EXAM: VS reviewed in EMR GEN: WDWN laying in NAD HEENT: NCAT, sclera anicteric, conjunctiva not injected, MMM, oropharynx clear, no scalp tenderness NECK: supple, nontender, no meningismus CV: RRR s1 s2 wo m/r/c/g. Carotid pulses 2+ wo bruit NEURO: MS: awake, alert, oriented to all spheres. Speech nondysarthric. No language disturbance. Follows commands. Attends to both sides. Recent/remote memory grossly intact. Mood euthymic. Good fund of knowledge. CN: pupils 4mm round and reactive. Fundi with sharp discs. VFF. Primary gaze centered. Full ocular motility. Facial sensation preserved. Face symmetric. Hearing grossly intact to finger rub. Palatoglossal movements intact. Shoulder shrug and head turn strong. MOTOR: normal bulk/tone. No adventitial movements. UMN weakness in BUEs at 4+/ 5. Hip flexor weakness 4+/5. Otherwise full power. SENSORY: reduced PP in the dorsum of the feet, otherwise intact. No extinction. COORD: no ataxia FN/HS. Bob preserved. REFLEX: plantars down. No clonus. DTRS 2/4. GAIT: deferred to PT safety eval DATA REVIEW: Labs reviewed in EMR PERSONALLY INTERPRETED RESULTS AND DATA: CT head wo reviewed - right frontal cortical hemorrhage with surrounding vasogenic edema associated with soft tissue/calvarial mass, perhaps a bit larger in size than prior exam 03/25. Stable 7mm [id number] subfalcine herniation. CSF spaces around the brainstem preserved. 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 He is losing tone without any postictal confusion. He does have a substrate for seizure, but the semiology is not compelling for seizure. Further, he is on potent seizure prophylaxis with levetiracetam 750mg BID (with no prior seizure). Ictal asystole/severe bradycardia is a described phenomenon of insular/temporal lobe seizures, but this is quite rare, and his pathology is overwhelmingly effecting the frontal lobe (some trace blood products seen abutting the temporal cortex). Does not sound like an intracranial pressure phenomenon - symptomatically, he is not having changes in BRADY with Valsalva like maneuvers, no nausea/vomiting, no visual disturbance, no fluctuating LOC. Architecturally, his diencephalon doesn 't have significant mass effect upon it and brainstem has plenty of CSF space around it. Would continue cardiac workup per primary team - may need more prolonged outpatient monitoring for arrhythmia. Would continue seizure prophylaxis. Would continue evaluation and treatment of known metastatic cancer with oncology and neurosurgery. If cardiac issues have been fully ruled out, would likely benefit from prolonged physiologic monitoring in an epilepsy monitoring unit (if aggressive measures are to be pursued going forward). No further recommendations.
--- NOTE | 2017-04-05 11:50 | GCON ---
[f rep st] CONSULTATION NEUROSURGICAL CONSULTATION CHIEF COMPLAINT: Syncope. HISTORY OF PRESENT ILLNESS: The patient is a 71-year-old male, with a history of metastatic prostat e cancer. He was admitted to [facility] approximately 10 days ago with syncope. He underwent an extensive workup, which was negative for any cardiac origin. He was started on Keppra , then subsequently discharged. Over the course of last week, he had 4 different episodes of sudden syncope, without any type of precipitating event. His last episode of syncope was witnessed by his nurse, where his eyes rolled back. There was no tonic-clonic movement, tongue-biting, or incontine nce. He currently complains of a headache with some nausea. He denies any weakness, paresthesias, emesis, or bowel or bladder problems. PAST MEDICAL HISTORY: 1. Metastatic prostate cancer. 2. Pulmonary emboli in February 2016. 3. Chronic pain. 4. Obstructive sleep apnea. 5. Hyperlipidemia. MEDICATIONS PRIOR TO ADMISSION: Prednisolone eye drops, Jevtana, Lupron, Zometa, Xanax, doxycycline , hydrocodone, Keppra, omeprazole, oxycodone, pravastatin, senna, Effexor. ALLERGIES: Morphine. FAMILY HISTORY: Patient has no family history of metastatic cancer. SOCIAL HISTORY: Patient is and has children. He does not drink and does not smoke. REVIEW OF SYSTEMS: Negative. PHYSICAL EXAM: GENERAL APPEARANCE: Patient is a 71-year-old male lying in bed, in no apparent dist ress. HEAD, EYES, EARS, NOSE, AND THROAT: Negative for drainage. EXTREMITIES: [place], warm, and dr y. NEUROLOGICAL: Patient is awake, alert, oriented x4. Pupils equal, round, reactive to light. E xtraocular motions are intact. There is no evidence of facial droop. Tongue and uvula are midline. Spinal accessory muscles are intact. His motor strength is 5 out of 5 in all muscle groups of his upper and lower extremities. His sensation is grossly intact to light touch in his arms and legs. Deep tendon reflexes are 1+ out of 4 in the bilateral biceps, triceps, brachioradialis, patellar, a nd Achilles. There is a negative Celso's. No clonus and no pronator drift. DIAGNOSTIC STUDIES: Head CT without contrast from [facility] PAX on 04/04/2017, is reviewed, in comparison with the previous MRI of his brain from March 25, 2017. There is a left fron mera temporoparietal osseous metastatic lesion with some parenchymal involvement. This is slightly l arger in comparison to the previous MRI from March 25. The current lesion measures approximately 5 .5 x 2.5 cm, with approximately 7 mm of dqss-td-dzswf shift. There is no evidence of hydrocephalus. There is moderate mass effect associated with this lesion. IMPRESSION: This is a 71-year-old male, who was admitted with syncope. He has a known left frontop arietal metastatic lesion with osseous involvement. He is grossly neurologically stable. PLAN: All the above discussed in detail with the patient and Dr. Souza. This patient was seen last week by Dr. Souza, and his case was discussed at Tumor Board. The consensus at Tumor Board was noble t since there were no good options for systemic chemotherapy, that he would likely benefit from surg ical resection. It was discussed with the patient that brain tumors typically do not cause syncope without any type of precipitating event. If he was to be symptomatic with increasing mass effect, w e would expect progressive headaches, nausea, and uneven somnolence, but not necessarily syncope. T hese episodes of syncope may be related to an underlying epileptic nature. However, he has been on Keppra for the last week at 750 mg p.o. b.i.d., with no change or improvement of his syncopal episod es either. Neurology has been consulted, and we will defer to them for their recommendations in reg syd to his epileptic medications. Unless there is a new chemotherapy agent which can improve his sy stemic disease, we would still be reluctant to consider surgical intervention. At this point in yany cm, we will follow him on a conservative basis. He does not need any further repeat brain imaging, u nless he has a change in his neurological condition. Please call with any neurological changes. /[id number]/MODL
[2017-04-05] MEDS: prednisoLONE ACET 1% 5 ML OPHT.BTL LEFTEYE SCH ×3 (12:39→21:51)
[2017-04-05] MEDS: DOXYCYCLINE HYCLATE 100 MG CAP/TAB PO SCH ×2 (12:41→21:49)
[2017-04-05] MEDS: VENLAFAXINE XR 75 MG CAP PO SCH (12:41)
--- NOTE | 2017-04-05 15:56 | HOSPPROG ---
Hospitalist Progress Note Assessment/Plan: 71-year-old male admitted with syncope. Gentleman's been noted in the last 2 weeks to have intermittent episodes of sudden syncope without warning. There has been no chest pain dizziness weakness or shortness of breath associated. This is his 2nd admission for similar problem. Patient is new to me today. - Syncope: Gentleman has no warning events. He has known osseous lesion with extension into the cerebral parenchyma with some hemorrhage. He is currently off anticoagulation. In his last hospitalization the possibility of seizure was presented and he has been placed on Keppra, strong anti-lipid medication. Neurology consult regarding in this matter is appreciated today. During this hospitalization we have not seen any orthostasis or cardiac rhythm Disturbance. Additionally a neurosurgical consult is appreciated. Here there is no signs of increased intracranial pressure and the patient does not have a problem of headache or weakness preceding this to suggest possibility of increased intracranial pressure or cerebral infection. The syncope is considered to be of cardiac origin. I have discussed the case with Oncology, Dr. Bailee Sears. The feeling is that he does have an extensive metastatic disease which may be responsive to chemotherapy. Will plan to continue his monitoring and watch for rhythm disturbance. also plan on chemotherapy as an outpatient should his syncope workup proved negative. - Metastatic prostatic carcinoma: Plan for chemotherapy as an outpatient. - History of pulmonary embolus in 2016 now off anticoagulation due to the hemorrhagic nature of his osseous extension into the cerebral parenchyma. Patient is on SCDs. - OSAS - Pain management with usual narcotic medications as an outpatient. Plan: Will continue cardiac monitoring and watch for cardiac rhythm disturbance. Check orthostatic blood pressures. Plan on outpatient chemotherapy if no cardiac rhythm disturbance is identified. Case has been discussed with Oncology. Time: 50 minutes Subjective: reports he is feeling improved but denies having headache nausea vomiting fever cough shortness of breath. There is also no history of dysuria frequency to suggest a possible vasovagal origin. Objective: Vital Signs Temp Pulse Resp BP Pulse Ox 36.6 C 80 15 112/60 99 04/05/17 12:00 04/05/17 12:00 04/05/17 12:00 04/05/17 11:42 04/05/17 12:00 Laboratory Results 04/05/17 05:40 04/05/17 05:40 04/04/17 04/05/17 04/06/17 05:59 05:59 05:59 Intake Total 550 Balance 550 PT 12.3 SEC (12.0-15.0) 04/04/17 12:35 INR 0.92 (0.83-1.16) 04/04/17 12:35 - Time Spent With Patient Time Spent with Patient: greater than 35 minutes Time Spent with Patient: Greater than 35 minutes spent on this patients care, greater than 50% of time spent counseling, educating, and coordinating care regarding the above mentioned plan. - Physical Exam Constitutional: no apparent distress Eyes: PERRL, anicteric sclera Ears, Nose, Mouth, Throat: moist mucous membranes, hearing normal Cardiovascular: regular rate and rhythym, no murmur, rub, or gallop Respiratory: no respiratory distress, no rales or rhonchi Gastrointestinal: normoactive bowel sounds, soft, non-tender abdomen, no palpable masses Genitourinary: no bladder fullness Skin: warm Musculoskeletal: full muscle strength Neurologic: AAOx3, CN II-XII Intact Psychiatric: interacting appropriately ICD10 Worksheet Patient Problems: Problems Problem Status Onset Primary osteoarthritis of right knee Acute Primary osteoarthritis of left knee Acute Prostate cancer metastatic to liver Acute Post procedure discomfort Acute Bronchitis Acute Left arm pain Acute Prostate cancer metastatic to bone Acute Intractable back pain Acute Syncope Acute Subdural hematoma Acute Mass of left temporal lobe Acute Syncope Acute Cerebral edema Acute
[2017-04-05] MEDS: DEXAMETHASONE 4 MG TAB PO SCH ×2 (16:06→21:47)
--- NOTE | 2017-04-05 16:35 | GCON ---
[f rep st] CONSULTATION ONCOLOGY INITIAL VISIT PRIMARY ONCOLOGIST: Anthony Maldonado MD. REASON FOR CONSULTATION: Metastatic prostate cancer. HISTORY OF PRESENT ILLNESS: The patient is a 71-year-old gentleman initially diagnosed in 2011 with stage IIB prostate cancer, [place], history of androgen deprivation therapy and radiation, was co mpleted in October 2012, hormone therapy through June 2014. Due to rising PSA, he had a biopsy , which showed residual disease, and he underwent cryotherapy by Dr. Edwards in February 2015. He then had rising PSA again, and he had a biopsy-confirmed prostate cancer, I believe in the liver, so he u nderwent 6 cycles of Taxotere, which completed in October 2015 with a partial response. He then und erwent y90 embolization in January 2016. Around this time, he developed pulmonary embolism, was on an ticoagulation. In February 2016, due to progression, he started on enzalutamide and palliative radiation to his T-spine in May 2016. In October 2016, he developed a C7 cord compression and a mass on t he left side of his brain. The neck mass was resected, and he had radiation to the neck and skull, and switched to abiraterone, as well as Xofigo. However, he is clearly progressing, so on March 16, he started on cabazitaxel. He was admitted on March 25 with progressive lightheadedness, and was found to have a growing mass in the left frontotemporal area that had associated hemorrhage consiste nt with a local recurrence. This is in the radiation field. The plan was to continue chemotherapy, and to irradiate the mass, holding off on surgery for now, since it was not large. He was admitted to the hospital yesterday after having an observed loss of consciousness. repo rts that he often has these "syncopal spells" that seem to come on suddenly, without any prodromal s ymptoms. He did not have chest pain or shortness of breath. He may have had some convulsions, but it is not felt that he had clear seizure activity. He was admitted to the hospital and evaluated, a nd felt that it is probably syncopal episodes due to his intracranial mass. He is still having a he adache, and he was walking a little bit, but was lightheaded in the halls, but, according to the hos pitalist, his cardiac evaluation has been unremarkable. Of note, with the bleeding in his brain las t week, he was taken off warfarin. ALLERGIES: He is allergic to morphine. MEDICATIONS: At home included Effexor, Senokot, OxyContin, pravastatin, omeprazole, Keppra, [place], doxycycline, alprazolam as needed. He is also on dexamethasone 8 mg twice daily. He is getting zol edronic acid and cabazitaxel in the office. PAST MEDICAL HISTORY: Chronic illnesses: 1. Prostate cancer, as above. 2. Pulmonary embolism, January 2016. PAST SURGICAL HISTORY: Bilateral knee, appendectomy, hernia, eye surgery for detached retina, catar act surgery, and cord compression surgery. SOCIAL HISTORY: He is , and lives with his . Previous smoker. No alcohol. FAMILY HISTORY: Positive for malignancy in his father. REVIEW OF SYSTEMS: Ten-point review was performed. Pertinent positives in the HPI, and otherwise n egative. PHYSICAL EXAM: VITAL SIGNS: Temperature is 36.6, pulse is 80, blood pressure is 112/60. While in the hospital, his lowest blood pressure is 102/87. GENERAL: A little uncomfortable from the headac he, but in no distress. Most of the headache is on the left side where the tumor is. HEENT: Unrem arkable. Extraocular muscles are intact. LUNGS: Clear. CARDIAC: Regular. ABDOMEN: Soft. NEUR OLOGICAL: Nonfocal. LABORATORY DATA: The white count is normal, hemoglobin is 11.6, platelet count 101,000. Sodium is a little low at 130, creatinine is normal at 0.8. LFTs unremarkable. IMPRESSION: 1. Metastatic prostate cancer growing brain metastasis. 2. Recent subdural bleed related to trauma while on warfarin. 3. History of pulmonary embolism, January 2016. 4. Syncopal events, probably due to swelling and cerebral mass. PLAN: Continue chemotherapy, and then start radiation next week. He is stable to start chemotherap y this week, but this will be arranged through the outpatient clinic. Recommend watching him 1 more day to make sure he continues to improve and monitor him, and then perhaps discharge him early Frid ay morning if he is stable, and have him come over to the clinic for chemotherapy before going home. The family is aware that his options are becoming limited, but are hopeful that at least we can al leviate some of these more serious symptoms with the chemo and the radiation. I will follow along with you. /[id number]/MODL
[2017-04-05] MEDS: ALPRAZolam 0.5 MG TAB PO SCH (21:48)
[2017-04-05] MEDS: PRAVASTATIN SODIUM 40 MG TAB PO SCH (21:48)
[2017-04-05] MEDS: SENNOSIDES/DOCUSATE SODIUM TAB PO SCH (21:49)
[2017-04-06] MEDS: HYDROCODONE/APAP 10/325 TAB PO PRN ×2 (04:33→18:08)
[2017-04-06] MEDS: prednisoLONE ACET 1% 5 ML OPHT.BTL LEFTEYE SCH ×4 (04:35→20:53)
--- NOTE | 2017-04-06 07:55 | NEUSURGPN ---
Assessment/Plan: Assessment: 71 yo male that is admitted to with widely metastatic prostate CA Plan: -metastatic prostate CA with left frontal skull met and some mass effect on frontal lobe -pt presented at [facility] and decision for no surgery-oncology on board -plan from oncology for XRT/chemo to start on Monday -defer to IM for eval and treatment of syncopal episode -NS to sign off -please call with any questions or concerns -pt can follow up with Dr Souza as needed Subjective: Awake and alert, resting in chair. No new nova/neck/chest/abd or gu complaints Objective: AAO x 3, PERRLA/EOMI no droop SAUNDRA x 4 +cms/nv intact x 4 Neuro Check Frequency: per routine - Physician Discussed Patient with : [facility] Physical Exam - Vitals, I&O, Labs I and O 04/05/17 04/06/17 04/07/17 05:59 05:59 05:59 Intake Total 550 600 Output Total 500 Balance 550 100 Weight 107.8 kg Intake: Oral (ml) 550 600 Output: Urine (ml) 500 Toilet 500 Other: Number of Voids 1 Bedside Commode 1 Toilet 1 2 Number of Stools Bedside Commode 1 Vital Signs Temp Pulse Resp BP Pulse Ox 36.6 C 65 11 L 117/70 96 04/06/17 07:22 04/06/17 07:22 04/06/17 07:22 04/06/17 07:22 04/06/17 07:22 Laboratory Results 04/05/17 05:40 04/05/17 05:40 ICD10 Worksheet Patient Problems: Problems Problem Status Onset Cerebral edema Acute Mass of left temporal lobe Acute Syncope Acute Bronchitis Acute Intractable back pain Acute Left arm pain Acute Post procedure discomfort Acute Primary osteoarthritis of left knee Acute Primary osteoarthritis of right knee Acute Prostate cancer metastatic to bone Acute Prostate cancer metastatic to liver Acute Subdural hematoma Acute Syncope Acute
[2017-04-06] MEDS: DEXAMETHASONE 4 MG TAB PO SCH ×2 (08:57→20:50)
[2017-04-06] MEDS: levETIRAcetam 250 MG TAB PO SCH ×2 (08:57→20:50)
[2017-04-06] MEDS: PANTOPRAZOLE SODIUM 40 MG TAB PO SCH (08:58)
[2017-04-06] MEDS: oxyCODONE CR 30 MG TAB PO SCH ×2 (08:58→20:51)
[2017-04-06] MEDS: VENLAFAXINE XR 75 MG CAP PO SCH (12:04)
[2017-04-06] MEDS: DOXYCYCLINE HYCLATE 100 MG CAP/TAB PO SCH ×2 (12:05→20:50)
--- NOTE | 2017-04-06 15:47 | SOAPPROG ---
SOAP Progress Note Assessment/Plan: E&M for prostate cancer * Metastatic Prostate Cancer with brain mets: Due for cabazitaxel tomorrow. He will be discharged in [facility] if stable and go to the office for therapy. Prognosis overall is guarded. Plan is to continue chemotherapy and start radiation to brain lesion next week. * "Syncope": episode today without cardiac changes. Looks unlikely to be a cardiac problem. Probably related to osseous lesion with extension into the cerebral parenchyma with some hemorrhage. Discussed with [facility]. Will continue to monitor overnight. Continue steroids and keppra. * H/O pulmonary embolus in 2016: Off anticoagulation due to the hemorrhagic nature of his osseous extension into the cerebral parenchyma. * Pain management with usual narcotic medications as an outpatient. Subjective: Had witnessed episode without seizure activity or changes in cardiac parameters. Stopped walking and was non-verbal. Currently feeling fine. Objective: Vital Signs Temp Pulse Resp BP Pulse Ox 36.4 C 84 16 105/61 96 04/06/17 12:02 04/06/17 12:02 04/06/17 12:02 04/06/17 12:02 04/06/17 12:02 Laboratory Results 04/05/17 05:40 04/05/17 05:40 04/05/17 04/06/17 04/07/17 05:59 05:59 05:59 Intake Total 550 600 Output Total 500 Balance 550 100 PT 12.3 SEC (12.0-15.0) 04/04/17 12:35 INR 0.92 (0.83-1.16) 04/04/17 12:35 Physical Exam - Physical Exam General Appearance: no apparent distress Respiratory: lungs clear Cardiac/Chest: regular rate, rhythm ICD10 Worksheet Patient Problems: Problems Problem Status Onset Cerebral edema Acute Mass of left temporal lobe Acute Syncope Acute Bronchitis Acute Intractable back pain Acute Left arm pain Acute Post procedure discomfort Acute Primary osteoarthritis of left knee Acute Primary osteoarthritis of right knee Acute Prostate cancer metastatic to bone Acute Prostate cancer metastatic to liver Acute Subdural hematoma Acute Syncope Acute
--- NOTE | 2017-04-06 16:40 | HOSPPROG ---
Hospitalist Progress Note Assessment/Plan: 71-year-old male admitted with syncope. Gentleman's been noted in the last 2 weeks to have intermittent episodes of sudden syncope without warning. There has been no chest pain dizziness weakness or shortness of breath associated. This is his 2nd admission for similar problem. - Syncope: Gentleman has no warning events. He has known osseous lesion with extension into the cerebral parenchyma with some hemorrhage. He is currently off anticoagulation. In his last hospitalization the possibility of seizure was presented and he has been placed on Keppra, strong anti-lipid medication. Neurology consult regarding in this matter is appreciated today. During this hospitalization we have not seen any orthostasis or cardiac rhythm Disturbance. Additionally a neurosurgical consult is appreciated. Here there is no signs of increased intracranial pressure and the patient does not have a problem of headache or weakness preceding this to suggest possibility of increased intracranial pressure or cerebral infection. The syncope is considered to be of cardiac origin. I have discussed the case with Oncology, Dr. Bailee Sears. The feeling is that he does have an extensive metastatic disease which may be responsive to chemotherapy. 04/07/2017: today the patient had a witnessed episode with the nurse. He was walking with a nurse in suddenly just stood and stared and did not respond his blood pressure pulse and rhythm or all stable. This might be an abscess on seizure but it is not a problem of cardiac origin during this witnessed event. There was no tonic colonic activity no eye deviation. - Metastatic prostatic carcinoma: Plan for chemotherapy as an outpatient Tomorrow. - History of pulmonary embolus in 2016 now off anticoagulation due to the hemorrhagic nature of his osseous extension into the cerebral parenchyma. Patient is on SCDs. - OSAS - Pain management with usual narcotic medications as an outpatient. Plan: Will continue cardiac monitoring and watch for cardiac rhythm disturbance. Disposition tomorrow in the early a.m. for chemotherapy at our [facility] [place] [place]. Following that visit he will be seen at [facility] for a 30 day monitor. Time: 50 minutes Subjective: No complaints of headache nausea vomiting for seizure fever chills o s Objective: Vital Signs Temp Pulse Resp BP Pulse Ox 36.6 C 68 13 121/65 H 93 04/06/17 16:00 04/06/17 16:00 04/06/17 16:00 04/06/17 16:00 04/06/17 16:00 Laboratory Results 04/05/17 05:40 04/05/17 05:40 04/05/17 04/06/17 04/07/17 05:59 05:59 05:59 Intake Total 550 600 Output Total 500 Balance 550 100 PT 12.3 SEC (12.0-15.0) 04/04/17 12:35 INR 0.92 (0.83-1.16) 04/04/17 12:35 - Time Spent With Patient Time Spent with Patient: greater than 35 minutes Time Spent with Patient: Greater than 35 minutes spent on this patients care, greater than 50% of time spent counseling, educating, and coordinating care regarding the above mentioned plan. - Pending Discharge Pending Discharge Within 24 Hours: Yes Pending Discharge Date: 04/07/17 Pending Discharge Time: 11:00 - Physical Exam Constitutional: no apparent distress Eyes: PERRL Ears, Nose, Mouth, Throat: moist mucous membranes Cardiovascular: regular rate and rhythym, no murmur, rub, or gallop Respiratory: no respiratory distress, no rales or rhonchi Gastrointestinal: normoactive bowel sounds, soft, non-tender abdomen Genitourinary: no bladder fullness Skin: warm Musculoskeletal: full muscle strength Neurologic: AAOx3, CN II-XII Intact ICD10 Worksheet Patient Problems: Problems Problem Status Onset Primary osteoarthritis of right knee Acute Primary osteoarthritis of left knee Acute Prostate cancer metastatic to liver Acute Post procedure discomfort Acute Bronchitis Acute Left arm pain Acute Prostate cancer metastatic to bone Acute Intractable back pain Acute Syncope Acute Subdural hematoma Acute Mass of left temporal lobe Acute Syncope Acute Cerebral edema Acute
[2017-04-06] MEDS: ALPRAZolam 0.5 MG TAB PO SCH (20:49)
[2017-04-06] MEDS: PRAVASTATIN SODIUM 40 MG TAB PO SCH (20:52)
[2017-04-06] MEDS: SENNOSIDES/DOCUSATE SODIUM TAB PO SCH (20:52)
[2017-04-07] MEDS: HYDROCODONE/APAP 10/325 TAB PO PRN (00:38)
[2017-04-07 05:22] VITALS: O2SAT 96
[2017-04-07] MEDS: prednisoLONE ACET 1% 5 ML OPHT.BTL LEFTEYE SCH (05:23)
[2017-04-07 05:28] LABS: % IMMATURE GRANULYOCYTES 1.4 % (0.0-1.1); ABSOLUTE IMMATURE GRANULOCYTES 0.07 10^3/uL (0.00-0.10); ADD DIFF? NO; ADD MORPH? NO; ADD SCAN? NO; ATYPICAL LYMPHOCYTE FLAG 0 (0-99); FRAGMENT RBC FLAG 0 (0-99); HEMATOCRIT 34.2 % (40.0-51.0); HEMOGLOBIN 11.6 g/dL (13.7-17.5); LEFT SHIFT FLG 20 (0-99); LIPEMIA HEMOLYSIS FLAG 90 (0-99); MEAN CELL HEMOGLOBIN 34.2 pg (27.9-34.1); MEAN CELL HEMOGLOBIN CONCENTR. 33.9 g/dL (32.4-36.7); MEAN CELL VOLUME 100.9 fL (81.5-99.8); MEAN PLATELET VOLUME 9.4 fL (8.7-11.7); PLATELET CLUMPS FLAG 0 (0-99); PLATELET COUNT 98 10^3/uL (150-400); RED BLOOD CELL COUNT 3.39 10^6/uL (4.40-6.38)
[2017-04-07 05:43] LABS: ALANINE AMINOTRANSFERASE 55 IU/L (21-72); ALBUMIN 2.9 g/dL (3.5-5.0); ALKALINE PHOSPHATASE 65 IU/L (38-126); ANION GAP 4 mEq/L (8-16); ASPARTATE AMINOTRANSFERASE 70 IU/L (17-59); BILIRUBIN,TOTAL 0.7 mg/dL (0.1-1.4); CALCIUM 8.4 mg/dL (8.5-10.4); CARBON DIOXIDE 24 mEq/l (22-31); CHLORIDE 103 mEq/L (97-110); CREATININE 0.8 mg/dL (0.7-1.3); GLOMERULAR FILTRATION RATE > 60; GLUCOSE 119 mg/dL (70-100); POTASSIUM 5.1 mEq/L (3.5-5.2); SODIUM 131 mEq/L (134-144); TOTAL PROTEIN 5.1 g/dL (6.3-8.2)
[2017-04-07 08:36] VITALS: BP 120/66; PULSE 63; RESP 11; TEMP 97.7
[2017-04-07] MEDS: levETIRAcetam 250 MG TAB PO SCH (08:40)
[2017-04-07] MEDS: DEXAMETHASONE 4 MG TAB PO SCH (08:41)
[2017-04-07] MEDS: PANTOPRAZOLE SODIUM 40 MG TAB PO SCH (08:41)
[2017-04-07] MEDS: oxyCODONE CR 30 MG TAB PO SCH (08:41)
--- NOTE | 2017-04-07 09:52 | GDS ---
[f rep st] DISCHARGE SUMMARY NEW AND ACUTE DIAGNOSES ON THIS ADMISSION: 1. Acute syncope, probably of noncardiac origin. 2. Prostatic carcinoma metastatic with cerebral extension. 3. History of a pulmonary embolus, now off anticoagulation because of hemorrhagic conversion of a m etastatic lesion. 4. Obstructive sleep apnea syndrome. 5. Hyponatremia, with a discharge sodium of 131. 6. Thrombocytopenia and anemia secondary to malignancy and chemotherapy. 7. Cognitive impairment. 8. Chronic peripheral edema. 9. Pain management with narcotic medication. 10. Severe protein caloric malnutrition, with an albumin of 2.9. CHRONIC DIAGNOSIS: Chronic peripheral edema. CONSULTATIONS: Neurosurgery, Neurology and Oncology. HOSPITAL COURSE: This is a 71-year-old male, who presented with a problem of syncope. He was seen earlier for a similar problem, and was discharged, and then had 4 episodes of what was described as syncope, in which he would collapse to the floor without memory of the event. Following admission, a head CT was performed showing a left frontal and parietal osseous metastases with left frontal lob e cortical hemorrhage, which had appeared to increase in size from previous study. There was a smal l foci of left temporal and frontal cortical petechial hemorrhage also. Neurosurgery felt that this lesion was not the result of the gentleman's syncope. Additionally, neurology felt that there was not sufficient findings on the CT scan or on physical ex am to explain the syncopal episodes being related to a neurologic cause. One of the events was witn essed by nursing. He was found to simply during course of a walk to stand rigidly alert, but not sp eaking or interacting. He did not have tonic-clonic activity. There was no eye deviation, and the gentleman's blood pressure and pulse were normal during this event. Cardiac monitoring during the h ospitalization found no cardiac rhythm disturbance. Thus, it is felt that it is unlikely that this gentleman's episodes are of cardiac origin. Oncology feels that it is a combination of his metastat ic prostatic carcinoma, the cerebral extension of an osseous lesion of the scalp, and medication rocky ng with some cognitive impairment. A cognitive evaluation was performed and notes that he has significant impairments. The patient ach ieved a score of 15/30. His primary areas of deficit include visual spatial and executive functioni ng. He has also difficulties with serial subtraction and delayed recall of 5 new words, achieving 0 /5, with no benefit to category cue. It was recommended that they continue cognitive diagnostic pro bes and education. A log book was suggested. Overall, the episodes that are described as syncopal, do not appear to be true syncopal events. The y may be a type of seizure, although, at this time feeling is they are combination of a problem both related to medication, his cognitive impairment, the spread of his metastatic carcinoma and potenti ally chemotherapy. The plan at this point is to continue his chemotherapy, as the only beneficial t herapeutic option. Additionally, it is planned to have a 30 day director credit risk placed just for the insurance that it is not a cardiac rhythm disturbance. DISCHARGE MEDICATIONS: Effexor XR 75 mg daily, Senna-S tablets 1-2 p.o. q.h.s., OxyContin 60 mg p.o . b.i.d., pravastatin 40 mg h.s., omeprazole 20 mg daily, Keppra 750 mg p.o. b.i.d., Lupron 1 mg sub cu q.90 days, Strawberry 10/325 mg tablets 1-2 p.o. q.6 hours p.r.n. breakthrough pain, Vibramycin 100 mg b.i.d., Jevtana 60 mg IV q.21 days, Xanax 1 mg q.h.s., Zometa q.30 days, Pred Forte 1% eyedrops to the left eye, dexamethasone 8 mg b.i.d. PLAN: The gentleman will be discharged in the company of his , to home care. He is to go after this discharge to [facility] for his chemotherapy. 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 Review of the gentleman's medications may be helpful. Note that he is taking both OxyContin and Nor co, and perhaps his narcotic regime can be diminished, as I did not note that he was in significant pain during this hospitalization. Additionally, the patient cannot explain why he is taking Vibramy brittney, and perhaps this also can be stopped. He also takes Xanax. Thus, the combination of his Strawberry , OxyContin and Xanax may be impairing his cognitive function. LABORATORIES: Of note at the time of discharge, PSA was 797. Sodium 131, hemoglobin 11.6, platele t count 98,000. Coagulation normal. His TSH was also low at 0.123, with a normal free T4 1.04, his total T3 was also low at 0.640. TIME: This discharge required 55 minutes, greater than 50% to family counselor, coordinate his care. /[id number]/MODL
== END 2017-04-07 10:00 | disposition home or self-care (01) | DRG 312 ==
LOC: EEVIPCON 11:15 → F2N 16:11
PROVIDERS: ADMIT Student in an Organized Health Care Education/Training Program; ATTEND Student in an Organized Health Care Education/Training Program
DX: R55 Syncope and collapse (principal); C79.31 Secondary malignant neoplasm of brain; C79.51 Secondary malignant neoplasm of bone; C78.7 Secondary malignant neoplasm of liver and intrahepatic bile duct; E87.1 Hypo-osmolality and hyponatremia; D69.6 Thrombocytopenia, unspecified; D64.81 Anemia due to antineoplastic chemotherapy; G31.84 Mild cognitive impairment of uncertain or unknown etiology; G89.29 Other chronic pain; E43 Unspecified severe protein-calorie malnutrition; G47.33 Obstructive sleep apnea (adult) (pediatric); Z86.711 Personal history of pulmonary embolism; Z87.891 Personal history of nicotine dependence; Z96.653 Presence of artificial knee joint, bilateral; Z85.46 Personal history of malignant neoplasm of prostate
CPT/HCPCS: 84480-90; 92523-GN; 92610-GN; 97116-GP; 97161-GP; 97166-GO; 97530-GP; 97532-GO; 97535-GO; G8978-GP-CI; G8979-GP-CI; G8980-GP-CI; G8987-GO-CJ; G8988-GO-CI; G8989-GO-CI; G8996-GN-CI; G8996-GN-CK; G8997-GN-CI; G8997-GN-CJ; G8998-GN-CI

== ENCOUNTER 2017-04-23 12:17 | Emergency (ER) | payer OTHER, MEDICARE ==
--- NOTE | 2017-04-23 13:25 | EDPHY ---
H & P Time Seen by Provider: 04/23/17 12:50 HPI/ROS: CHIEF COMPLAINT: Dysuria HISTORY OF PRESENT ILLNESS: The patient is a 71-year-old male with a history of metastatic prostate cancer in numerous other medical problems who presents to the emergency department with ongoing dysuria. Patient just finished fibrosis of radiation therapy on his brain. He is scheduled to start his new chemotherapy on the . The patient has had increased dysuria for the past 2 days. Last night they collected urine and brought it to the lab. That urine study was negative. Patient states the discomfort is moderate with urination only. No abdominal pain. No nausea or vomiting. No fevers or chills. No back pain. Patient has decreased mental status that is his baseline per his family. This is unchanged. REVIEW OF SYSTEMS: My complete review of systems is negative except as mentioned in the HPI. Past Medical/Surgical History: Includes metastatic prostate cancer, pulmonary embolus (off anticoagulation), cognitive dysfunction, obstructive sleep apnea, thrombocytopenia, anemia, edema , chronic pain Smoking Status: Former smoker Physical Exam: 107/63, 75, 20, 96 GENERAL: No acute distress. Mildly somnolent. Baseline. HEENT: Left eye droop, normal pharynx, no signs of dehydration. NECK: No thyromegaly, no lymphadenopathy, supple. RESPIRATORY: Clear to auscultation bilaterally, no rales, rhonchi or wheezing. CVS: Regular rate and rhythm, no rubs, murmurs, or gallops. ABDOMEN: Soft, nontender, nondistended, no organomegaly. BACK: Normal to inspection, no CVA tenderness. SKIN: Normal color, no rash, warm, dry. No pallor. EXTREMITIES: No pedal edema, no calf tenderness, no Homans sign or cords, no joint swelling. NEURO/PSYCH: Patient's mental status is at baseline per the nurse and . Mildly somnolent. Moves all extremities. Constitutional: Initial Vital Signs Heart Rate 75 04/23/17 12:20 Respiratory Rate 20 04/23/17 12:20 Blood Pressure 107/63 04/23/17 12:20 O2 Sat (%) 96 04/23/17 12:20 O2 Delivery Mode Room Air Allergies/Adverse Reactions: morphine Allergy (Intermediate, Verified 04/23/17 12:20) HALLUCINATIONS, AGGRESSION Home Medications: Medication Instructions Recorded ALPRAZolam [Xanax 0.5 MG (*)] 1 mg PO HS 04/04/17 Cabazitaxel [Jevtana 60 mg (*)] 1 ea IV Q21D 04/04/17 Doxycycline Hyclate [Vibramycin 100 mg PO BID@12,21 04/04/17 100 MG (*)] HYDROcodone/APAP 10/325 [Beckley 1 - 2 tab PO Q6 PRN 04/04/17 10/325 (*)] LEVETIRACETAM [Keppra 750 mg] 750 mg PO BID 04/04/17 Leuprolide Acetate [Lupron] 1 mg SQ Q90D 04/04/17 Omeprazole 20 mg PO DAILY 04/04/17 Pravastatin Sodium 40 mg PO HS 04/04/17 Sennosides/Docusate Sodium 1 - 2 each PO HS 04/04/17 [Senna-S Tablet] Venlafaxine Xr [Effexor Xr 75MG 75 mg PO DAILY@12 04/04/17 (*)] Zoledronic Acid [Zometa] 1 ea IV Q30D 04/04/17 oxyCODONE HCL [Oxycontin] 60 mg PO BID 04/04/17 prednisoLONE ACET 1% [Pred Forte 1 drops LEFTEYE QID 04/04/17 1% (*)] Dexamethasone [Decadron 4 MG (*)] 8 mg PO BID #28 tab 04/07/17 Medical Decision Making ED Course/Re-evaluation: In the emergency department I discussed possible etiologies with the patient and his family. Per report, the patient is at his baseline with the addition of dysuria. I reviewed the urine study from last night. It was negative. Urine was obtained today and a culture was sent. I discussed the case with Dr. Sears. He does not with the patient started on antibiotics at this time. He agrees with the plan to start Pyridium. I discussed this with the patient and his family. I answered all her questions. They are given warnings prior to leaving. They will return with worsening symptoms. Differential Diagnosis: Differential includes but is not limited to urinary tract infection, pyelonephritis, prostatitis, cystitis, dysuria, metastatic prostate disease, electrolyte abnormality, sugar abnormality, anemia, dehydration Departure - Departure Disposition: Home, Routine, Self-Care Clinical Impression: Dysuria Condition: Good Instructions: Dysuria (ED) Additional Instructions: Return with increasing pain. The medication you been prescribed may turn urine red. I urine culture is pending. Referrals: Osiel Chino DO [Primary Care Provider] - 2-3 days, if not improved Anthony Maldonado MD [Medical Doctor] - 2-3 days, call for appt.
[2017-04-23 13:31] VITALS: TEMP 97.3
[2017-04-23] MEDS ORDERED: PHENAZOPYRIDINE HCL 200 MG TAB PO ONE (13:34)
[2017-04-23 13:51] VITALS: BP 126/78; PULSE 74; RESP 16; O2SAT 95
== END 2017-04-23 13:51 | disposition home or self-care (01) ==
DX: R30.0 Dysuria (principal); Z85.46 Personal history of malignant neoplasm of prostate; Z87.891 Personal history of nicotine dependence